=== PATIENT | female | born 1985 | race Caucasian/White ===

== ENCOUNTER 2017-03-20 14:19 | Emergency (ER) | payer BC, MEDICAID ==
[~2017-03-20] VITALS: Ht 175.3 cm; Wt 106.6 kg
[~2017-03-20 14:19] MED LIST: ACHD5005 PO; ALBU17AE23 IH; ALBU2.5V4 IH; ALBU8.5H2 IH; ALBUTEROL IH; AZIT500T2 PO; Albuterol HFA IH; BUTA-234 PO; BUTA1CAP39 PO; CETI10TA17 PO; CITA20TA4 PO; DCS100C PO; DOXY100C2 PO; FLUT16SP22 NS; FLUT1DIS26 IH; FRS325T PO; GUAN1TAB17 PO; GUAN2TAB PO; HYDR-1231 PO; IBUP-1780 PO; LRT10T PO; METF500T4; METH4TAB PO; MONT10TA24 PO; MONT5TAB11 PO; ONDA8TAB6 PO; PRD10T PO; PRD20T PO; RT-ALBUINH IH; RT-ALBUINH INH; TIZA2TAB3 PO; [UNRECOGNIZED DRUG - REMARK]
[2017-03-20] MEDS ORDERED: RT-ALBUTEROL SULF 2.5 MG/3 ML PRE-MIX VIAL INH STA (14:40)
[2017-03-20] MEDS ORDERED: LACTATED RINGERS 1,000 ML IV ONE (14:40)
[2017-03-20] MEDS ORDERED: ACETAMINOPHEN 500 MG TAB (TYLENOL) PO ONE (14:45)
--- NOTE | 2017-03-20 14:52 | ED Respiratory ---
General Stated Complaint: N/V/D FEVER Source: patient Exam Limitations: no limitations History of Present Illness Time seen by provider: 14:36 Initial Comments Patient resists ER by private conveyance with a chief complaint that since 10: 00 last night she is had body aches, chills, fever with a MAXIMUM TEMPERATURE of 101F. Her daughter came home sick with very similar symptoms about 6 days ago. Patient has asthma and has been using her Ventolin as well as she took 5 mg albuterol just before coming in. She took 800 mg of Motrin about 5 or 10 minutes before coming in as well. She's not had any Tylenol or Motrin for that. She feels short of breath, wheezy and has had a dry cough. She has not had a flu vaccine this year. Allergies and Home Medications Allergies Coded Allergies: cefuroxime (Verified Allergy, Mild, 08/04/12) Home Medications Albuterol Sulfate 6.7 Gm Hfa.aer.ad, 2 PUFF INH Q4H PRN for SHORTNESS OF BREATH, (Reported) Albuterol Sulfate 8.5 Gm Hfa.aer.ad, 1-2 PUFF IH PRN, #1 Ref 5 2 puffs every 4 hrs as needed for SOB/wheezing Prescribed by: KELLIE CHAHAL on 11/19/15 0830 Cetirizine HCl 10 Mg Tablet, 10 MG PO DAILY, (Reported) Fluticasone Propionate 16 Gm [place].susp, 0 SPRAY NS BID, #1 Prescribed by: WEN LAUREN on 11/19/15 0932 Fluticasone/Salmeterol 1 Each Blst.w.dev, 1 EACH IH BID, #1 Ref 5 Prescribed by: KELLIE CHAHAL on 11/19/15 0830 Guanfacine HCl 2 Mg Tablet, 1 MG PO DAILY, (Reported) TAKES 1/2 (2MG) TABLET Ibuprofen 800 Mg Tablet, 800 MG PO Q8H PRN for PAIN, (Reported) Montelukast Sodium 10 Mg Tablet, 10 MG PO HS, (Reported) Prednisone 10 Mg Tab, 10 MG PO DAILY, #42 Ref 0 Take 6 tabs(60mg)daily, decrease by 1 tab(10mg) every other day. Prescribed by: KELLIE CHAHAL on 11/19/15 0830 Constitutional: chills, diaphoresis, fever, malaise (body aches) EENTM: nose congestion, No ear discharge, No hearing loss, No ear pain, No eye pain, No hoarseness, No nose pain, No throat pain, No throat swelling Respiratory: cough, No phlegm, short of breath, No stridor, wheezing Cardiovascular: No chest pain, No Hx of Intervention, No syncope Gastrointestinal: No abdominal pain, No constipation, No diarrhea, nausea, No vomiting Genitourinary: No discharge, No dysuria : No (Mirena in place) Skin: No pruritus, No rash Psychiatric/Neurological: Headache, Denies Numbness, Denies Paresthesia Past Uzluqxm-Qjsedb-Bncubq Hx Patient Social History Alcohol Use: Denies Use Recreational Drug Use: No Smoking Status: Former Smoker Type Used: Cigarettes Former Smoker, Quit: Nov 04, 2008 Recent Foreign Travel: No Contact w/Someone Who Travel: No Recent Hopitalizations: No Immunizations Up To Date Tetanus Booster (TDap): Unknown Date of Pneumonia Vaccine: Aug 04, 2012 Date of Influenza Vaccine: Apr 10, 2012 Seasonal Allergies Seasonal Allergies: Yes Surgeries Surgeries: Abdominal, Gallbladder, Orthopedic Respiratory Respiratory Disorders: Asthma Neurological Neurological Disorders: Headaches /Migraines, Traumatic Brain Injury 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 System Hx 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 Disorders: No Sexually Transmitted Disease: No HIV/AIDS: No Blood Transfusions Adverse Reaction to a Blood Tr: No Family Medical History Family Medial History: Diabetes mellitus 19 FATHER 19 MOTHER Hypertension 19 FATHER 19 MOTHER Myocardial infarction 19 FATHER 19 MOTHER Physical Exam Vital Signs Vital Sign - Last 12Hours 03/20/17 15:10 Temp 100.4 Pulse 118 Resp 20 B/P (MAP) 143/80 (101) Pulse Ox 95 O2 Delivery Room Air Capillary Refill : General Appearance: WD/WN, mild distress Eyes: Bilateral Eye Normal Inspection, Bilateral Eye PERRL, Bilateral Eye EOMI HEENT: PERRL/EOMI, pharynx normal, other (bilateral TMs dull with clear effusion and retraction on the left side) Neck: non-tender, supple, normal inspection Respiratory: chest non-tender, no respiratory distress, no accessory muscle use , No accessory muscle use, No rales, wheezing, expiration Cardiovascular: normal peripheral pulses, regular rate, rhythm, no edema Gastrointestinal: non tender, soft Extremities: no pedal edema, normal capillary refill Neurologic/Psychiatric: alert, oriented x 3 Skin: normal color, warm/dry Progress/Results/Core Measures Suspected Sepsis SIRS Temperature: Pulse: Respiratory Rate: Laboratory Tests 03/20/17 14:41: White Blood Count 8.5 Blood Pressure / Mean: Laboratory Tests 03/20/17 14:41: Creatinine 0.91, Platelet Count 262, Total Bilirubin 0.6 Results/Orders Lab Results Laboratory Tests Test 03/20/17 14:41 Range/Units White Blood Count 8.5 4.3-11.0 10^3/uL Red Blood Count 4.46 4.35-5.85 10^6/uL Hemoglobin 14.5 11.5-16.0 G/DL Hematocrit 42 35-52 % Mean Corpuscular Volume 94 80-99 FL Mean Corpuscular Hemoglobin 33 25-34 PG Mean Corpuscular Hemoglobin Concent 35 32-36 G/DL Red Cell Distribution Width 13.2 10.0-14.5 % Platelet Count 262 130-400 10^3/uL Mean Platelet Volume 10.8 H 7.4-10.4 FL Neutrophils (%) (Auto) 81 H 42-75 % Lymphocytes (%) (Auto) 6 L 12-44 % Monocytes (%) (Auto) 13 H 0-12 % Eosinophils (%) (Auto) 0 0-10 % Basophils (%) (Auto) 0 0-10 % Neutrophils # (Auto) 6.9 1.8-7.8 X 10^3 Lymphocytes # (Auto) 0.5 L 1.0-4.0 X 10^3 Monocytes # (Auto) 1.1 H 0.0-1.0 X 10^3 Eosinophils # (Auto) 0.0 0.0-0.3 10^3/uL Basophils # (Auto) 0.0 0.0-0.1 10^3/uL Neutrophils % (Manual) 77 % Lymphocytes % (Manual) 10 % Monocytes % (Manual) 12 % Eosinophils % (Manual) 1 % Basophils % (Manual) 0 % Band Neutrophils 0 % Blood Morphology Comment NORMAL Sodium Level 141 135-145 MMOL/L Potassium Level 3.3 L 3.6-5.0 MMOL/L Chloride Level 108 H 98-107 MMOL/L Carbon Dioxide Level 21 21-32 MMOL/L Anion Gap 12 5-14 MMOL/L Blood Urea Nitrogen 10 7-18 MG/DL Creatinine 0.91 0.60-1.30 MG/DL Estimat Glomerular Filtration Rate > 60 BUN/Creatinine Ratio 11 Glucose Level 117 H 70-105 MG/DL Calcium Level 9.1 8.5-10.1 MG/DL Total Bilirubin 0.6 0.1-1.0 MG/DL Aspartate Amino Transf (AST/SGOT) 17 5-34 U/L Alanine Aminotransferase (ALT/SGPT) 26 0-55 U/L Alkaline Phosphatase 58 40-136 U/L C-Reactive Protein High Sensitivity 2.74 H 0.00-0.50 MG/DL Total Protein 7.5 6.4-8.2 GM/DL Albumin 4.3 3.2-4.5 GM/DL Micro Results Microbiology 03/20/17 Influenza Types A,B Antigen (DEJON) - Final, Complete My Orders Orders - JUDD ORANTES Cbc With Automated Diff (03/20/17 14:40) Comprehensive Metabolic Panel (03/20/17 14:40) Hs C Reactive Protein (03/20/17 14:40) Influenza A And B Antigens (03/20/17 14:40) Chest Pa/Lat (2 View) (03/20/17 14:40) Albuterol Pre-Mix Nebs (Rt) (Proventil (03/20/17 14:40) Saline Lock/Iv-Start (03/20/17 14:40) Lactated Ringers (Lr 1000 Ml Iv Solution (03/20/17 14:40) Acetaminophen Tablet (Tylenol Tablet) (03/20/17 14:45) Svn Sm Volume Nebulizer Rt-Rfs (03/20/17 14:40) Manual Differential (03/20/17 14:41) Ondansetron Injection (Zofran Injectio (03/20/17 15:00) Medications Given in ED Current Medications Medications Dose Ordered Sig/Herber Route Start Time Stop Time Status Last Admin Dose Admin Acetaminophen 1,000 mg ONCE ONCE PO 03/20/17 14:45 03/20/17 14:46 DC 03/20/17 15:03 1,000 MG Lactated Ringer's 1,000 ml @ 0 mls/hr Q0M ONCE IV 03/20/17 14:40 03/20/17 14:43 DC 03/20/17 15:04 0 MLS/HR Ondansetron HCl 4 mg ONCE ONCE IVP 03/20/17 15:00 03/20/17 15:02 DC 03/20/17 15:07 4 MG Vital Signs/I&O Vital Sign - Last 12Hours 03/20/17 03/20/17 03/20/17 15:10 15:10 15:14 Temp 100.4 Pulse 118 Resp 20 B/P (MAP) 143/80 (101) Pulse Ox 95 96 O2 Delivery Room Air Capillary Refill : Progress Note #1: Time: 14:45 Progress Note Patient still has some wheezing despite getting albuterol and give her another dose see how she responds to that. We'll get a chest x-ray PA and lat as well as some basic labs. If her influenza is negative then we'll go ahead and do a full sepsis workup. Influenza versus bronchitis/asthma exacerbation versus pneumonia. If her wheezing is persistent and not responsive to albuterol she may need steroids as well. Progress Note #2: Time: 15:33 Progress Note After the breathing treatment the patient's breath sounds are 90% improved. Expiratory wheezes are just barely audible bilaterally. This is very acceptable and the patient should do well to go home and treat herself with her nebulized albuterol. She says she has a refill left yet so does not need more. We will send her a dose of steroids to be used if needed. We have given her return precautions. Finally we'll give her some nausea medicine in case her nausea comes back. Diagnostic Imaging Diagonstic Imaging: Xray Plain Films/CT/US/NM/MRI: chest (2v) Comments Expanded lungs. No acute cardiopulmonary processes noted. VIA [facility]. [place], [place] NAME: AVILAMARY LOU [facility] REC#: [id number] PT STATUS: REG ER : 1985 PHYSICIAN: JUDD ORANTES MD ADMIT DATE: 03/20/17/ER Draft Date of Exam:03/20/17 CHEST PA/LAT (2 VIEW) EXAMINATION: PA and lateral chest. INDICATION: Fever, cough. FINDINGS: The heart size is within normal limits and stable when compared to 11/16/2015. The lungs are clear. There is no evidence for failure, pneumonia, or for a pleural effusion to suggest an acute abnormality. The mediastinum is not widened. The osseous structures are intact. The dextroscoliosis of the lower thoracic spine seen previously is again evident and no different. IMPRESSION: There is no evidence for active disease. Dictated on workstation # [id number] Dict: 03/20/17 1505 Trans: 03/20/17 1519 [id number] Interpreted by: GEOVANNY DILL MD Electronically signed by: Reviewed: Reviewed by Me Departure Impression Impression: Primary Impression: Acute asthma exacerbation Qualified Codes: J45.901 - Unspecified asthma with (acute) exacerbation Additional Impression: Upper respiratory infection Qualified Codes: J06.9 - Acute upper respiratory infection, unspecified Disposition: HOME, SELF-CARE Condition: Improved Departure-Patient Inst. Decision time for Depature: 15:34 Referrals: MATT KENNEDY MD (PCP/Family) Primary Care Physician Patient Instructions: Asthma, Adult (DC), Viral Upper Respiratory Infection, Adult (DC) Add. Discharge Instructions: Drink plenty fluids and use humidifiers and vapor rubs such as Vicks or Mentholatum. If you have fever, body aches, chills, fatigue use 1000 g of Tylenol every 8 hours and or 800 mg of ibuprofen every 8 hours. If you're having nausea take one tablet of Zofran place under tongue and allow it to absorb 3 your mouth. If you're shortness of breath is not improving with the albuterol treatments every 6 hours and as needed every 4 hours then start the steroids. This is still not helping and you are still getting short of breath please return to the ER. Follow up with your primary care physician within the next 1-2 weeks. Scripts Prednisone (Prednisone) 20 Mg Tab 40 MG PO DAILY for 5 Days, #10 TAB 0 Refills Prov: JUDD ORANTES 03/20/17 Ondansetron (Ondansetron Odt) 4 Mg Tab.rapdis 4 MG PO Q6H Y for NAUSEA/VOMITING, #8 TAB 0 Refills Prov: JUDD ORANTES 03/20/17 Work/School Note: Work Release Form Date Seen in the Emergency Department: Mar 20, 2017 Return to Work: Mar 22, 2017 Restrictions: No Restrictions Copy Copies To 1: MATT KENNEDY MD, TITUS J Mar 20, 2017 14:52
[2017-03-20 14:53] LABS: BASOPHILS % (AUTO) 0 % (0-10); EOSINOPHILS % (AUTO) 0 % (0-10); HEMATOCRIT 42 % (35-52); HEMOGLOBIN 14.5 G/DL (11.5-16.0); LYMPHOCYTES # (AUTO) 0.5 X 10^3 (1.0-4.0); LYMPHOCYTES % (AUTO) 6 % (12-44); MEAN CORPUSCULAR HEMOGLOBIN 33 PG (25-34); MEAN CORPUSCULAR HGB CONC 35 G/DL (32-36); MEAN CORPUSCULAR VOLUME 94 FL (80-99); MEAN PLATELET VOLUME 10.8 FL (7.4-10.4); MONOCYTES # (AUTO) 1.1 X 10^3 (0.0-1.0); MONOCYTES % (AUTO) 13 % (0-12); NEUTROPHILS # (AUTO) 6.9 X 10^3 (1.8-7.8); NEUTROPHILS % (AUTO) 81 % (42-75); PLATELET COUNT 262 10^3/uL (130-400); RED BLOOD COUNT 4.46 10^6/uL (4.35-5.85); RED CELL DISTRIBUTION WIDTH 13.2 % (10.0-14.5); WHITE BLOOD COUNT 8.5 10^3/uL (4.3-11.0)
[2017-03-20] MEDS ORDERED: ONDANSETRON 4 MG/2 ML (SDV) Z0FRAN IVP ONE (15:00)
[2017-03-20 15:12] LABS: ALANINE AMINOTRANSFERASE 26 U/L (0-55); ALBUMIN 4.3 GM/DL (3.2-4.5); ALKALINE PHOSPHATASE 58 U/L (40-136); BILIRUBIN,TOTAL 0.6 MG/DL (0.1-1.0); BUN/CREATININE RATIO 11; CALCIUM 9.1 MG/DL (8.5-10.1); CARBON DIOXIDE 21 MMOL/L (21-32); CHLORIDE 108 MMOL/L (98-107); CREATININE SERUM 0.91 MG/DL (0.60-1.30); GFR ESTIMATED > 60; GLUCOSE 117 MG/DL (70-105); POTASSIUM 3.3 MMOL/L (3.6-5.0); SODIUM 141 MMOL/L (135-145); TOTAL PROTEIN 7.5 GM/DL (6.4-8.2)
--- NOTE | 2017-03-20 15:19 | Diagnostic Imaging Report ---
EXAMINATION: PA and lateral chest. INDICATION: Fever, cough. FINDINGS: The heart size is within normal limits and stable when compared to 11/16/2015. The lungs are clear. There is no evidence for failure, pneumonia, or for a pleural effusion to suggest an acute abnormality. The mediastinum is not widened. The osseous structures are intact. The dextroscoliosis of the lower thoracic spine seen previously is again evident and no different. IMPRESSION: There is no evidence for active disease. Dictated by: Dictated on workstation # [id number]
[2017-03-20 15:23] LABS: BAND NEUTROPHILS 0 %; BASOPHILS % (MANUAL) 0 %; EOSINOPHILS % (MANUAL) 1 %; LYMPHOCYTES % (MANUAL) 10 %; MONOCYTES % (MANUAL) 12 %; NEUTROPHILS % (MANUAL) 77 %; RBC MORPH NORMAL
[2017-03-20] MEDS ORDERED: ONDA4TAB11 PO (15:36)
[2017-03-20] MEDS ORDERED: PRD20T PO (15:36)
[2017-03-20 15:53] VITALS: BP 136/73
== END 2017-03-20 15:54 | disposition home or self-care (01) ==
LOC: EDUNIT# 14:19 → ER 14:20
DX: J45.901 Unspecified asthma with (acute) exacerbation (principal); J06.9 Acute upper respiratory infection, unspecified; G43.909 Migraine, unspecified, not intractable, without status migrainosus; Z87.820 Personal history of traumatic brain injury; Z87.891 Personal history of nicotine dependence
CPT/HCPCS: 36415; 71046; 80053; 85007; 85027; 86141; 87804; 94640; 96361; 96374

== ENCOUNTER 2017-04-05 14:00 | Observation (INO) | payer BC ==
[~2017-04-05] VITALS: Ht 175.3 cm; Wt 109.4 kg
[~2017-04-05 14:00] MED LIST changes: +ONDA4TAB11 PO
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
[2017-04-05 14:36] LABS: BASOPHILS % (AUTO) 0 % (0-10); EOSINOPHILS # (AUTO) 0.1 10^3/uL (0.0-0.3); EOSINOPHILS % (AUTO) 1 % (0-10); HEMATOCRIT 39 % (35-52); HEMOGLOBIN 12.9 G/DL (11.5-16.0); LYMPHOCYTES # (AUTO) 1.4 X 10^3 (1.0-4.0); LYMPHOCYTES % (AUTO) 8 % (12-44); MEAN CORPUSCULAR HEMOGLOBIN 32 PG (25-34); MEAN CORPUSCULAR HGB CONC 33 G/DL (32-36); MEAN CORPUSCULAR VOLUME 97 FL (80-99); MEAN PLATELET VOLUME 11.1 FL (7.4-10.4); MONOCYTES # (AUTO) 1.3 X 10^3 (0.0-1.0); MONOCYTES % (AUTO) 7 % (0-12); NEUTROPHILS # (AUTO) 15.9 X 10^3 (1.8-7.8); NEUTROPHILS % (AUTO) 85 % (42-75); PLATELET COUNT 267 10^3/uL (130-400); RED BLOOD COUNT 3.98 10^6/uL (4.35-5.85); RED CELL DISTRIBUTION WIDTH 13.7 % (10.0-14.5); WHITE BLOOD COUNT 18.8 10^3/uL (4.3-11.0)
[2017-04-05 14:53] LABS: ALANINE AMINOTRANSFERASE 25 U/L (0-55); ALBUMIN 3.9 GM/DL (3.2-4.5); ALKALINE PHOSPHATASE 61 U/L (40-136); BILIRUBIN,TOTAL 0.7 MG/DL (0.1-1.0); BUN/CREATININE RATIO 9; CALCIUM 8.7 MG/DL (8.5-10.1); CARBON DIOXIDE 24 MMOL/L (21-32); CHLORIDE 108 MMOL/L (98-107); GFR ESTIMATED > 60; GLUCOSE 102 MG/DL (70-105); POTASSIUM 4.1 MMOL/L (3.6-5.0); SODIUM 142 MMOL/L (135-145); TOTAL PROTEIN 6.9 GM/DL (6.4-8.2)
[2017-04-05] MEDS ORDERED: fentaNYL INJECTION 100 MCG/2 ML AMP IVP STA ×2 (14:57→18:06)
[2017-04-05] MEDS ORDERED: NS IV 1000 ML 1,000 ML IV ONE (14:59)
[2017-04-05] MEDS ORDERED: ONDANSETRON 4 MG/2 ML (SDV) Z0FRAN IVP ONE (15:00)
[2017-04-05 15:01] LABS: BAND NEUTROPHILS 4 %; BASOPHILS % (MANUAL) 0 %; EOSINOPHILS % (MANUAL) 0 %; LYMPHOCYTES % (MANUAL) 6 %; MONOCYTES % (MANUAL) 10 %; NEUTROPHILS % (MANUAL) 80 %; RBC MORPH NORMAL
--- NOTE | 2017-04-05 15:10 | ED GU-Female ---
General Chief Complaint: -Female Stated Complaint: UTERAL PAIN--FAINT FEELING Nursing Triage Note: pt reports lower abdominal pain/pelvic pain since yesterday and spotting. pt reports she has recently had a colonscopy and transvag ultrasound on monday for recent unexplained weightloss. Nursing Sepsis Screen: No Definite Risk Source: patient Exam Limitations: no limitations History of Present Illness Date Seen by Provider: Apr 05, 2017 Time Seen by Provider: 14:50 Initial Comments Here with complaint of lower abdominal pain starting yesterday and some vaginal bleeding. She has Mirena IUD and states that she has not had bleeding for some time. Does have colonoscopy and had a vaginal ultrasound as well couple days ago. Complains of dysuria but no diarrhea. Complains of pain with bowel movements or urination. Timing/Duration: yesterday Severity/Quality: moderate, severe Location: suprapubic, vaginal, urethral Radiation: RLQ, LLQ Activities at Onset: none Sexual Ponshewaing History: less than 2 months ago, single partner Modifying Factors: Worsens With Movement Associated Symptoms: abdominal pain, dysuria, No fever/chills, No lower back pain, nausea/vomiting, urinary frequency Allergies and Home Medications Allergies Coded Allergies: cefuroxime (Verified Allergy, Mild, 08/04/12) Home Medications Albuterol Sulfate 6.7 Gm Hfa.aer.ad, 2 PUFF INH Q4H PRN for SHORTNESS OF BREATH, (Reported) Albuterol Sulfate 8.5 Gm Hfa.aer.ad, 1-2 PUFF IH PRN, #1 Ref 5 2 puffs every 4 hrs as needed for SOB/wheezing Prescribed by: KELLIE CHAHAL on 11/19/15 0830 Cetirizine HCl 10 Mg Tablet, 10 MG PO DAILY, (Reported) Fluticasone Propionate 16 Gm [place].susp, 0 SPRAY NS BID, #1 Prescribed by: WEN LAUREN on 11/19/15 0932 Fluticasone/Salmeterol 1 Each Blst.w.dev, 1 EACH IH BID, #1 Ref 5 Prescribed by: KELLIE CHAHAL on 11/19/15 0830 Guanfacine HCl 2 Mg Tablet, 1 MG PO DAILY, (Reported) TAKES 1/2 (2MG) TABLET Ibuprofen 800 Mg Tablet, 800 MG PO Q8H PRN for PAIN, (Reported) Montelukast Sodium 10 Mg Tablet, 10 MG PO HS, (Reported) Ondansetron 4 Mg Tab.rapdis, 4 MG PO Q6H PRN for NAUSEA/VOMITING, #8 Ref 0 Prescribed by: JUDD ORANTES on 03/20/17 1536 Prednisone 10 Mg Tab, 10 MG PO DAILY, #42 Ref 0 Take 6 tabs(60mg)daily, decrease by 1 tab(10mg) every other day. Prescribed by: KELLIE CHAHAL on 11/19/15 0830 Prednisone 20 Mg Tab, 40 MG PO DAILY for 5 Days, #10 Ref 0 Prescribed by: JUDD ORANTES on 03/20/17 1536 Constitutional: see HPI, No chills, No fever EENTM: no symptoms reported Respiratory: no symptoms reported Cardiovascular: no symptoms reported, No chest pain, No edema Gastrointestinal: abdominal pain, nausea, No vomiting Genitourinary: burning, dysuria, pain Musculoskeletal: no symptoms reported Skin: no symptoms reported Psychiatric/Neurological: No Symptoms Reported All Other Systemes Reviewed Negative Unless Noted: Yes Past Rbcyrfz-Iyvcap-Xprbbr Hx Patient Social History Alcohol Use: Denies Use Recreational Drug Use: No Smoking Status: Former Smoker Type Used: Cigarettes Former Smoker, Quit: Nov 04, 2008 Recent Foreign Travel: No Contact w/Someone Who Travel: No Recent Infectious Disease Expo: No Recent Hopitalizations: No Physical Abuse: No Sexual Abuse: No Mistreated: No Fear: No Immunizations Up To Date Tetanus Booster (TDap): Unknown Date of Pneumonia Vaccine: Aug 04, 2012 Date of Influenza Vaccine: Apr 10, 2012 Seasonal Allergies Seasonal Allergies: Yes Surgeries History of Surgeries: Yes (LEFT KNEE ARTHROSCOPY X2, UMBILICAL HERNIA REPAIR, colonoscopy) Surgeries: Abdominal, Gallbladder, Orthopedic Respiratory History of Respiratory Disorde: Yes (ALLERGIES) Respiratory Disorders: Asthma Cardiovascular History of Cardiac Disorders: No Neurological History of Neurological Disord: Yes (turrets ) Neurological Disorders: Headaches /Migraines, Traumatic Brain Injury 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 System Hx 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 Disorders: No Sexually Transmitted Disease: No HIV/AIDS: No Gastrointestinal History of Gastrointestinal Di: No Musculoskeletal History of Musculoskeletal Dis: No Endocrine History of Endocrine Disorders: No Cancer History of Cancer: No Psychosocial History of Psychiatric Problem: No Suicide Risk Score: 0 Integumentary History of Skin or Integumenta: No Blood Transfusions History of Blood Disorders: Yes (ANEMIA (menstral cycles heavy)) Adverse Reaction to a Blood Tr: No Reviewed Nursing Assessment Reviewed/Agree w Nursing PMH: Yes Family Medical History Family Medial History: Diabetes mellitus 19 FATHER 19 MOTHER Hypertension 19 FATHER 19 MOTHER Myocardial infarction 19 FATHER 19 MOTHER Physical Exam Vital Signs Vital Sign - Last 12Hours 04/05/17 14:26 Temp 98.2 Pulse 90 Resp 16 B/P (MAP) 111/68 (82) Pulse Ox 98 Capillary Refill : Less Than 3 Seconds General Appearance: WD/WN, no apparent distress HEENT: PERRL/EOMI, pharynx normal Neck: full range of motion, supple Cardiovascular: no murmur, tachycardia Respiratory: lungs clear, normal breath sounds Gastrointestinal: normal bowel sounds, soft, tenderness (bilateral lower quadrants and suprapubic) Back: normal inspection, no CVA tenderness, no vertebral tenderness Extremities: non-tender, normal inspection Neurologic/Psychiatric: alert, oriented x 3 Skin: normal color, warm/dry Progress/Results/Core Measures Suspected Sepsis Recent Fever Within 48 Hours: No Infection Criteria Present: None New/Unexplained Altered Menta: No Sepsis Screen: No Definite Risk Sepsis Diagnosis: SIRS Temperature:98.2 Pulse: 90 Respiratory Rate: 16 Laboratory Tests 04/05/17 14:22: White Blood Count 18.8H Blood Pressure 111 /68 Mean: 82 Laboratory Tests 04/05/17 14:22: Creatinine 0.80, Platelet Count 267, Total Bilirubin 0.7 Results/Orders Lab Results Laboratory Tests Test 04/05/17 14:22 04/05/17 16:21 Range/Units White Blood Count 18.8 H 4.3-11.0 10^3/uL Red Blood Count 3.98 L 4.35-5.85 10^6/uL Hemoglobin 12.9 11.5-16.0 G/DL Hematocrit 39 35-52 % Mean Corpuscular Volume 97 80-99 FL Mean Corpuscular Hemoglobin 32 25-34 PG Mean Corpuscular Hemoglobin Concent 33 32-36 G/DL Red Cell Distribution Width 13.7 10.0-14.5 % Platelet Count 267 130-400 10^3/uL Mean Platelet Volume 11.1 H 7.4-10.4 FL Neutrophils (%) (Auto) 85 H 42-75 % Lymphocytes (%) (Auto) 8 L 12-44 % Monocytes (%) (Auto) 7 0-12 % Eosinophils (%) (Auto) 1 0-10 % Basophils (%) (Auto) 0 0-10 % Neutrophils # (Auto) 15.9 H 1.8-7.8 X 10^3 Lymphocytes # (Auto) 1.4 1.0-4.0 X 10^3 Monocytes # (Auto) 1.3 H 0.0-1.0 X 10^3 Eosinophils # (Auto) 0.1 0.0-0.3 10^3/uL Basophils # (Auto) 0.0 0.0-0.1 10^3/uL Neutrophils % (Manual) 80 % Lymphocytes % (Manual) 6 % Monocytes % (Manual) 10 % Eosinophils % (Manual) 0 % Basophils % (Manual) 0 % Band Neutrophils 4 % Blood Morphology Comment NORMAL Sodium Level 142 135-145 MMOL/L Potassium Level 4.1 3.6-5.0 MMOL/L Chloride Level 108 H 98-107 MMOL/L Carbon Dioxide Level 24 21-32 MMOL/L Anion Gap 10 5-14 MMOL/L Blood Urea Nitrogen 7 7-18 MG/DL Creatinine 0.80 0.60-1.30 MG/DL Estimat Glomerular Filtration Rate > 60 BUN/Creatinine Ratio 9 Glucose Level 102 70-105 MG/DL Calcium Level 8.7 8.5-10.1 MG/DL Total Bilirubin 0.7 0.1-1.0 MG/DL Aspartate Amino Transf (AST/SGOT) 21 5-34 U/L Alanine Aminotransferase (ALT/SGPT) 25 0-55 U/L Alkaline Phosphatase 61 40-136 U/L Total Protein 6.9 6.4-8.2 GM/DL Albumin 3.9 3.2-4.5 GM/DL Urine Color YELLOW Urine Clarity SLIGHTLY CLOUDY Urine pH 8 5-9 Urine Specific [place] 1.010 L 1.016-1.022 Urine Protein 2+ H NEGATIVE Urine Glucose (UA) NEGATIVE NEGATIVE Urine Ketones NEGATIVE NEGATIVE Urine Nitrite NEGATIVE NEGATIVE Urine Bilirubin NEGATIVE NEGATIVE Urine Urobilinogen NORMAL NORMAL MG/DL Urine Leukocyte Esterase 3+ H NEGATIVE Urine RBC (Auto) 5+ H NEGATIVE Urine RBC 25-50 H /HPF Urine WBC TNTC H /HPF Urine Squamous Epithelial Cells 2-5 /HPF Urine Crystals NONE /LPF Urine Bacteria FEW H /HPF Urine Casts NONE /LPF Urine Mucus SMALL H /LPF Urine Culture Indicated YES My Orders Orders - VINCE ARRIAZA MD Fentanyl Injection (Sublimaze Injection (04/05/17 14:57) Ondansetron Injection (Zofran Injectio (04/05/17 15:00) Ns Iv 1000 Ml (Sodium Chloride 0.9%) (04/05/17 14:59) Ceftriaxone Injection (Rocephin Injectio (04/05/17 17:15) Phenazopyridine Tablet (Pyridium Tablet) (04/05/17 17:15) Medications Given in ED Current Medications Medications Dose Ordered Sig/Herber Route Start Time Stop Time Status Last Admin Dose Admin Ceftriaxone Sodium 1000 mg/ Sodium Chloride 50 ml @ 100 mls/hr ONCE ONCE IV 04/05/17 17:15 04/05/17 17:44 DC 04/05/17 17:11 100 MLS/HR Ondansetron HCl 4 mg ONCE ONCE IVP 04/05/17 15:00 04/05/17 15:01 DC 04/05/17 15:21 4 MG Phenazopyridine HCl 100 mg ONCE ONCE PO 04/05/17 17:15 04/05/17 17:16 DC 04/05/17 17:10 100 MG Sodium Chloride 1,000 ml @ 0 mls/hr Q0M ONCE IV 04/05/17 14:59 04/05/17 15:01 DC 04/05/17 15:22 0 MLS/HR Vital Signs/I&O Vital Sign - Last 12Hours 04/05/17 14:26 Temp 98.2 Pulse 90 Resp 16 B/P (MAP) 111/68 (82) Pulse Ox 98 Capillary Refill : Less Than 3 Seconds Blood Pressure Mean: 82 Progress Note : Progress Note Seen and evaluated. IV, labs, UA, normal saline 1 L bolus and fentanyl 50 g IV with Zofran 4 mg IV ordered. Monitor patient. 1730: UA is markedly positive. Rocephin 1 g IV ordered. I did discuss the case with Dr. Hope and he has not concerned about the colonoscopy portion and thinks this is probably UTI related to the pelvic ultrasound and procedure possibly. Patient reports that she's taken Rocephin successfully in the past as well as Keflex so we will go with that therapy. Overall feels better now. Discharged home with return precautions. Patient verbalize understanding instructions and agreement with plan. Departure Impression Impression: Primary Impression: Urinary tract infection Qualified Codes: N30.01 - Acute cystitis with hematuria Disposition: HOME, SELF-CARE Condition: Improved Departure-Patient Inst. Decision time for Depature: 17:44 Referrals: MATT KENNEDY MD (PCP/Family) Primary Care Physician Patient Instructions: Urinary Tract Infection, Adult (DC) Add. Discharge Instructions: All discharge instructions reviewed with patient and/or family. Voiced understanding. Take medications as directed. You may take ibuprofen 800 mg every 8 hours as needed for pain. You may take Tylenol 1000 mg every 8 hours as needed for pain. Drink plenty of fluids. Follow-up with your Dr. in a few days for recheck. Return for worse pain, fever, vomiting, weakness, breathing problems or other concerns as needed. Scripts Phenazopyridine HCl (Pyridium) 100 Mg Tablet 100 MG PO TID, #6 TAB 0 Refills Prov: VINCE ARRIAZA MD 04/05/17 Cephalexin (Cephalexin) 500 Mg Tablet 500 MG PO BID, #14 TAB 0 Refills Prov: VINCE ARRIAZA MD 04/05/17 VINCE ARRIAZA MD Apr 05, 2017 15:10
[2017-04-05 16:29] LABS: BILIRUBIN,URINE NEGATIVE (NEGATIVE); CLARITY,URINE SLIGHTLY CLOUDY; COLOR,URINE YELLOW; GLUCOSE, URINE (UA) NEGATIVE (NEGATIVE); KETONES,URINE NEGATIVE (NEGATIVE); LEUKOCYTE ESTERASE ,URINE 3+ (NEGATIVE); NITRITE,URINE NEGATIVE (NEGATIVE); PH,URINE 8 (5-9); PROTEIN,URINE 2+ (NEGATIVE); UROBILINOGEN,URINE NORMAL (NORMAL)
[2017-04-05 16:41] LABS: BACTERIA,URINE FEW /HPF; RBC,URINE 25-50 /HPF; WBC,URINE TNTC /HPF
[2017-04-05] MEDS ORDERED: cefTRIAXone INJECTION 1,000 MG in NS (IVPB) 50 ML IV ONE (17:15)
[2017-04-05] MEDS ORDERED: PHENAZOPYRIDINE 100 MG (PYRIDIUM) TABLET PO ONE (17:15)
[2017-04-05] MEDS ORDERED: CEPH500T PO (17:53)
[2017-04-05] MEDS ORDERED: PHEN-639 PO (17:53)
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
[2017-04-05 20:25] VITALS: BP 112/69
[2017-04-05] MEDS ORDERED: CATHETER FLUSH 10 ML SYR IV PRN (20:30)
[2017-04-05] MEDS ORDERED: ONDANSETRON 4 MG/2 ML (SDV) Z0FRAN IV PRN (20:30)
[2017-04-05] MEDS ORDERED: fentaNYL INJECTION 100 MCG/2 ML AMP IV PRN (20:30)
[2017-04-05] MEDS ORDERED: KETOROLAC 30 MG/ML VIAL IV PRN (20:30)
[2017-04-05] MEDS: NS IV 1000 ML 1,000 ML IV SCH (20:41)
[2017-04-05] MEDS ORDERED: PANTOPRAZOLE 40 MG/10 ML (PROTONIX) VIAL IV SCH (21:00)
[2017-04-05] MEDS ORDERED: ACETAMINOPHEN 325 MG TABLET/CAPLET (TYLENOL) PO PRN (21:30)
[2017-04-05] MEDS ORDERED: IBUPROFEN TABLET 200 MG TAB PO PRN (21:30)
[2017-04-05] MEDS ORDERED: ACETAMINOPHEN 325 MG TABLET/CAPLET (TYLENOL) ONE (21:43)
[2017-04-06 00:24] VITALS: BP 110/60
[2017-04-06 03:52] VITALS: BP 98/64
[2017-04-06] MEDS: NS IV 1000 ML 1,000 ML IV SCH ×2 (04:54→12:31)
[2017-04-06 06:22] LABS: BASOPHILS % (AUTO) 0 % (0-10); EOSINOPHILS # (AUTO) 0.2 10^3/uL (0.0-0.3); EOSINOPHILS % (AUTO) 1 % (0-10); HEMATOCRIT 35 % (35-52); HEMOGLOBIN 11.6 G/DL (11.5-16.0); LYMPHOCYTES # (AUTO) 1.9 X 10^3 (1.0-4.0); LYMPHOCYTES % (AUTO) 13 % (12-44); MEAN CORPUSCULAR HEMOGLOBIN 33 PG (25-34); MEAN CORPUSCULAR HGB CONC 33 G/DL (32-36); MEAN CORPUSCULAR VOLUME 98 FL (80-99); MEAN PLATELET VOLUME 10.8 FL (7.4-10.4); MONOCYTES # (AUTO) 1.6 X 10^3 (0.0-1.0); MONOCYTES % (AUTO) 10 % (0-12); NEUTROPHILS # (AUTO) 11.6 X 10^3 (1.8-7.8); NEUTROPHILS % (AUTO) 76 % (42-75); PLATELET COUNT 238 10^3/uL (130-400); RED BLOOD COUNT 3.57 10^6/uL (4.35-5.85); RED CELL DISTRIBUTION WIDTH 13.7 % (10.0-14.5); WHITE BLOOD COUNT 15.3 10^3/uL (4.3-11.0)
[2017-04-06 06:44] LABS: ALANINE AMINOTRANSFERASE 23 U/L (0-55); ALBUMIN 3.4 GM/DL (3.2-4.5); ALKALINE PHOSPHATASE 51 U/L (40-136); BILIRUBIN,TOTAL 1.6 MG/DL (0.1-1.0); BUN/CREATININE RATIO 9; CALCIUM 8.2 MG/DL (8.5-10.1); CARBON DIOXIDE 25 MMOL/L (21-32); CHLORIDE 109 MMOL/L (98-107); CREATININE SERUM 0.77 MG/DL (0.60-1.30); GFR ESTIMATED > 60; GLUCOSE 89 MG/DL (70-105); POTASSIUM 3.9 MMOL/L (3.6-5.0); SODIUM 143 MMOL/L (135-145); TOTAL PROTEIN 5.9 GM/DL (6.4-8.2)
[2017-04-06] MEDS ORDERED: INFLUENZA TRIvalent 2017-2018 0.5 ML/45 MCG SYR IM ONE (07:00)
[2017-04-06] MEDS ORDERED: OMEP40CA36 PO (07:58)
[2017-04-06] MEDS ORDERED: VALA500T PO (07:58)
[2017-04-06 08:00] VITALS: BP 97/59
[2017-04-06] MEDS ORDERED: IBUP-1780 PO (08:08)
[2017-04-06] MEDS ORDERED: SUCR1TAB36 PO (08:08)
[2017-04-06] MEDS ORDERED: MULT-35 PO (08:08)
[2017-04-06] MEDS ORDERED: BUDE10.2 INH (08:08)
[2017-04-06] MEDS ORDERED: PROM25SU44 RC (08:08)
[2017-04-06] MEDS ORDERED: NON-FORMULARY MEDICATION 1 EA EA (Guanfacine HCl 1 MG) PO SCH (09:00)
[2017-04-06] MEDS ORDERED: SUCRALFATE 1 GM (CARAFATE) TAB PO SCH (09:00)
[2017-04-06] MEDS ORDERED: VALACYCLOVIR 500 MG TAB (VALTREX) PO SCH (09:00)
[2017-04-06] MEDS ORDERED: PROMETHAZINE 25 MG (PHENERGAN) SUPP RC PRN (09:00)
[2017-04-06] MEDS ORDERED: IBUPROFEN 800 MG (MOTRIN) TAB PO PRN (09:00)
--- NOTE | 2017-04-06 09:06 | Short Stay Summary-Hospitalist ---
HPI History of Present Illness: HPI/Chief Complaint CC: Severe pain due to UTI HPI: This is a 32-year-old white female clinic patient of Dr. Mallory out of [facility] who recently had a colonoscopy on Monday by Dr. Hope had a pelvic ultrasound due to mass palpated but it appeared to be a retroflexed uterus who presents to the ER with complaints of severe abdominal pain and fever. She was found to have acute UTI placed on Rocephin empirically but due to the severe pain she required hospitalization for observation and pain control and monitoring leukocytosis of 18,000 on admission. Currently she is about to eat a clear liquid diet she agrees with the plan for likely discharge this afternoon and Keflex and Pyridium have 40 been sent to [facility] per ER physician who saw her yesterday. Dr. Hope has been consulted in case this was related to colonoscopy but it appears that that was an uncomplicated procedure and it was just precautionary consultation. 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) Alcohol Use: Denies Use Recreational Drug Use: No Smoking Status: Former Smoker Former Smoker, Quit: Nov 04, 2008 Type Used: Cigarettes Physical Abuse Screen: No Sexual Abuse: No Recent Foreign Travel: No Contact w/other who traveled: No Recent Hopitalizations: No Recent Infectious Disease Expo: No Immunizations Up To Date Tetanus Booster (TDap): Unknown Pediatric: Yes Date of Pneumonia Vaccine: Aug 04, 2012 Date of Influenza Vaccine: Apr 10, 2012 Seasonal Allergies Seasonal Allergies: Yes Surgeries Yes Abdominal, Gallbladder, Orthopedic Respiratory Yes Asthma Currently Using CPAP: No Currently Using BIPAP: No Cardiovascular No Neurological Yes (terrets) Headaches /Migraines, Traumatic Brain Injury 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 System : No Hx 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 Disorders: No Sexually Transmitted Disease: Yes (herpes ) HIV/AIDS: No Female 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 Disorders: Denies Genitourinary No Gastrointestinal Yes Gall Bladder Disease Musculoskeletal No Endocrine History of Endocrine Disorders: No HEENT History of HEENT Disorders: No Loss of Vision: Denies Hearing Impairment: Denies Cancer No Psychosocial History of Psychiatric Problem: No Integumentary History of Skin or Integumenta: Yes Skin/Integumentary Disorders: Herpes Blood Transfusions History of Blood Disorders: No Adverse Reaction to a Blood Tr: No Reviewed Nursing Assessment Reviewed/Agree w Nursing PMH: Yes Family Medical History Family Hx: Diabetes mellitus 19 FATHER 19 MOTHER Hypertension 19 FATHER 19 MOTHER Myocardial infarction 19 FATHER 19 MOTHER Review of Systems Constitutional: see HPI, dizziness, fever, weakness EENTM: no symptoms reported Respiratory: no symptoms reported Cardiovascular: no symptoms reported Gastrointestinal: loss of appetite, nausea, vomiting Genitourinary: decreased output, dysuria, frequency, hematuria, hesitancy, nocturia Musculoskeletal: back pain Skin: no symptoms reported Psychiatric/Neurological: Anxiety All Other Systems Reviewed Negative Unless Noted: Yes Physical Exam Physical Exam Vital Signs Vital Sign - Last 12Hours 04/05/17 04/05/17 14:26 20:25 Temp 98.2 Pulse 90 Resp 16 B/P (MAP) 111/68 (82) Pulse Ox 98 O2 Delivery Room Air Capillary Refill : Less Than 3 Seconds General Appearance: No Apparent Distress, WD/WN Eyes: Bilateral Eye Normal Inspection, Bilateral Eye PERRL HEENT: PERRL/EOMI, Normal ENT Inspection, Pharynx Normal Neck: Full Range of Motion, Normal Inspection, Non Tender, Supple, Carotid Bruit Respiratory: Chest Non Tender, Lungs Clear, Normal Breath Sounds, No Accessory Muscle Use, No Respiratory Distress Cardiovascular: Regular Rate, Rhythm, No Edema, No Gallop, No JVD, No Murmur, Normal Peripheral Pulses Gastrointestinal: Normal Bowel Sounds, No Organomegaly, No Pulsatile Mass, Non Tender, Soft Back: Normal Inspection, No CVA Tenderness, No Vertebral Tenderness Extremity: Normal Capillary Refill, Normal Inspection, Normal Range of Motion, Non Tender, No Calf Tenderness, No Pedal Edema Neurologic/Psychiatric: Alert, Oriented x3, No Motor/Sensory Deficits, Depressed Affect Skin: Normal Color, Warm/Dry Lymphatic: No Adenopathy Results Results/Procedures Lab Laboratory Tests 04/05/17 14:22 04/06/17 06:00 Short Stay Diagnosis Discharge Diagnosis-Short Stay Admission Diagnosis Assessment: Acute UTI with severe pain requiring hospitalization for pain control History of asthma Recent colonoscopy on Monday uncomplicated by Dr. Hope Leukocytosis due to UTI Final Discharge Diagnosis Assessment: Acute UTI with severe pain requiring hospitalization for pain control History of asthma Recent colonoscopy on Monday uncomplicated by Dr. Hope Leukocytosis due to UTI Conclusion Plan Plan: Advance diet Ambulate IV Rocephin empirically Await urine culture Keflex and peridium have both been sent in to [facility] already by ER doctor Will send home with small amount of pain medication and follow-up with Dr. Mallory for urine culture results. Copy Copies To 1: MATT MALLORY MD Clinical Quality Measures DVT/VTE Risk/Contraindication: Risk Factor Score Per Nursin RFS Level Per Nursing on Admit: 1=Low/No VTE PPX AYALA LAUREN DO Apr 06, 2017 09:06
[2017-04-06] MEDS ORDERED: MULTIVIT W/MINERALS TAB (THERAGRAN M) PO SCH (09:19)
[2017-04-06] MEDS ORDERED: PANTOPRAZOLE 40 MG (PROTONIX) TAB PO SCH (09:20)
[2017-04-06] MEDS ORDERED: RT-ALBUTEROL SULF 2.5 MG/3 ML PRE-MIX VIAL IH PRN (09:30)
--- NOTE | 2017-04-06 15:22 | CONSULTATION REPORT ---
DATE OF SERVICE: PRIMARY CARE PHYSICIAN: Linda Mallory MD. ADMITTING PHYSICIAN: Dr. Chow. HISTORY OF PRESENT ILLNESS: The patient is a 32-year-old female known to us. She was seen in the office for nausea and vomiting after small amounts of food. She reports that this has been going on for several months; however, has been worsening. She is status post laparoscopic cholecystectomy in 2016. She reports that since that time she has had loose stools. She does not report any red blood per rectum nor any dark tarry stools. She also reports that because of this abdominal pain discomfort and bloating sensation, she has lost approximately 20 pounds in the past several months as well. She underwent an EGD and colonoscopy at [facility] on 04/04/2017. EGD did show significant reflux esophagitis as well as gastritis. She has been placed on acid reducers in the past; however, was only currently taking Prilosec 20 mg daily. She was started on Nexium 40 mg; however, she states that the cough was too much and this was switched over back to omeprazole 20 mg daily. The colonoscopy did not show any abnormalities; however, on digital rectal examination, there was a palpable mass located anteriorly. A bimanual examination was performed, which again the lesion was palpated; however, difficult to differentiate. A transvaginal ultrasound was then performed, which did show a retroflex uterus and intrauterine device; however, no other abnormalities. She presented to [facility] with crampy lower abdominal pain. She was found to have leukocytosis with a white count of 18,000 as well as crampy lower abdominal pain. She was admitted for observation. Upon examination today, she feels much better. Her white count is trending downward and she has been afebrile. Urinalysis was also performed, which was positive. Due to the transvaginal ultrasound as well as manipulation as well as a colonoscopy recently performed, this was likely represented a urinary tract infection; however, also uterine cervicitis as well. She has improved with antibiotics and will be discharged home with Bactrim. PAST MEDICAL HISTORY: Headaches, migraines, history of closed head injury, history of herpes simplex. PAST SURGICAL HISTORY: Laparoscopic cholecystectomy in 2016. ALLERGIES: CLINDAMYCIN, PROTONIX, CEFUROXIME. MEDICATIONS: Albuterol p.r.n., Symbicort p.r.n., cetirizine 10 mg daily, guanfacine 2 mg daily, montelukast 10 mg daily, omeprazole 20 mg daily, promethazine daily, valacyclovir 500 mg daily. SOCIAL HISTORY: Previous smoke, quit 09, negative alcohol. FAMILY HISTORY: Father with hypertension and diabetes as well as myocardial infarction. VITAL SIGNS: Temperature 97.7, blood pressure 97/72, pulse 51, respirations 20, pulse ox 96% on room air. REVIEW OF SYSTEMS: Well-nourished female, currently in no acute distress. She is not experiencing any shortness of breath or difficulty breathing. No chest pain, palpitations, diaphoresis. No nausea, vomiting. No diarrhea, constipation with crampy lower abdominal pain. No fever, chills. No recent inadvertent weight loss. All other review of systems negative. PHYSICAL EXAMINATION: CHEST: Clear. Good breath sounds bilaterally. HEART: Regular, no murmurs. EXTREMITIES: No lower extremity edema, negative Homans sign. HEENT: No scleral icterus. No cervical lymphadenopathy. ABDOMEN: Soft, nontender, nondistended. SKIN: Warm and dry. LABORATORY DATA: WBC 15.3, hemoglobin 11.6, hematocrit 35, platelets 230. UA, leukocyte esterase 3+ positive with bacteria. ASSESSMENT AND PLAN: A 32-year-old female with a urinary tract infection as well as cervicitis status post recent EGD and colonoscopy. Since being admitted and placed on IV fluids and IV antibiotics, she has felt much better. Her diet has been advanced to a regular diet and she can tolerate a diet. She may go home. She did have a bowel movement last night and states that she did feel much better as well. We will recommend continued antibiotics for the next several days. We will also want her to proceed with a PPI acid cras on a b.i.d. basis as well as Carafate q.i.d. for the next two weeks. We will also await the previous biopsy results for potential H. pylori infection. Job ID: [id number] DocumentID: [id number] Dictated Date: 04/06/2017 14:29:34 [employer] Date: 04/06/2017 15:21:37 Dictated By: PEDRO CROWLEY MD
[2017-04-06] MEDS ORDERED: RT-ADVAIR HFA 115/21 MCG PER PUFF IH PRN (20:00)
[2017-04-06] MEDS ORDERED: MONTELUKAST 10 MG (SINGULAIR) TAB PO SCH (21:00)
[2017-04-07] MEDS ORDERED: LORATADINE (CLARITIN) 10 MG TAB PO SCH (09:00)
== END 2017-04-06 13:24 | disposition home or self-care (01) ==
LOC: EDUNIT# 14:00 → ER 14:02 → 4TH 18:31 → UNDOADMOB 18:31 → 4TH 20:23 → UNDODISOB 04-06 13:24
PROVIDERS: ADMIT Internal Medicine; ATTEND Internal Medicine
DX: N39.0 Urinary tract infection, site not specified (principal); N72 Inflammatory disease of cervix uteri; R10.31 Right lower quadrant pain; R10.32 Left lower quadrant pain; J45.909 Unspecified asthma, uncomplicated; Z87.891 Personal history of nicotine dependence
CPT/HCPCS: 36415; 80053; 81000; 84703; 85007; 85025; 85027; 87088; 96361; 96365; 96375; 96376; G0378

== ENCOUNTER 2017-09-24 21:07 | Emergency (ER) | payer BC ==
[~2017-09-24] VITALS: Ht 175.3 cm; Wt 102.1 kg
[~2017-09-24 21:07] MED LIST changes: +BUDE10.2 INH; +CEPH500T PO; +MULT-35 PO; +OMEP40CA36 PO; +PHEN-639 PO; +PROM25SU44 RC; +SUCR1TAB36 PO; +VALA500T PO
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
[2017-09-24] MEDS ORDERED: RX-TRAMADOL 50 MG (ULTRAM) TAB PPK#4 PO STA (22:45)
[2017-09-24] MEDS ORDERED: RX-NAPROXEN (NAPROSYN) 250 MG TAB PPK#4 PO ONE (22:45)
[2017-09-24] MEDS ORDERED: NAPR-915 PO (22:49)
[2017-09-24] MEDS ORDERED: TRAM-42 PO (22:49)
--- NOTE | 2017-09-24 22:49 | ED Lower Extremity ---
General Chief Complaint: Lower Extremity Stated Complaint: KNEE PAIN AFTER FALL Nursing Triage Note: Patient advises she dislocated her knee after she slipped on water in the bathroom. She advises previous hx. of knee dislocation. Nursing Sepsis Screen: No Definite Risk Source: patient History of Present Illness Date Seen by Provider: Sep 24, 2017 Time Seen by Provider: 22:05 Initial Comments PT ARRIVES VIA POV FROM HOME PT STATES "I DISLOCATED MY LEFT KNEE" STATES SHE WAS IN THE BATHROOM AND SLIPPED AND TWISTED AND THEN LANDED ON LEFT KNEE--STATES HER LEFT FOOT AND LEG WERE TURNED OUT LATERAL FROM REST OF LEG. STATES THEN SHE FELT IT POP BACK IN OCCURRED AROUND [address] HAS HISTORY OF LEFT KNEE DISLOCATIONS AND HAS HAD LEFT KNEE SURGERY X 2 FOR THIS PROBLEM--LAST SURGERY > 10 YEARS AGO HAS NOT TAKEN ANYTHING FOR PAOIN Onset: this evening Allergies and Home Medications Allergies Coded Allergies: clindamycin (Verified Allergy, Severe, 09/24/17) pantoprazole (Verified Allergy, Severe, 09/24/17) cefuroxime (Verified Allergy, Mild, 09/24/17) Home Medications Albuterol Sulfate 6.7 Gm Hfa.aer.ad, 2 PUFF INH Q4H PRN for SHORTNESS OF BREATH, (Reported) Budesonide/Formoterol Fumarate 10.2 Gm Hfa.aer.ad, 2 PUFF INH BID PRN for SHORTNESS OF BREATH, (Reported) Cephalexin 500 Mg Tablet, 500 MG PO BID Prescribed by: VINCE ARRIAZA on 04/05/17 175 Cetirizine HCl 10 Mg Tablet, 10 MG PO DAILY, (Reported) Guanfacine HCl 2 Mg Tablet, 1 MG PO DAILY, (Reported) TAKES 1/2 (2MG) TABLET Ibuprofen 800 Mg Tablet, 800 MG PO Q8H PRN for PAIN-MILD, (Reported) Montelukast Sodium 10 Mg Tablet, 10 MG PO HS, (Reported) Multivitamin 1 Each Tablet, 1 TAB PO DAILY, (Reported) Naproxen 500 Mg Tablet, 500 MG PO BID Prescribed by: ALMAZ PICKENS on 09/24/172248 Omeprazole 40 Mg Capsule.dr, 40 MG PO DAILY, (Reported) Promethazine HCl 25 Mg Supp.rect, 1 SUPP.RECT RC QID PRN for NAUSEA/VOMITING- 2ND LINE, (Reported) Sucralfate 1 Gm Tablet, 1 GM PO QID, (Reported) Tramadol HCl 50 Mg Tablet, 50 MG PO Q4H Prescribed by: ALMAZ PICKENS on 09/24/172248 Valacyclovir HCl 500 Mg Tablet, 500 MG PO DAILY, (Reported) Patient Home Medication List Home Medication List Reviewed: Yes Constitutional: no symptoms reported : No (LMP UNKNOWN--HAS MIRENA IUD IN PLACE--NO PERIODS) Control/STD Prophylaxis: IUD Musculoskeletal: see HPI Skin: no symptoms reported Psychiatric/Neurological: No Symptoms Reported; Denies Numbness, Denies Paresthesia, Denies Weakness Past Uvjscuj-Kzizjc-Jcqpwh Hx Patient Social History Alcohol Use: Denies Use Recreational Drug Use: No Smoking Status: Former Smoker Type Used: Cigarettes Former Smoker, Quit: Nov 04, 2008 Recent Foreign Travel: No Contact w/Someone Who Travel: No Recent Infectious Disease Expo: No Recent Hopitalizations: No Physical Abuse: No Sexual Abuse: No Immunizations Up To Date Tetanus Booster (TDap): Unknown PED Vaccines UTD: Yes Date of Pneumonia Vaccine: Aug 04, 2012 Date of Influenza Vaccine: Apr 10, 2012 Seasonal Allergies Seasonal Allergies: Yes Past Medical History Surgeries: Yes (LEFT KNEE SURGERY X 2) Abdominal, Gallbladder, Orthopedic Respiratory: Yes Asthma Currently Using CPAP: No Currently Using BIPAP: No Cardiac: No Neurological: Yes (TOURETTE'S SYNDROME) Headaches /Migraines, Traumatic Brain Injury 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 Disorders: No 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 Sexually Transmitted Disease: Yes (HERPES) HIV/AIDS: No Genitourinary: No Gastrointestinal: Yes Gastroesophageal Reflux, Gall Bladder Disease Musculoskeletal: Yes (LEFT KNEE DISLOCATIONS) Endocrine: No HEENT: No Loss of Vision: Denies Hearing Impairment: Denies Cancer: No Psychosocial: No Nursing Suicide Risk Score: 0 Integumentary: Yes Herpes Blood Disorders: No Adverse Reaction/Blood Tranf: No Family Medical History Diabetes mellitus 19 FATHER 19 MOTHER Hypertension 19 FATHER 19 MOTHER Myocardial infarction 19 FATHER 19 MOTHER Physical Exam Vital Signs Capillary Refill : Less Than 3 Seconds Height, Weight, BMI Height: 5'9.00" Weight: 225lbs. 4.0oz. 102.545279jr; 34.9 BMI Method:Stated General Appearance: no apparent distress, obese Cardiovascular: normal peripheral pulses Hips: bilateral hip non-tender, bilateral hip normal inspection, bilateral hip normal range of motion, bilateral hip no evidence of injury Legs: bilateral leg non-tender, bilateral leg normal inspection, bilateral leg normal range of motion, bilateral leg no evidence of injury Knees: right knee normal inspection; left knee other (DIFFUSE TENDERNESS TO LEFT KNEE, WITH LIMITED ROM DUE TO PAIN. UNABLE TO ASSESS LIGAMENT LAXITY DUE TO PAIN. APPEARS TO HAVE SOME MILD SWELLING TO KNEE JOINT. NO BRUISING OR OTHER EXTERNAL EVIDENCE OF TRAUMA. 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 as tested, no motor/sensory deficits, alert, normal mood/affect, oriented x 3 Skin: normal color, warm/dry Procedures/Interventions Splinting and Joint Reduction : Ming wrap: Yes Immobilizers: 19 inch Knee Ordered: Crutches Progress/Results/Core Measures Results/Orders My Orders Orders - ALMAZ PICKENS DO Knee, Left, 3 Views (09/24/17 22:13) Ming Bandage (09/24/17 22:45) Crutches (09/24/17 22:45) Knee Immobilizer (09/24/17 22:45) Rx-Naproxen (Rx-Naprosyn) (09/24/17 22:45) Rx-Tramadol Hcl (Rx-Ultram) (09/24/17 22:45) Vital Signs/I&O Diagnostic Imaging Comments XRAYS LEFT KNEE--NO ACUTE PROCESS, PENDING RADIOLOGIST REVIEW Reviewed: Reviewed by Me Departure Impression Primary Impression: Left knee injury Additional Impression: HX OF LEFT KNEE DISLOCATION Disposition: 01 HOME, SELF-CARE Condition: Stable Departure-Patient Inst. Referrals: MATT KENNEDY MD (PCP/Family) Primary Care Physician NHAN OSCAR MD Patient Instructions: DISLOCATED-JOINT, Knee Sprain (DC) Add. Discharge Instructions: MING WRAP, KNEE IMMOBILIZER AND CRUTCHES AT ALL TIMES ICE TO AREA AT 20 MINUTE INTERVALS ELEVATE LEG MUCH POSSIBLE FOLLOW UP WITH DR. OSCAR IN 2-3 DAYS FOR FURTHER CARE All discharge instructions reviewed with patient and/or family. Voiced understanding. Scripts Tramadol HCl (Ultram) 50 Mg Tablet 50 MG PO Q4H, #20 TAB Prov: ALMAZ PICKENS DO 09/24/17 Naproxen (Naproxen) 500 Mg Tablet 500 MG PO BID, #20 TAB Prov: ALMAZ PICKENS DO 09/24/17 ALMAZ PICKENS DO Sep 24, 2017 22:49
[2017-09-24 23:05] VITALS: BP 128/83
--- NOTE | 2017-09-25 06:11 | Diagnostic Imaging Report ---
INDICATION: Left knee injury with pain AP, oblique and lateral views of the left knee reveal no fracture or malalignment. There is suprapatellar spurring with corticated ossific structure near the patellar tendon insertion on the tibia which may be related to old injury. There is no significant joint fluid. No abnormal lytic or sclerotic focus is identified. IMPRESSION: Degenerative type findings in the knee which may be related to old injury. No acute knee abnormalities identified. Dictated by: Dictated on workstation # [id number]
== END 2017-09-24 23:35 | disposition home or self-care (01) ==
LOC: EDUNIT# 21:07 → ER 21:08
DX: S89.92XA Unspecified injury of left lower leg, initial encounter (principal); J45.909 Unspecified asthma, uncomplicated; G43.909 Migraine, unspecified, not intractable, without status migrainosus; Z87.820 Personal history of traumatic brain injury; Z86.19 Personal history of other infectious and parasitic diseases; Z87.828 Personal history of other (healed) physical injury and trauma; Z82.49 Family history of ischemic heart disease and other diseases of the circulatory system; Z79.51 Long term (current) use of inhaled steroids; Z88.1 Allergy status to other antibiotic agents; Z87.891 Personal history of nicotine dependence; Z88.8 Allergy status to other drugs, medicaments and biological substances; W01.0XXA Fall on same level from slipping, tripping and stumbling without subsequent striking against object, initial encounter; Y92.002 Bathroom of unspecified non-institutional (private) residence as the place of occurrence of the external cause
CPT/HCPCS: 73562

== ENCOUNTER → 2017-10-02 | Outpatient (CLI) | payer BC ==
[~2017-10-02] MED LIST changes: +NAPR-915 PO; +TRAM-42 PO
--- NOTE | 2017-10-02 09:43 | Diagnostic Imaging Report ---
PROCEDURE: MRI left joint lower extremity without contrast. TECHNIQUE: Multiplanar, multisequence MR imaging of the left knee was performed without contrast. COMPARISON: None available. INDICATION: Left knee pain after fall. FINDINGS: MENISCI Medial meniscus: No medial meniscal tear. Lateral meniscus: No lateral meniscal tear. LIGAMENTS ACL: Intact. PCL: Intact. MCL: MCL has a complete tear within its mid and distal aspect resulting in a lax configuration of the proximal tendon. A large amount of edema and hemorrhage is present surrounding the MCL, which does mildly limit the assessment for position of the torn fibers. The possibility of the torn MCL fibers being superficial to the sartorius is raised. LCL: The lateral collateral ligamentous complex is intact. EXTENSOR MECHANISM The medial patellofemoral retinaculum is completely ruptured in its proximal to mid aspect. CARTILAGE Medial compartment: Medial compartment articular cartilage is well preserved without focal high-grade chondromalacia. Lateral compartment: Partial-thickness chondral loss/chondromalacia in the posterior weightbearing aspect of the lateral tibial plateau. Patellofemoral compartment: There is a broad area of full-thickness articular cartilage defect in the lateral patellar facet. BONE No fracture, stress fracture or osteonecrosis. SOFT TISSUE Large knee joint effusion. There is extracapsular fluid along the medial aspect of the knee due to tear of the medial collateral ligament/capsule. A few small foci of susceptibility artifact are present within knee compatible with prior arthroscopy. IMPRESSION: 1. Complete tear of the MCL in its mid to distal aspect with proximal retraction of the distal fibers. This causes portion of the MCL to potentially be superficial to the sartorius ("Stener lesion of the knee "). 2. Complete tear of the medial patellofemoral retinaculum at its proximal aspect. No dislocation of the patella. 3. Large full-thickness chondral defect of the lateral patellar facet. 4. No ACL tear. 5. No meniscal tear. Dictated by: Dictated on workstation # [id number]
== END ==
LOC: RAD 08:25
PROVIDERS: ATTEND Nurse Practitioner
DX: S83.412A Sprain of medial collateral ligament of left knee, initial encounter (principal); S76.112A Strain of left quadriceps muscle, fascia and tendon, initial encounter
CPT/HCPCS: 73721

== ENCOUNTER 2017-11-30 10:03 | Outpatient (RCR) | payer BC | END 2017-12-03 | disposition home or self-care (01) | PROVIDERS: ATTEND Orthopaedic Surgery | DX: M25.562 Pain in left knee (principal); Z98.890 Other specified postprocedural states ==

== ENCOUNTER 2018-02-02 14:59 | Outpatient (RCR) | payer BC | END 2018-02-13 10:57 | disposition home or self-care (01) | PROVIDERS: ATTEND Orthopaedic Surgery | DX: M25.562 Pain in left knee (principal) ==

== ENCOUNTER 2018-09-26 15:42 | Inpatient (IN) | payer BC ==
[~2018-09-26] VITALS: Ht 175.3 cm; Wt 110.5 kg
[2018-09-26] VITALS (11 sets, daily range): BP systolic 116–135; BP diastolic 63–88
[2018-09-26] MEDS ORDERED: RT-ALBUTEROL/IPRATROPIUM 3 ML (DUONEB) VIAL ONE (15:43)
[2018-09-26] MEDS ORDERED: LORazepam INJ 2 MG/ML (ATIVAN) VIAL ONE (15:57)
[2018-09-26] MEDS ORDERED: RT-ALBUTEROL/IPRATROPIUM 3 ML (DUONEB) VIAL INH ONE ×2 (16:00→16:15)
[2018-09-26] MEDS ORDERED: RT-ALBUTEROL SULF 2.5 MG/3 ML PRE-MIX VIAL INH STA (16:02)
[2018-09-26] MEDS ORDERED: NS IV 1000 ML 1,000 ML IV ONE ×2 (16:02→17:27)
[2018-09-26] MEDS ORDERED: LORazepam INJ 2 MG/ML (ATIVAN) VIAL IVP ONE (16:15)
[2018-09-26 16:20] LABS: BASOPHILS % (AUTO) 0 % (0-10); EOSINOPHILS # (AUTO) 0.2 10^3/uL (0.0-0.3); EOSINOPHILS % (AUTO) 2 % (0-10); HEMATOCRIT 41 % (35-52); HEMOGLOBIN 13.6 G/DL (11.5-16.0); LYMPHOCYTES # (AUTO) 3.2 X 10^3 (1.0-4.0); LYMPHOCYTES % (AUTO) 24 % (12-44); MEAN CORPUSCULAR HGB CONC 33 G/DL (32-36); MEAN CORPUSCULAR VOLUME 94 FL (80-99); MEAN PLATELET VOLUME 10.2 FL (7.4-10.4); MONOCYTES # (AUTO) 0.9 X 10^3 (0.0-1.0); MONOCYTES % (AUTO) 6 % (0-12); NEUTROPHILS % (AUTO) 67 % (42-75); PLATELET COUNT 362 10^3/uL (130-400); RED CELL DISTRIBUTION WIDTH 13.1 % (10.0-14.5); WHITE BLOOD COUNT 13.3 10^3/uL (4.3-11.0)
[2018-09-26 16:21] LABS: MEAN CORPUSCULAR HEMOGLOBIN 31 PG (25-34)
[2018-09-26] MEDS ORDERED: methylPREDNISolone 125 MG (Solu-MEDROL) VIAL IVP ONE (16:30)
[2018-09-26 16:41] LABS: ALANINE AMINOTRANSFERASE 16 U/L (0-55); ALBUMIN 4.2 GM/DL (3.2-4.5); ALKALINE PHOSPHATASE 48 U/L (40-136); BILIRUBIN,TOTAL 0.5 MG/DL (0.1-1.0); BUN/CREATININE RATIO 13; CALCIUM 9.5 MG/DL (8.5-10.1); CARBON DIOXIDE 22 MMOL/L (21-32); CHLORIDE 107 MMOL/L (98-107); CREATININE SERUM 0.91 MG/DL (0.60-1.30); GFR ESTIMATED > 60; GLUCOSE 106 MG/DL (70-105); POTASSIUM 2.8 MMOL/L (3.6-5.0); SODIUM 142 MMOL/L (135-145); TOTAL PROTEIN 7.1 GM/DL (6.4-8.2)
--- OUTSIDE RECORDS SUMMARY | 2018-09-26 16:50 | XMS REPORT ---
Author Author Migration, Doctor Organization [facility] Address Unknown Phone Unavailable Care Team Providers Care Surgical Instrument Repair Specialist Name Role Phone Migration, Doctor Unavailable Unavailable PROBLEMS Type Condition ICD9-CM Code KGN54-PL Code Onset Dates Condition Status SNOMED Code Problem Screening for malignant neoplasm of the cervix V76.2 Active 261944449 Problem Encounter for removal of intrauterine contraceptive device V25.12 Active 45763739 Problem Other general counseling and advice for contraceptive management V25.09 Active 185983563 Problem Screening examination for venereal disease V74.5 Active 023772045 Problem Family history of diabetes mellitus V18.0 Active 500584525 Problem General counseling for prescription of oral contraceptives V25.01 Active 416538700892349 Problem Papanicolaou smear of cervix with low grade squamous intraepithelial lesion (LGSIL) 795.03 Active 730146476 Problem Wheezing 786.07 Active 88239794 Problem Extrinsic asthma, unspecified 493.00 Active 896497570 Problem 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 [address] [facility] [id number], [place] [address] Oct, Screening for STD (sexually transmitted disease) Z11.3 ; Trichomonas infection A59.9 ; Other specified bacterial agents as the cause of diseases classified elsewhere B96.89 and Acute vaginitis N76.0 [facility] [address] [id number] [id number] July, Dental examination V72.2 [facility] [address] [id number] [place] [address] Jun, [facility] [address] [id number], [place] [address] Jun, [facility] [address] [id number] [place] [address] Oct, [facility] [place] [facility] [address] [id number] [place] [address] Oct, [facility] [place] [facility] [address] [id number] [place] [address] Mar, [facility] [place] [facility] [address] [id number] [place] [address] Mar, [facility] [address] [id number], [place] [address] Aug, [facility] [place] [facility] [address] [id number], [place] [address] Aug, [facility] [place] [facility] [address] [id number], [place] [address] July, [facility] [place] [facility] [address] [id number], [place] [address] July, [facility] [place] [facility] [address] [id number], [place] [address] July, [facility] [place] [facility] [address] [id number], [place] [address] Jun, [facility] [place] [facility] [address] [id number], [place] [address] Jun, [facility] [place] [facility] [address] [id number], [place] [address] May, [facility] [place] [facility] [address] [id number], [place] [address] May, [facility] [place] [facility] [address] [id number] [place] [address] Apr, [facility] [address] [id number] [place] [address] Mar, [facility] [address] [id number] [place] [address] Feb, [facility] [address] [id number] [place] [address] Feb, [facility] [place] [facility] [address] [id number] [place] [address] Feb, [facility] [address] [id number] [place] [address] Dec, [facility] [address] [id number] [place] [address] Dec, [facility] [address] [id number] [place] [address] Aug, [facility] [address] [id number] [place] [address] July, [facility] [address] [id number] [place] [address] July, [facility] [address] [id number] [place] [address] July, [facility] [address] [id number] [place] [address] 16 Jun, 2011 [facility] [place] [facility] [address] [id number] [place] [address] 13 Jun, 2011 [facility] [place] [facility] [address] [id number] [place] [address] 10 Jun, 2011 [facility] [place] [facility] [address] [id number] [place] [address] 30 May, 2011 [facility] [place] [facility] [address] [id number] [place] [address] May, [facility] [address] [facility] [id number], [place] [address] Jan, [facility] [address] [facility] [id number], [place] [address] Jan, [facility] [address] [facility] [id number], [place] [address] Jan, [facility] [address] [facility] [id number] [place] [address] Apr, [facility] [address] [facility] [id number], [place] [address] Feb, [facility] [id number] [place] [address] Jan, [facility] [address]65100[place], [place] [address] Jan, [facility] [address]00565100[place], [place] [address] Jan, [facility] [address]00565100[place], [place] [address] Jan, [facility] [address]00565100[place], [place] [address] Jan, [facility] [address]00565100[place], [place] [address] Jan, IMMUNIZATIONS No Known Immunizations SOCIAL HISTORY Never Assessed REASON FOR VISIT EMR-[facility] PLAN OF CARE VITAL SIGNS MEDICATIONS No Known Medications RESULTS No Results PROCEDURES No Known procedures INSTRUCTIONS MEDICATIONS ADMINISTERED No Known Medications
--- OUTSIDE RECORDS SUMMARY | 2018-09-26 16:50 | XMS REPORT ---
Author Author LUCINDA YOST [facility] Address [address] [place] [address] Care Team Providers Care Water Team Leader Name Role Phone LUCINDA YOST Unavailable PROBLEMS Type Condition ICD9-CM Code SEB18-RV Code Onset Dates Condition Status SNOMED Code Problem Screening for malignant neoplasm of the cervix V76.2 Active 932103892 Problem Encounter for removal of intrauterine contraceptive device V25.12 Active 92466514 Problem Other general counseling and advice for contraceptive management V25.09 Active 669210784 Problem Screening examination for venereal disease V74.5 Active 572893777 Problem Family history of diabetes mellitus V18.0 Active 065102685 Problem General counseling for prescription of oral contraceptives V25.01 Active 936847271192968 Problem Papanicolaou smear of cervix with low grade squamous intraepithelial lesion (LGSIL) 795.03 Active 525481347 Problem Wheezing 786.07 Active 12950653 Problem Extrinsic asthma, unspecified 493.00 Active 205313766 Problem 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 46303342 Problem Elevated blood pressure reading without diagnosis of hypertension 796.2 Active 718136930 Problem Restless legs syndrome [RLS] 333.94 Active 96233661 Problem Special screening examination, human papillomavirus [HPV] V73.81 Active 784411762 Problem Acute bronchitis 466.0 Active 40834447 Problem Acute sinusitis, unspecified 461.9 Active 17309718 Problem Allergic rhinitis, cause unspecified 477.9 Active 61165884 Problem Unspecified iron deficiency anemia 280.9 Active 47511033 ALLERGIES No Information ENCOUNTERS Encounter Location Date Diagnosis [facility] [address] [facility] [id number] [place] [address] Oct, Screening for STD (sexually transmitted disease) Z11.3 ; Trichomonas infection A59.9 ; Other specified bacterial agents as the cause of diseases classified elsewhere B96.89 and Acute vaginitis N76.0 [facility] [address] [id number] [place] [id number] July, Dental examination V72.2 [facility] [address] [id number] [place] [address] 14 Jun, 2014 [facility] [address] [facility] [id number] [place] [address] Jun, [facility] [address] [id number] [place] [address] Oct, [facility] [address] [id number] [place] [address] Oct, [facility] [address] [id number] [place] [address] Mar, [facility] [address] [id number] [place] [address] Mar, [facility] [address] [id number] [place] [address] Aug, [facility] [address] [id number] [place] [address] Aug, [facility] [address] [id number] [place] [address] July, [facility] [address] [id number] [place] [address] July, [facility] [address] [id number] [place] [address] July, [facility] [address] [id number] [place] [address] Jun, [facility] [address] [facility] [id number] [place] [address] Jun, [facility] [address] [facility] [id number] [place] [address] May, [facility] [address] [id number] [place] [address] 04 May, 2012 [facility] [address] [id number] [place] [address] Apr, [facility] [address] [id number] [place] [address] Mar, [facility] [address] [id number] [place] [address] Feb, [facility] [address] [id number] [place] [address] Feb, [facility] [address] [id number] [place] [address], [place] [address] Feb, [facility] [address] [id number] [place] [address] Dec, [facility] [address] [id number] [place] [address] Dec, [facility] [address] [id number] [place] [address] Aug, [facility] [address] [id number] [place] [address] July, [facility] [address] [facility] [id number] [place] [address] July, [facility] [address] [id number] [place] [address] 15 Jul, 2011 [facility] [address] [id number] [place] [address] 16 Jun, 2011 [facility] [address] [id number] [place] [address] 13 Jun, 2011 [facility] [address] [id number] [place] [address] 10 Jun, 2011 [facility] [address] [id number] [place] [address] 30 May, 2011 [facility] [address] [facility] [id number] [place] [address] May, [facility] [address] [facility] [id number] [place] [address] Jan, [facility] [address] [facility] [id number] [place] [address] Jan, [facility] [address] [facility] [id number] [place] [address] Jan, [facility] [address] [facility] [id number] [place] [address] Apr, [facility] [address]00565100[place] [address] Feb, [facility] [address]00565100[place] [address] 15 Jan, 2010 [facility] [address]00565100[place] [address] 15 Jan, 2010 [facility] [address]00565100[place] [address] Jan, [facility] [address]00565100[place] [address] Jan, [facility] [address]00565100[place] [address] Jan, [facility] [address] [id number] [address] Jan, IMMUNIZATIONS No Known Immunizations SOCIAL HISTORY Never Assessed REASON FOR VISIT PLAN OF CARE VITAL SIGNS MEDICATIONS No Known Medications RESULTS No Results PROCEDURES No Known procedures INSTRUCTIONS MEDICATIONS ADMINISTERED No Known Medications
--- OUTSIDE RECORDS SUMMARY | 2018-09-26 16:50 | XMS REPORT ---
Author Author Migration, Doctor Organization [facility] Address Unknown Phone Unavailable Care Team Providers Care Quality Assurance Group Leader Name Role Phone Migration, Doctor Unavailable Unavailable PROBLEMS Type Condition ICD9-CM Code UMP35-QO Code Onset Dates Condition Status SNOMED Code Problem Screening for malignant neoplasm of the cervix V76.2 Active 065235269 Problem Encounter for removal of intrauterine contraceptive device V25.12 Active 92462452 Problem Other general counseling and advice for contraceptive management V25.09 Active 613571065 Problem Screening examination for venereal disease V74.5 Active 172961720 Problem Family history of diabetes mellitus V18.0 Active 085770258 Problem General counseling for prescription of oral contraceptives V25.01 Active 403802088018458 Problem Papanicolaou smear of cervix with low grade squamous intraepithelial lesion (LGSIL) 795.03 Active 506484450 Problem Wheezing 786.07 Active 09791246 Problem Extrinsic asthma, unspecified 493.00 Active 762143489 Problem 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 58892862 Problem Elevated blood pressure reading without diagnosis of hypertension 796.2 Active 032755750 Problem Restless legs syndrome [RLS] 333.94 Active 05523564 Problem Special screening examination, human papillomavirus [HPV] V73.81 Active 103212627 Problem Acute bronchitis 466.0 Active 71162287 Problem Acute sinusitis, unspecified 461.9 Active 99256826 Problem Allergic rhinitis, cause unspecified 477.9 Active 20721250 Problem Unspecified iron deficiency anemia 280.9 Active 31148745 ALLERGIES No Information ENCOUNTERS Encounter Location Date Diagnosis [facility] [address] [facility] [id number], [place] [address] Oct, Screening for STD (sexually transmitted disease) Z11.3 ; Trichomonas infection A59.9 ; Other specified bacterial agents as the cause of diseases classified elsewhere B96.89 and Acute vaginitis N76.0 [facility] [address] [id number][place] [id number] July, Dental examination V72.2 [facility] [address] [id number] [place] [address] Jun, [facility] [address] [id number], [place] [address] Jun, [facility] [address] [id number] [place] [address] Oct, [facility] [place] [facility] [address] [id number] [place] [address] Oct, [facility] [place] [facility] [address] [id number] [place] [address] Mar, [facility] [place] [facility] [address] [id number] [place] [address] Mar, [facility] [address] [id number], [place] [address] Aug, [facility] [place] [facility] [address] [id number], [place] [address] Aug, [facility] [place] [facility] [address] [id number], [place] [address] July, [facility] [place] [facility] [address] [id number], [place] [address] July, [facility] [place] [facility] [address] [id number], [place] [address] July, [facility] [place] [facility] [address] [id number], [place] [address] Jun, [facility] [place] [facility] [address] [id number], [place] [address] Jun, [facility] [place] [facility] [address] [id number], [place] [address] May, [facility] [place] [facility] [address] [id number], [place] [address] May, [facility] [place] [facility] [address] [id number] [place] [address] Apr, [facility] [address] [id number] [place] [address] Mar, [facility] [address] [id number] [place] [address] Feb, [facility] [address] [id number] [place] [address] Feb, [facility] [place] [facility] [address] [id number] [place] [address] Feb, [facility] [address] [id number] [place] [address] Dec, [facility] [address] [id number] [place] [address] Dec, [facility] [address] [id number] [place] [address] Aug, [facility] [address] [id number] [place] [address] July, [facility] [address] [id number] [place] [address] July, [facility] [address] [id number] [place] [address] July, [facility] [address] [id number] [place] [address] 16 Jun, 2011 [facility] [place] [facility] [address] [id number] [place] [address] 13 Jun, 2011 [facility] [place] [facility] [address] [id number] [place] [address] 10 Jun, 2011 [facility] [place] [facility] [address] [id number] [place] [address] 30 May, 2011 [facility] [place] [facility] [address] [id number] [place] [address] May, [facility] [address] [facility] [id number], [place] [address] Jan, [facility] [address] [facility] [id number], [place] [address] Jan, [facility] [address] [facility] [id number], [place] [address] Jan, [facility] [address] [facility] [id number] [place] [address] Apr, [facility] [address] [facility] [id number], [place] [address] Feb, [facility] [id number] [place] [address] Jan, [facility] [address]00565100[place], [place] [address] Jan, [facility] [address]00565100M[place], [place] [address] Jan, [facility] [address]00565100[place], [place] [address] Jan, [facility] [address]00565100[place], [place] [address] Jan, [facility] [address]00565100[place], [place] [address] Jan, IMMUNIZATIONS No Known Immunizations SOCIAL HISTORY Never Assessed REAS[place] FOR VISIT [place] [place] C[place] VITAL SIGNS MEDICATIONS No Known Medications RESULTS No Results PROCEDURES No Known procedures INSTRUCTIONS MEDICATIONS ADMINISTERED No Known Medications
--- OUTSIDE RECORDS SUMMARY | 2018-09-26 16:51 | XMS REPORT ---
Author Author Migration, Doctor Organization [facility] Address Unknown Phone Unavailable Care Team Providers Care Meteorology Instructor Name Role Phone Migration, Doctor Unavailable Unavailable PROBLEMS Type Condition ICD9-CM Code UED34-MC Code Onset Dates Condition Status SNOMED Code Problem Screening for malignant neoplasm of the cervix V76.2 Active 634404005 Problem Encounter for removal of intrauterine contraceptive device V25.12 Active 83002597 Problem Other general counseling and advice for contraceptive management V25.09 Active 923300982 Problem Screening examination for venereal disease V74.5 Active 847063552 Problem Family history of diabetes mellitus V18.0 Active 407643187 Problem General counseling for prescription of oral contraceptives V25.01 Active 861419931014343 Problem Papanicolaou smear of cervix with low grade squamous intraepithelial lesion (LGSIL) 795.03 Active 666292031 Problem Wheezing 786.07 Active 69038103 Problem Extrinsic asthma, unspecified 493.00 Active 106740245 Problem 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 75594167 Problem Elevated blood pressure reading without diagnosis of hypertension 796.2 Active 962545566 Problem Restless legs syndrome [RLS] 333.94 Active 76308084 Problem Special screening examination, human papillomavirus [HPV] V73.81 Active 979843127 Problem Acute bronchitis 466.0 Active 69910725 Problem Acute sinusitis, unspecified 461.9 Active 43124168 Problem Allergic rhinitis, cause unspecified 477.9 Active 79492748 Problem Unspecified iron deficiency anemia 280.9 Active 76674715 ALLERGIES No Information ENCOUNTERS Encounter Location Date Diagnosis [facility] [address] [facility] [id number], [place] [address] Oct, Screening for STD (sexually transmitted disease) Z11.3 ; Trichomonas infection A59.9 ; Other specified bacterial agents as the cause of diseases classified elsewhere B96.89 and Acute vaginitis N76.0 [facility] [address] [id number] [id number] July, Dental examination V72.2 [facility] [address] [id number] [place] [address] Jun, [facility] [address] [id number], [place] [address] Jun, [facility] [address] [id number] [place] [address] Oct, [facility] [place] [facility] [address] [id number] [place] [address] Oct, [facility] [place] [facility] [address] [id number] [place] [address] Mar, [facility] [place] [facility] [address] [id number] [place] [address] Mar, [facility] [address] [id number], [place] [address] Aug, [facility] [place] [facility] [address] [id number], [place] [address] Aug, [facility] [place] [facility] [address] [id number], [place] [address] July, [facility] [place] [facility] [address] [id number], [place] [address] July, [facility] [place] [facility] [address] [id number], [place] [address] July, [facility] [place] [facility] [address] [id number], [place] [address] Jun, [facility] [place] [facility] [address] [id number], [place] [address] Jun, [facility] [place] [facility] [address] [id number], [place] [address] May, [facility] [place] [facility] [address] [id number], [place] [address] May, [facility] [place] [facility] [address] [id number] [place] [address] Apr, [facility] [address] [id number] [place] [address] Mar, [facility] [address] [id number] [place] [address] Feb, [facility] [address] [id number] [place] [address] Feb, [facility] [place] [facility] [address] [id number] [place] [address] Feb, [facility] [address] [id number] [place] [address] Dec, [facility] [address] [id number] [place] [address] Dec, [facility] [address] [id number] [place] [address] Aug, [facility] [address] [id number] [place] [address] July, [facility] [address] [id number] [place] [address] July, [facility] [address] [id number] [place] [address] July, [facility] [address] [id number] [place] [address] 16 Jun, 2011 [facility] [place] [facility] [address] [id number] [place] [address] 13 Jun, 2011 [facility] [place] [facility] [address] [id number] [place] [address] 10 Jun, 2011 [facility] [place] [facility] [address] [id number] [place] [address] 30 May, 2011 [facility] [place] [facility] [address] [id number] [place] [address] May, [facility] [address] [facility] [id number], [place] [address] Jan, [facility] [address] [facility] [id number], [place] [address] Jan, [facility] [address] [facility] [id number], [place] [address] Jan, [facility] [address] [facility] [id number] [place] [address] Apr, [facility] [address] [facility] [id number], [place] [address] Feb, [facility] [id number] [place] [address] Jan, [facility] [address]00565[address], [place] [address] Jan, [facility] [address]00565100[place], [place] [address] Jan, [facility] [address]00565[address], [place] [address] Jan, [facility] [address]00565[address], [place] [address] Jan, [facility] [address]00565[address], [place] [address] Jan, IMMUNIZATIONS No Known Immunizations SOCIAL HISTORY Never Assessed REASON FOR VISIT E[place] [place] PLAN OF CARE VITAL SIGNS MEDICATIONS No Known Medications RESULTS No Results PROCEDURES No Known procedures INSTRUCTIONS MEDICATIONS ADMINISTERED No Known Medications
--- OUTSIDE RECORDS SUMMARY | 2018-09-26 16:51 | XMS REPORT ---
Author Author Migration, Doctor Organization [facility] Address Unknown Phone Unavailable Care Team Providers Care Metrology Engineer Name Role Phone Migration, Doctor Unavailable Unavailable PROBLEMS Type Condition ICD9-CM Code LWE58-XA Code Onset Dates Condition Status SNOMED Code Problem Screening for malignant neoplasm of the cervix V76.2 Active 717330931 Problem Encounter for removal of intrauterine contraceptive device V25.12 Active 52964360 Problem Other general counseling and advice for contraceptive management V25.09 Active 702090828 Problem Screening examination for venereal disease V74.5 Active 555201818 Problem Family history of diabetes mellitus V18.0 Active 876822099 Problem General counseling for prescription of oral contraceptives V25.01 Active 359531550600656 Problem Papanicolaou smear of cervix with low grade squamous intraepithelial lesion (LGSIL) 795.03 Active 085958460 Problem Wheezing 786.07 Active 99334186 Problem Extrinsic asthma, unspecified 493.00 Active 063679392 Problem 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 93624006 Problem Elevated blood pressure reading without diagnosis of hypertension 796.2 Active 027668843 Problem Restless legs syndrome [RLS] 333.94 Active 17393825 Problem Special screening examination, human papillomavirus [HPV] V73.81 Active 372287808 Problem Acute bronchitis 466.0 Active 80312515 Problem Acute sinusitis, unspecified 461.9 Active 16657613 Problem Allergic rhinitis, cause unspecified 477.9 Active 92368175 Problem Unspecified iron deficiency anemia 280.9 Active 94156113 ALLERGIES No Information ENCOUNTERS Encounter Location Date Diagnosis [facility] [address] [facility] [id number], [place] [address] Oct, Screening for STD (sexually transmitted disease) Z11.3 ; Trichomonas infection A59.9 ; Other specified bacterial agents as the cause of diseases classified elsewhere B96.89 and Acute vaginitis N76.0 [facility] [address] [id number][place] [address] July, Dental examination V72.2 [facility] [address] [id number] [place] [address] Jun, [facility] [address] [id number], [place] [address] Jun, [facility] [address] [id number] [place] [address] Oct, [facility] [place] [facility] [address] [id number] [place] [address] Oct, [facility] [place] [facility] [address] [id number] [place] [address] Mar, [facility] [place] [facility] [address] [id number] [place] [address] Mar, [facility] [address] [id number], [place] [address] Aug, [facility] [place] [facility] [address] [id number], [place] [address] Aug, [facility] [place] [facility] [address] [id number], [place] [address] July, [facility] [place] [facility] [address] [id number], [place] [address] July, [facility] [place] [facility] [address] [id number], [place] [address] July, [facility] [place] [facility] [address] [id number], [place] [address] Jun, [facility] [place] [facility] [address] [id number], [place] [address] Jun, [facility] [place] [facility] [address] [id number], [place] [address] May, [facility] [place] [facility] [address] [id number], [place] [address] May, [facility] [place] [facility] [address] [id number] [place] [address] Apr, [facility] [address] [id number] [place] [address] Mar, [facility] [address] [id number] [place] [address] Feb, [facility] [address] [id number] [place] [address] Feb, [facility] [place] [facility] [address] [id number] [place] [address] Feb, [facility] [address] [id number] [place] [address] Dec, [facility] [address] [id number] [place] [address] Dec, [facility] [address] [id number] [place] [address] Aug, [facility] [address] [id number] [place] [address] July, [facility] [address] [id number] [place] [address] July, [facility] [address] [id number] [place] [address] July, [facility] [address] [id number] [place] [address] 16 Jun, 2011 [facility] [place] [facility] [address] [id number] [place] [address] 13 Jun, 2011 [facility] [place] [facility] [address] [id number] [place] [address] 10 Jun, 2011 [facility] [place] [facility] [address] [id number] [place] [address] 30 May, 2011 [facility] [place] [facility] [address] [id number] [place] [address] May, [facility] [address] [facility] [id number], [place] [address] Jan, [facility] [address] [facility] [id number], [place] [address] Jan, [facility] [address] [facility] [id number], [place] [address] Jan, [facility] [address] [facility] [id number] [place] [address] Apr, [facility] [address] [facility] [id number], [place] [address] Feb, [facility] [id number] [place] [address] Jan, [facility] [address]005[address], [place] [address] Jan, [facility] [address], [place] [address] Jan, [facility] [address], [place] [address] Jan, [facility] [address], [place] [address] Jan, [facility] [address], [place] [address] Jan, IMMUNIZATIONS No Known Immunizations SOCIAL HISTORY Never Assessed REASON FOR VISIT [place] [place]AN OF CARE VITAL SIGNS MEDICATIONS No Known Medications RESULTS No Results PROCEDURES No Known procedures INSTRUCTIONS MEDICATIONS ADMINISTERED No Known Medications
--- OUTSIDE RECORDS SUMMARY | 2018-09-26 16:51 | XMS REPORT ---
Author Author Migration, Doctor Organization [facility] Address Unknown Phone Unavailable Care Team Providers Care Carpet Loom Fixer Name Role Phone Migration, Doctor Unavailable Unavailable PROBLEMS Type Condition ICD9-CM Code XAH15-TL Code Onset Dates Condition Status SNOMED Code Problem Screening for malignant neoplasm of the cervix V76.2 Active 391828507 Problem Encounter for removal of intrauterine contraceptive device V25.12 Active 26898939 Problem Other general counseling and advice for contraceptive management V25.09 Active 243881193 Problem Screening examination for venereal disease V74.5 Active 597602824 Problem Family history of diabetes mellitus V18.0 Active 778108291 Problem General counseling for prescription of oral contraceptives V25.01 Active 744035265463401 Problem Papanicolaou smear of cervix with low grade squamous intraepithelial lesion (LGSIL) 795.03 Active 457511320 Problem Wheezing 786.07 Active 65826047 Problem Extrinsic asthma, unspecified 493.00 Active 354315681 Problem 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 48222686 Problem Elevated blood pressure reading without diagnosis of hypertension 796.2 Active 405636011 Problem Restless legs syndrome [RLS] 333.94 Active 23258963 Problem Special screening examination, human papillomavirus [HPV] V73.81 Active 242157316 Problem Acute bronchitis 466.0 Active 92563896 Problem Acute sinusitis, unspecified 461.9 Active 71627343 Problem Allergic rhinitis, cause unspecified 477.9 Active 56830037 Problem Unspecified iron deficiency anemia 280.9 Active 35191741 ALLERGIES No Information ENCOUNTERS Encounter Location Date Diagnosis [facility] [address] [facility] [id number] [address] Oct, Screening for STD (sexually transmitted disease) Z11.3 ; Trichomonas infection A59.9 ; Other specified bacterial agents as the cause of diseases classified elsewhere B96.89 and Acute vaginitis N76.0 [facility] [address] [id number][place] [address] July, Dental examination V72.2 [facility] [address] [id number] [place] [address] Jun, [facility] [address] [id number], [place] [address] Jun, [facility] [address] [id number] [place] [address] Oct, [facility] [place] [facility] [address] [id number] [place] [address] Oct, [facility] [place] [facility] [address] [id number] [place] [address] Mar, [facility] [place] [facility] [address] [id number] [place] [address] Mar, [facility] [address] [id number], [place] [address] Aug, [facility] [place] [facility] [address] [id number], [place] [address] Aug, [facility] [place] [facility] [address] [id number], [place] [address] July, [facility] [place] [facility] [address] [id number], [place] [address] July, [facility] [place] [facility] [address] [id number][place] [address] July, [facility] [place] [facility] [address] [id number], [place] [address] Jun, [facility] [place] [facility] [address] [id number], [place] [address] Jun, [facility] [place] [facility] [address] [id number], [place] [address] May, [facility] [place] [facility] [address] [id number][place] [address] May, [facility] [place] [facility] [address] [id number] [place] [address] Apr, [facility] [address] [id number] [place] [address] Mar, [facility] [address] [id number] [place] [address] Feb, [facility] [address] [id number] [place] [address] Feb, [facility] [place] [facility] [address] [id number] [place] [address] Feb, [facility] [address] [id number] [place] [address] Dec, [facility] [address] [id number] [place] [address] Dec, [facility] [address] [id number] [place] [address] Aug, [facility] [address] [id number] [place] [address] July, [facility] [address] [id number] [place] [address] July, [facility] [address] [id number] [place] [address] July, [facility] [address] [id number] [place] [address] 16 Jun, 2011 [facility] [place] [facility] [address] [id number] [place] [address] 13 Jun, 2011 [facility] [place] [facility] [address] [id number] [place] [address] 10 Jun, 2011 [facility] [place] [facility] [address] [id number] [place] [address] 30 May, 2011 [facility] [place] [facility] [address] [id number] [place] [address] May, [facility] [address] [facility] [id number], [place] [address] Jan, [facility] [address] [facility] [id number], [place] [address] Jan, [facility] [address] [facility] [id number] [address] Jan, [facility] [address] [facility] [id number] [place] [address] Apr, [facility] [address] [facility] [id number], [place] [address] Feb, [facility] [id number] [place] [address] Jan, [facility] [address]00565100[place] [address] Jan, [facility] [address]00565100[place], [place] [address] Jan, [facility] [address]00565100[place], [place] [address] Jan, [facility] [address]00565100[place], [place] [address] Jan, [facility] [address]00565100[place], [place] [address] Jan, IMMUNIZATIONS No Known Immunizations SOCIAL HISTORY Never Assessed REASON FOR VISIT [facility] [place] PLAN OF CARE VITAL SIGNS MEDICATIONS No Known Medications RESULTS No Results PROCEDURES No Known procedures INSTRUCTIONS MEDICATIONS ADMINISTERED No Known Medications
--- OUTSIDE RECORDS SUMMARY | 2018-09-26 16:51 | XMS REPORT ---
Author Author Migration, Doctor Organization [facility] Address Unknown Phone Unavailable Care Team Providers Care Field Crew Chief Name Role Phone Migration, Doctor Unavailable Unavailable PROBLEMS Type Condition ICD9-CM Code UMN19-BN Code Onset Dates Condition Status SNOMED Code Problem Screening for malignant neoplasm of the cervix V76.2 Active 709631209 Problem Encounter for removal of intrauterine contraceptive device V25.12 Active 26679101 Problem Other general counseling and advice for contraceptive management V25.09 Active 323702262 Problem Screening examination for venereal disease V74.5 Active 939609635 Problem Family history of diabetes mellitus V18.0 Active 338354065 Problem General counseling for prescription of oral contraceptives V25.01 Active 401106907850177 Problem Papanicolaou smear of cervix with low grade squamous intraepithelial lesion (LGSIL) 795.03 Active 337432010 Problem Wheezing 786.07 Active 29028747 Problem Extrinsic asthma, unspecified 493.00 Active 002591510 Problem 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 03490404 Problem Elevated blood pressure reading without diagnosis of hypertension 796.2 Active 403070505 Problem Restless legs syndrome [RLS] 333.94 Active 33434119 Problem Special screening examination, human papillomavirus [HPV] V73.81 Active 194871033 Problem Acute bronchitis 466.0 Active 32200816 Problem Acute sinusitis, unspecified 461.9 Active 31404912 Problem Allergic rhinitis, cause unspecified 477.9 Active 62397266 Problem Unspecified iron deficiency anemia 280.9 Active 35192736 ALLERGIES No Information ENCOUNTERS Encounter Location Date Diagnosis [facility] [address] [facility] [id number], [place] [address] Oct, Screening for STD (sexually transmitted disease) Z11.3 ; Trichomonas infection A59.9 ; Other specified bacterial agents as the cause of diseases classified elsewhere B96.89 and Acute vaginitis N76.0 [facility] [address] [id number] [address] July, Dental examination V72.2 [facility] [address] [id number] [place] [address] Jun, [facility] [address] [id number], [place] [address] Jun, [facility] [address] [id number] [place] [address] Oct, [facility] [place] [facility] [address] [id number] [place] [address] Oct, [facility] [place] [facility] [address] [id number] [place] [address] Mar, [facility] [place] [facility] [address] [id number] [place] [address] Mar, [facility] [address] [id number], [place] [address] Aug, [facility] [place] [facility] [address] [id number], [place] [address] Aug, [facility] [place] [facility] [address] [id number], [place] [address] July, [facility] [place] [facility] [address] [id number], [place] [address] July, [facility] [place] [facility] [address] [id number], [place] [address] July, [facility] [place] [facility] [address] [id number], [place] [address] Jun, [facility] [place] [facility] [address] [id number], [place] [address] Jun, [facility] [place] [facility] [address] [id number], [place] [address] May, [facility] [place] [facility] [address] [id number], [place] [address] May, [facility] [place] [facility] [address] [id number] [place] [address] Apr, [facility] [address] [id number] [place] [address] Mar, [facility] [address] [id number] [place] [address] Feb, [facility] [address] [id number] [place] [address] Feb, [facility] [place] [facility] [address] [id number] [place] [address] Feb, [facility] [address] [id number] [place] [address] Dec, [facility] [address] [id number] [place] [address] Dec, [facility] [address] [id number] [place] [address] Aug, [facility] [address] [id number] [place] [address] July, [facility] [address] [id number] [place] [address] July, [facility] [address] [id number] [place] [address] July, [facility] [address] [id number] [place] [address] 16 Jun, 2011 [facility] [place] [facility] [address] [id number] [place] [address] 13 Jun, 2011 [facility] [place] [facility] [address] [id number] [place] [address] 10 Jun, 2011 [facility] [place] [facility] [address] [id number] [place] [address] 30 May, 2011 [facility] [place] [facility] [address] [id number] [place] [address] May, [facility] [address] [facility] [id number], [place] [address] Jan, [facility] [address] [facility] [id number], [place] [address] Jan, [facility] [address] [facility] [id number], [place] [address] Jan, [facility] [address] [facility] [id number], [place] [address] Apr, [facility] [address] [facility] [id number], [place] [address] Feb, [facility] [address] [facility] [id number], [place] [address] Jan, [facility] [address]65[address], [place] [address] Jan, [facility] [address]65[address], [place] [address] Jan, [facility] [address]00565[address], [place] [address] Jan, [facility] [address]65[address], [place] [address] Jan, [facility] [address] [id number], [place] [address] Jan, IMMUNIZATIONS No Known Immunizations SOCIAL HISTORY Never Assessed REASON FOR VISIT [facility] [place] VITAL SIGNS MEDICATIONS No Known Medications RESULTS Name Result Date Reference Range PAP SMEAR 2012-07-06 [employer] INSULATOR CYTOLOGY REPORT FOOTNOTE PAP RESULT PROCEDURES No Known procedures INSTRUCTIONS MEDICATIONS ADMINISTERED No Known Medications
--- OUTSIDE RECORDS SUMMARY | 2018-09-26 16:51 | XMS REPORT ---
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 32191793 Problem Acute sinusitis, unspecified 461.9 Active 26515072 Problem Acute bronchitis 466.0 Active 48174983 Problem Unspecified iron deficiency anemia 280.9 Active 06963486 Problem Allergic rhinitis, cause unspecified 477.9 Active 94374210 Problem Encounter for removal of intrauterine contraceptive device V25.12 Active 64609033 Problem Screening for malignant neoplasm of the cervix V76.2 Active 492915631 Problem General counseling for prescription of oral contraceptives V25.01 Active 247028447640530 Problem Family history of diabetes mellitus V18.0 Active 219322643 Problem Screening examination for venereal disease V74.5 Active 594393232 Problem Special screening examination, human papillomavirus [HPV] V73.81 Active 317885560 Problem Other general counseling and advice for contraceptive management V25.09 Active 320123124 Problem Elevated blood pressure reading without diagnosis of hypertension 796.2 Active 007833170 ALLERGIES Substance Reaction Event Type Date Status Zinacef Unknown Drug Allergy Oct, Active Clindamycin HCl nausea Drug Allergy Oct, Active ENCOUNTERS Encounter Location Date Diagnosis [facility] [address] [facility] [id number] [address] Oct, Screening for STD (sexually transmitted disease) Z11.3 ; Trichomonas infection A59.9 ; Other specified bacterial agents as the cause of diseases classified elsewhere B96.89 and Acute vaginitis N76.0 [facility] [address] [id number] [place] [address] July, Dental examination V72.2 [facility] [address] [id number] [address] Jun, [facility] [address] [id number] [place] [address] Jun, [facility] [address] [id number] [place] [address] Oct, [facility] [address] [id number] [place] [address] Oct, [facility] [address] [id number] [place] [address] Mar, [facility] [address] [id number] [place] [address] Mar, [facility] [address] [id number] [place] [address] Aug, [facility] [address] [id number] [place] [address] Aug, [facility] [address] [id number] [place] [address] July, [facility] [address] [id number] [place] [address] July, [facility] [address] [id number] [place] [address] July, [facility] [address] [id number] [place] [address] Jun, [facility] [address] [id number] [place] [address] Jun, [facility] [address] [id number] [place] [address] May, [facility] [address] [id number] [place] [address] May, [facility] [address] [id number] [place] [address] Apr, [facility] [address] [id number] [place] [address] Mar, [facility] [address] [id number] [place] [address] Feb, [facility] [address] [id number] [place] [address] Feb, [facility] [address] [id number] [place] [address] Feb, [facility] [address] [id number] [place] [address] Dec, [facility] [address] [id number] [place] [address] Dec, [facility] [address] [id number] [place] [address] Aug, [facility] [address] [id number] [place] [address] July, [facility] [address] [id number] [place] [address] July, [facility] [address] [id number] [place] [address] July, [facility] [place] [facility] [address] [id number] [place] [address] 16 Jun, 2011 [facility] [place] [facility] [address] [id number] [place] [address] 13 Jun, 2011 [facility] [address] [id number] [place] [address] Jun, [facility] [id number] [address] May, [facility] [id number] [address] May, [facility] [id number] [address] Jan, [facility] [id number] [place] [address] Jan, [facility] [address]00565100[place] [address] Jan, [facility] [id number] [place] [address] Apr, [facility] [id number] [place] [address] Feb, [facility] [address]65100[place] [address] Jan, [facility] [id number] [address] Jan, [facility] [id number] [address] Jan, [facility] [id number] [address] Jan, [facility] [id number] [address] Jan, [facility] [address] [id number] [address] Jan, IMMUNIZATIONS No Known Immunizations SOCIAL HISTORY Never Assessed REASON FOR VISIT STD check per pts request. reports vaginal odor et yellow discharge for 4 days. [email or web address] PLAN OF CARE Activity Details Follow Up prn Reason: Pending Test GC/CHLAM PROBE (STATE) VITAL SIGNS Height 69 in 2017-10-07 Weight 224.0 lbs 2017-10-07 Temperature 97.7 degrees Fahrenheit 2017-10-07 Heart Rate 74 bpm 2017-10-07 Respiratory Rate 20 2017-10-07 BMI 33.08 kg/m2 2017-10-07 Blood pressure systolic 122 mmHg 2017-10-07 Blood pressure diastolic 72 mmHg 2017-10-07 MEDICATIONS Medication Instructions Dosage Frequency Start Date End Date Duration Status Flagyl 500 MG Orally every 12 hrs 1 tablet 12h Oct, Oct, 7 days Active Cetirizine HCl 10 MG Orally Once a day 1 tablet 24h Active Tenex 1 mg 1 capsule by Oral route 2 times per day1mg bid May, Active ProAir HFA 90 mcg/actuation inhale 2 puffs by Inhalation route every 4 hours as neededPRNshortness of breath/cough Mar, Active Valtrex 500 MG Orally Once a day 1 tablet 24h Active RESULTS Name Result Date Reference Range TRICHOMONAS (IN HOUSE) 2017-10-07 TRICHOMONAS positive Control + Lot # [id number] Exp date 03 05 2018 BACTERIAL VAGINOSIS (IN HOUSE) 2017-10-07 RESULTS positive Control + Lot # [id number] Exp date 2017 11 PROCEDURES Procedure Date Ordered Result Body Site Bacterial Vaginosis In House Oct 07, 2017 TRICHOMONAS ASSAY W/OPTIC Oct 07, 2017 CULTURE, BACTERIA, OTHER Oct 07, 2017 No Charge Oct 07, 2017 INSTRUCTIONS MEDICATIONS ADMINISTERED No Known Medications
--- OUTSIDE RECORDS SUMMARY | 2018-09-26 16:51 | XMS REPORT ---
Author Author Migration, Doctor Organization [facility] Address Unknown Phone Unavailable Care Team Providers Care Edge Brusher Name Role Phone Migration, Doctor Unavailable Unavailable PROBLEMS Type Condition ICD9-CM Code UWP62-QT Code Onset Dates Condition Status SNOMED Code Problem Screening for malignant neoplasm of the cervix V76.2 Active 300811817 Problem Encounter for removal of intrauterine contraceptive device V25.12 Active 56624186 Problem Other general counseling and advice for contraceptive management V25.09 Active 136175341 Problem Screening examination for venereal disease V74.5 Active 720353819 Problem Family history of diabetes mellitus V18.0 Active 545313713 Problem General counseling for prescription of oral contraceptives V25.01 Active [id number] Problem Papanicolaou smear of cervix with low grade squamous intraepithelial lesion (LGSIL) 795.03 Active 640601189 Problem Wheezing 786.07 Active 33306780 Problem Extrinsic asthma, unspecified 493.00 Active 246765136 Problem 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 [address] [facility] [id number] [address] Oct, Screening for STD (sexually transmitted disease) Z11.3 ; Trichomonas infection A59.9 ; Other specified bacterial agents as the cause of diseases classified elsewhere B96.89 and Acute vaginitis N76.0 [facility] [address] [id number] [id number] July, Dental examination V72.2 [facility] [address] [id number] [place] [address] Jun, [facility] [address] [id number], [place] [address] Jun, [facility] [address] [id number] [place] [address] Oct, [facility] [place] [facility] [address] [id number] [place] [address] Oct, [facility] [place] [facility] [address] [id number] [place] [address] Mar, [facility] [place] [facility] [address] [id number] [place] [address] Mar, [facility] [address] [id number], [place] [address] Aug, [facility] [place] [facility] [address] [id number], [place] [address] Aug, [facility] [place] [facility] [address] [id number], [place] [address] July, [facility] [place] [facility] [address] [id number], [place] [address] July, [facility] [place] [facility] [address] [id number], [place] [address] July, [facility] [place] [facility] [address] [id number], [place] [address] Jun, [facility] [place] [facility] [address] [id number], [place] [address] Jun, [facility] [place] [facility] [address] [id number], [place] [address] May, [facility] [place] [facility] [address] [id number], [place] [address] May, [facility] [place] [facility] [address] [id number] [place] [address] Apr, [facility] [address] [id number] [place] [address] Mar, [facility] [address] [id number] [place] [address] Feb, [facility] [address] [id number] [place] [address] Feb, [facility] [place] [facility] [address] [id number] [place] [address] Feb, [facility] [address] [id number] [place] [address] Dec, [facility] [address] [id number] [place] [address] Dec, [facility] [address] [id number] [place] [address] Aug, [facility] [address] [id number] [place] [address] July, [facility] [address] [id number] [place] [address] July, [facility] [address] [id number] [place] [address] July, [facility] [address] [id number] [place] [address] 16 Jun, [address] [facility] [place] [facility] [address] [id number] [place] [address] 13 Jun, 2011 [facility] [place] [facility] [address] [id number] [place] [address] 10 Jun, 2011 [facility] [place] [facility] [address] [id number] [place] [address] 30 May, [address] [facility] [place] [facility] [address] [id number] [place] [address] May, [facility] [address]00565[place], [place] [address] Jan, [facility] [address]00565100[place], [place] [address] Jan, [facility] [address]00565100[place], [place] [address] Jan, [facility] [address] [place] [id number] [place] [address] Apr, [facility] [id number] [place] [address] Feb, [facility] [address] [place] [id number] [place] [address] Jan, [facility] [address] [place] [id number] [place] [address] Jan, [facility] [address] [address] [id number] [place] [address] Jan, [facility] [address]65[address], [place] [address] Jan, [facility] [address]65100[place], [place] [address] Jan, [facility] [address], [place] [address] Jan, IMMUNIZATIONS No Known Immunizations SOCIAL HISTORY Never Assessed REASON FOR VISIT [facility] PLAN OF CARE VITAL SIGNS MEDICATIONS Medication Instructions Dosage Frequency Start Date End Date Duration Status Tenex 1 mg 1 capsule by Oral route 2 times per day1mg bid May, Active ProAir HFA 90 mcg/actuation inhale 2 puffs by Inhalation route every 4 hours as neededPRNshortness of breath/cough Mar, Active Ferrous Sulfate 325 mg (65 mg iron) 1 Tablet by Oral route BID May, Active Flagyl 500 mg 1 tablet by Oral route 2 times per day for 7 days July, Active MethylPREDNISolone 4 mg 4 mg by Oral route 1 time per dayas directed Mar, Active Albuterol 0.083% taek 1 dose by Nebulizer route 4 times per day Feb, Active PredniSONE 20 mg take 1 tablet by Oral route 2 times per day for 5 day(s) Feb, Active Lessina 0.1-20 mg-mcg take 1 tablet by oral route once daily Jun, Active Zithromax Z-Magdaleno 250 mg 2 tablet by Oral route 1 time per dayon day 1 then take 1 tab daily on days 2-5 Mar, Active Requip 0.5 mg 1 tablet by Oral route 1 time per day May, Active RESULTS No Results PROCEDURES No Known procedures INSTRUCTIONS MEDICATIONS ADMINISTERED No Known Medications
--- OUTSIDE RECORDS SUMMARY | 2018-09-26 16:51 | XMS REPORT ---
Author Author Migration, Doctor Organization [facility] Address Unknown Phone Unavailable Care Team Providers Care Door To Door Selling Distributor Name Role Phone Migration, Doctor Unavailable Unavailable PROBLEMS Type Condition ICD9-CM Code PXY59-AP Code Onset Dates Condition Status SNOMED Code Problem Screening for malignant neoplasm of the cervix V76.2 Active 089283765 Problem Encounter for removal of intrauterine contraceptive device V25.12 Active 49371467 Problem Other general counseling and advice for contraceptive management V25.09 Active 351423476 Problem Screening examination for venereal disease V74.5 Active 320233980 Problem Family history of diabetes mellitus V18.0 Active 349379026 Problem General counseling for prescription of oral contraceptives V25.01 Active 636342885692640 Problem Papanicolaou smear of cervix with low grade squamous intraepithelial lesion (LGSIL) 795.03 Active 747063865 Problem Wheezing 786.07 Active 93540300 Problem Extrinsic asthma, unspecified 493.00 Active 341925100 Problem 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 83118108 Problem Elevated blood pressure reading without diagnosis of hypertension 796.2 Active 613594627 Problem Restless legs syndrome [RLS] 333.94 Active 19627075 Problem Special screening examination, human papillomavirus [HPV] V73.81 Active 132393398 Problem Acute bronchitis 466.0 Active 75759854 Problem Acute sinusitis, unspecified 461.9 Active 44869978 Problem Allergic rhinitis, cause unspecified 477.9 Active 17113302 Problem Unspecified iron deficiency anemia 280.9 Active 20933539 ALLERGIES No Information ENCOUNTERS Encounter Location Date Diagnosis [facility] [address] [facility] [id number], [place] [address] Oct, Screening for STD (sexually transmitted disease) Z11.3 ; Trichomonas infection A59.9 ; Other specified bacterial agents as the cause of diseases classified elsewhere B96.89 and Acute vaginitis N76.0 [facility] [address] [id number] [id number] July, Dental examination V72.2 [facility] [address] [id number] [place] [address] Jun, [facility] [address] [id number], [place] [address] Jun, [facility] [address] [id number] [place] [address] Oct, [facility] [place] [facility] [address] [id number] [place] [address] Oct, [facility] [place] [facility] [address] [id number] [place] [address] Mar, [facility] [place] [facility] [address] [id number] [place] [address] Mar, [facility] [address] [id number], [place] [address] Aug, [facility] [place] [facility] [address] [id number], [place] [address] Aug, [facility] [place] [facility] [address] [id number], [place] [address] July, [facility] [place] [facility] [address] [id number], [place] [address] July, [facility] [place] [facility] [address] [id number], [place] [address] July, [facility] [place] [facility] [address] [id number], [place] [address] Jun, [facility] [place] [facility] [address] [id number], [place] [address] Jun, [facility] [place] [facility] [address] [id number], [place] [address] May, [facility] [place] [facility] [address] [id number], [place] [address] May, [facility] [place] [facility] [address] [id number] [place] [address] Apr, [facility] [address] [id number] [place] [address] Mar, [facility] [address] [id number] [place] [address] Feb, [facility] [address] [id number] [place] [address] Feb, [facility] [place] [facility] [address] [id number] [place] [address] Feb, [facility] [address] [id number] [place] [address] Dec, [facility] [address] [id number] [place] [address] Dec, [facility] [address] [id number] [place] [address] Aug, [facility] [address] [id number] [place] [address] July, [facility] [address] [id number] [place] [address] July, [facility] [address] [id number] [place] [address] July, [facility] [address] [id number] [place] [address] 16 Jun, 2011 [facility] [place] [facility] [address] [id number] [place] [address] 13 Jun, 2011 [facility] [place] [facility] [address] [id number] [place] [address] 10 Jun, 2011 [facility] [place] [facility] [address] [id number] [place] [address] 30 May, 2011 [facility] [place] [facility] [address] [id number] [place] [address] May, [facility] [address] [facility] [id number], [place] [address] Jan, [facility] [address] [facility] [id number], [place] [address] Jan, [facility] [address] [facility] [id number], [place] [address] Jan, [facility] [address] [facility] [id number] [place] [address] Apr, [facility] [address] [facility] [id number], [place] [address] Feb, [facility] [id number] [place] [address] Jan, [facility] [address]65100[place], [place] [address] Jan, [facility] [address]65100[place], [place] [address] Jan, [facility] [address]65100[place], [place] [address] Jan, [facility] [address]100[place], [place] [address] Jan, [facility] [address], [place] [address] Jan, IMMUNIZATIONS No Known Immunizations SOCIAL HISTORY Never Assessed REASON FOR VISIT [facility] PLAN OF CARE VITAL SIGNS MEDICATIONS No Known Medications RESULTS No Results PROCEDURES No Known procedures INSTRUCTIONS MEDICATIONS ADMINISTERED No Known Medications
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
--- NOTE | 2018-09-26 17:12 | Diagnostic Imaging Report ---
INDICATION: Wheezing. COMPARISON: 03/20/2017. EXAMINATION: Frontal and lateral views of the chest were obtained. FINDINGS: Normal heart size and pulmonary vascularity. The lungs are clear. There are no signs of infiltrate, pleural effusions or pneumothoraces. The visualized osseous structures show no acute abnormalities. IMPRESSION: No acute process. No signs of infiltrates, effusions or pneumothoraces. Dictated by: Dictated on workstation # [id number]
[2018-09-26] MEDS ORDERED: POTASSIUM CL 10MEQ/50ML IVPB 50 ML IV ONE (17:15)
--- NOTE | 2018-09-26 17:17 | ED Respiratory ---
General Chief Complaint: Respiratory Problems Stated Complaint: ASTHMA Nursing Triage Note: Pt to ED with audible wheezes and c/o SOB. 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 Pt c/o sore throat and chest pain. Source: patient Exam Limitations: no limitations History of Present Illness Date Seen by Provider: Sep 26, 2018 Time Seen by Provider: 15:49 Initial Comments This 33-year-old woman presents to the emergency room with very tight wheezing and shortness of breath. She has a history of asthma. She takes inhaled treatments at home but has lost her nebulizer in a recent move. She did use her inhalers earlier today but is struggling despite using them. She developed a sore throat and cough productive of sputum this morning. She is afebrile. She denies smoking. Allergies and Home Medications Allergies Coded Allergies: clindamycin (Verified Allergy, Severe, 09/24/17) pantoprazole (Verified Allergy, Severe, 09/24/17) cefuroxime (Verified Allergy, Mild, 09/24/17) Home Medications Albuterol Sulfate 6.7 Gm Hfa.aer.ad, 2 PUFF INH Q4H PRN for SHORTNESS OF BREATH, (Reported) Budesonide/Formoterol Fumarate 10.2 Gm Hfa.aer.ad, 2 PUFF INH BID PRN for SHORTNESS OF BREATH, (Reported) Cephalexin 500 Mg Tablet, 500 MG PO BID Prescribed by: VINCE ARRIAZA on 04/05/171752 Cetirizine HCl 10 Mg Tablet, 10 MG PO DAILY, (Reported) Guanfacine HCl 2 Mg Tablet, 1 MG PO DAILY, (Reported) TAKES 1/2 (2MG) TABLET Ibuprofen 800 Mg Tablet, 800 MG PO Q8H PRN for PAIN-MILD, (Reported) Montelukast Sodium 10 Mg Tablet, 10 MG PO HS, (Reported) Multivitamin 1 Each Tablet, 1 TAB PO DAILY, (Reported) Naproxen 500 Mg Tablet, 500 MG PO BID Prescribed by: ALMAZ PICKENS on 09/24/172248 Omeprazole 40 Mg Capsule.dr, 40 MG PO DAILY, (Reported) Promethazine HCl 25 Mg Supp.rect, 1 SUPP.RECT RC QID PRN for NAUSEA/VOMITING-2ND LINE, (Reported) Sucralfate 1 Gm Tablet, 1 GM PO QID, (Reported) Tramadol HCl 50 Mg Tablet, 50 MG PO Q4H Prescribed by: ALMAZ PICKENS on 09/24/17 1609 Valacyclovir HCl 500 Mg Tablet, 500 MG PO DAILY, (Reported) Patient Home Medication List Home Medication List Reviewed: Yes Review of Systems Review of Systems Constitutional: no symptoms reported EENTM: see HPI Respiratory: see HPI Cardiovascular: no symptoms reported Gastrointestinal: no symptoms reported Genitourinary: no symptoms reported : No Musculoskeletal: no symptoms reported Skin: no symptoms reported Psychiatric/Neurological: No Symptoms Reported Hematologic/Lymphatic: No Symptoms Reported Past Saaibwv-Libtsp-Oxhfje Hx Past Med/Social Hx: Reviewed Nursing Past Med/Soc Hx Patient Social History Alcohol Use: Denies Use Recreational Drug Use: No Smoking Status: Former Smoker Type Used: Cigarettes Former Smoker, Quit: Nov 04, 2008 Recent Foreign Travel: No Contact w/Someone Who Travel: No Recent Infectious Disease Expo: No Recent Hopitalizations: No Physical Abuse: No Sexual Abuse: No Immunizations Up To Date Tetanus Booster (TDap): Unknown PED Vaccines UTD: Yes Date of Pneumonia Vaccine: Aug 04, 2012 Date of Influenza Vaccine: Apr 10, 2012 Seasonal Allergies Seasonal Allergies: Yes Past Medical History Surgeries: Yes (LEFT KNEE SURGERY X 2) Abdominal, Gallbladder, Orthopedic Respiratory: Yes Asthma Currently Using CPAP: No Currently Using BIPAP: No Cardiac: No Neurological: Yes (TOURETTE'S SYNDROME) Headaches /Migraines, Traumatic Brain Injury 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 Disorders: No Female 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 Disorders: 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 Sexually Transmitted Disease: Yes (HERPES) HIV/AIDS: No Genitourinary: No Gastrointestinal: Yes Gastroesophageal Reflux, Gall Bladder Disease Musculoskeletal: Yes (LEFT KNEE DISLOCATIONS) Endocrine: No HEENT: No Loss of Vision: Denies Hearing Impairment: Denies Cancer: No Psychosocial: No Integumentary: Yes Herpes Blood Disorders: No Adverse Reaction/Blood Tranf: No Family Medical History Diabetes mellitus 19 FATHER 19 MOTHER Hypertension 19 FATHER 19 MOTHER Myocardial infarction 19 FATHER 19 MOTHER Physical Exam Vital Signs - First Documented 09/26/18 15:50 Temp 99.3 Pulse 90 Resp 25 B/P (MAP) 153/101 (118) Pulse Ox 99 O2 Delivery Room Air Capillary Refill : Less Than 3 Seconds Height: 5'9.00" Weight: 230lbs. 4.0oz. 104.407002gj; 34.9 BMI Method:Stated General Appearance: WD/WN, mild distress HEENT: PERRL/EOMI, normal ENT inspection, TMs normal, pharynx normal Neck: normal inspection Respiratory: no respiratory distress, no accessory muscle use, wheezing, other (significantly delayed expiratory phase) Cardiovascular: regular rate, rhythm, no edema, no murmur Gastrointestinal: normal bowel sounds, non tender, soft Extremities: normal inspection, no pedal edema Neurologic/Psychiatric: ripsawyer II-XII nml as tested, no motor/sensory deficits, alert, normal mood/affect, oriented x 3 Skin: normal color, warm/dry Progress/Results/Core Measures Suspected Sepsis Recent Fever Within 48 Hours: No Infection Criteria Present: None New/Unexplained Altered Menta: No Sepsis Screen: No Definite Risk SIRS Temperature:99.3 Pulse: 90 Respiratory Rate: 25 Laboratory Tests 09/26/18 16:12: White Blood Count 13.3H Blood Pressure 153 /101 Mean: 118 Laboratory Tests 09/26/18 16:12: Creatinine 0.91, Platelet Count 362, Total Bilirubin 0.5 Results/Orders Lab Results Laboratory Tests Test 09/26/18 16:12 09/26/18 17:00 Range/Units White Blood Count 13.3 H 4.3-11.0 10^3/uL Red Blood Count 4.32 L 4.35-5.85 10^6/uL Hemoglobin 13.6 11.5-16.0 G/DL Hematocrit 41 35-52 % Mean Corpuscular Volume 94 80-99 FL Mean Corpuscular Hemoglobin 31 25-34 PG Mean Corpuscular Hemoglobin Concent 33 32-36 G/DL Red Cell Distribution Width 13.1 10.0-14.5 % Platelet Count 362 130-400 10^3/uL Mean Platelet Volume 10.2 7.4-10.4 FL Neutrophils (%) (Auto) 67 42-75 % Lymphocytes (%) (Auto) 24 12-44 % Monocytes (%) (Auto) 6 0-12 % Eosinophils (%) (Auto) 2 0-10 % Basophils (%) (Auto) 0 0-10 % Neutrophils # (Auto) 9.0 H 1.8-7.8 X 10^3 Lymphocytes # (Auto) 3.2 1.0-4.0 X 10^3 Monocytes # (Auto) 0.9 0.0-1.0 X 10^3 Eosinophils # (Auto) 0.2 0.0-0.3 10^3/uL Basophils # (Auto) 0.0 0.0-0.1 10^3/uL Sodium Level 142 135-145 MMOL/L Potassium Level 2.8 L 3.6-5.0 MMOL/L Chloride Level 107 98-107 MMOL/L Carbon Dioxide Level 22 21-32 MMOL/L Anion Gap 13 5-14 MMOL/L Blood Urea Nitrogen 12 7-18 MG/DL Creatinine 0.91 0.60-1.30 MG/DL Estimat Glomerular Filtration Rate > 60 BUN/Creatinine Ratio 13 Glucose Level 106 H 70-105 MG/DL Calcium Level 9.5 8.5-10.1 MG/DL Corrected Calcium 9.3 8.5-10.1 MG/DL Magnesium Level 2.1 1.8-2.4 MG/DL Total Bilirubin 0.5 0.1-1.0 MG/DL Aspartate Amino Transf (AST/SGOT) 17 5-34 U/L Alanine Aminotransferase (ALT/SGPT) 16 0-55 U/L Alkaline Phosphatase 48 40-136 U/L Total Protein 7.1 6.4-8.2 GM/DL Albumin 4.2 3.2-4.5 GM/DL Serum Test, Qualitative NEGATIVE NEGATIVE Group A Streptococcus Screen NEGATIVE NEGATIVE My Orders Orders - RIZWANA SOLITARIO MD Albuterol/Ipra Inhalation Soln (Duoneb I (09/26/18 16:00) Svn Small Volume Nebulizer (09/26/18 15:48) Albuterol/Ipra Inhalation Soln (Duoneb I (09/26/18 15:43) Chest Pa/Lat (2 View) (09/26/18 15:51) Rapid Strep A Screen (09/26/18 15:53) Lorazepam Injection (Ativan Injection) (09/26/18 16:15) Ed Iv/Invasive Line Start (09/26/18 16:02) Ns Iv 1000 Ml (Sodium Chloride 0.9%) (09/26/18 16:02) Cbc With Automated Diff (09/26/18 16:02) Comprehensive Metabolic Panel (09/26/18 16:02) Hcg,Qualitative Serum (09/26/18 16:02) Albuterol Pre-Mix Nebs (Rt) (Proventil (09/26/18 16:02) Albuterol/Ipra Inhalation Soln (Duoneb I (09/26/18 16:15) Svn Small Volume Nebulizer (09/26/18 16:02) Svn Small Volume Nebulizer (09/26/18 16:02) Lorazepam Injection (Ativan Injection) (09/26/18 15:57) Methylprednisolone Sod Succ (Solu-Medrol (09/26/18 16:30) Potassium Cl 10meq/50ml Ivpb (Kcl 10 Meq (09/26/18 17:15) Magnesium (09/26/18 17:21) Magnesium 1 Gm/100 Ml Ivpb (Magnesium Dozier (09/26/18 17:30) Ed Iv/Invasive Line Start (09/26/18 17:27) Ns Iv 1000 Ml (Sodium Chloride 0.9%) (09/26/18 17:27) Medications Given in ED Current Medications Medications Dose Ordered Sig/Herber Route Start Time Stop Time Status Last Admin Dose Admin Albuterol/ Ipratropium 3 ml ONCE ONCE INH 09/26/18 16:00 09/26/18 16:01 DC 09/26/18 16:08 3 ML Albuterol/ Ipratropium 3 ml ONCE ONCE INH 09/26/18 16:15 09/26/18 16:16 DC 09/26/18 15:50 3 ML Lorazepam 0.5 mg ONCE ONCE IVP 09/26/18 16:15 09/26/18 16:16 DC 09/26/18 16:08 0.5 MG Magnesium Sulfate/ Dextrose 100 ml @ 100 mls/hr ONCE ONCE IV 09/26/18 17:30 09/26/18 18:29 09/26/18 17:41 100 MLS/HR Methylprednisolone Sodium Succinate 125 mg ONCE ONCE IVP 09/26/18 16:30 09/26/18 16:31 DC 09/26/18 16:32 125 MG Potassium Chloride 50 ml @ 50 mls/hr ONCE ONCE IV 09/26/18 17:15 09/26/18 18:14 09/26/18 17:37 50 MLS/HR Sodium Chloride 1,000 ml @ 0 mls/hr Q0M ONCE IV 09/26/18 16:02 09/26/18 16:04 DC 09/26/18 16:32 1,000 MLS/HR Sodium Chloride 1,000 ml @ 150 mls/hr Q6H40M ONCE IV 09/26/18 17:27 09/27/18 00:06 09/26/18 17:38 150 MLS/HR Vital Signs/I&O 09/26/18 09/26/18 15:50 16:08 Temp 99.3 Pulse 90 Resp 25 B/P (MAP) 153/101 (118) Pulse Ox 99 99 O2 Delivery Room Air Room Air Capillary Refill : Less Than 3 Seconds Blood Pressure Mean: 118 Progress Note : Time: 17:30 Progress Note Patient was given a DuoNeb treatment but still quite wheezy and tight after that. She received an hour-long nebulizer treatment after the initial DuoNeb. She remained very tight and wheezy after that. Patient had hyperventilation and panic during the initial DuoNeb. She was treated with Ativan which resolved the panic. Case was discussed with Dr. Perry. Her condition is very guarded and we both agree she should be admitted to the ICU. Dr. Flores was consulted and recommended scheduled nebulizer treatments, scheduled Solu-Medrol, and magnesium sulfate 2 g. Because of her purulent sputum production we are also giving antibiotics even though the chest x-ray was negative. Patient was found to be quite hypokalemic with a potassium of 2.8. We are starting replacement with 10 mEq IV in the ER. I will then continue replacement with 40 mEq in her IV fluids in the ICU. Diagnostic Imaging Diagonstic Imaging: Xray Plain Films/CT/US/NM/MRI: chest Comments Chest x-ray viewed by me and report reviewed. See report below: NAME: MARY LOU [facility] REC#: [id number] PT STATUS: REG ER : 1985 PHYSICIAN: RIZWANA SOLITARIO MD ADMIT DATE: 09/26/18/ER Draft Date of Exam:09/26/18 CHEST PA/LAT (2 VIEW) INDICATION: Wheezing. COMPARISON: 03/20/2017. EXAMINATION: Frontal and lateral views of the chest were obtained. FINDINGS: Normal heart size and pulmonary vascularity. The lungs are clear. There are no signs of infiltrate, pleural effusions or pneumothoraces. The visualized osseous structures show no acute abnormalities. IMPRESSION: No acute process. No signs of infiltrates, effusions or pneumothoraces. Dictated on workstation # [id number] Dict: 09/26/18 1710 Trans: 09/26/18 1712 [facility] [phone] Interpreted by: GERTRUDE RANDALL MD Departure Communication (Admissions) Time/Spoke to Admitting Phy: 17:17 Dr. Chow Time/Spoke to Consulting Phy: 17:20 Dr. Flores Impression Primary Impression: Acute asthma exacerbation Qualified Codes: J45.901 - Unspecified asthma with (acute) exacerbation Additional Impressions: Hypokalemia Hyperventilation Disposition: ADMITTED INPATIENT Condition: Improved Admissions Decision to Admit Reason: Admit from ER (General) Decision to Admit/Date: Sep 26, 2018 Time/Decision to Admit Time: 17:15 Departure-Patient Inst. Referrals: MATT KENNEDY MD (PCP/Family) Primary Care Physician RIZWANA SOLITARIO MD Sep 26, 2018 17:17
[2018-09-26] MEDS ORDERED: MAGNESIUM 1 GM/100 ML IVPB 100 ML IV ONE (17:30)
[2018-09-26] MEDS ORDERED: ONDANSETRON 4 MG/2 ML (SDV) Z0FRAN ONE (18:17)
[2018-09-26] MEDS ORDERED: ONDANSETRON 4 MG/2 ML (SDV) Z0FRAN IVP ONE (18:30)
[2018-09-26] MEDS ORDERED: NS W/KCL 40 MEQ/L 1,000 ML IV ONE (18:42)
[2018-09-26] MEDS ORDERED: MAGNESIUM 1 GM/D5W 100 ML IVPB IV NR (18:52)
[2018-09-26] MEDS: POTASSIUM CHLORIDE INJ 40 MEQ in NS IV 1000 ML 1,000 ML IV SCH (18:56)
[2018-09-26] MEDS ORDERED: ONDANSETRON 4 MG/2 ML (SDV) Z0FRAN IV PRN (19:00)
[2018-09-26] MEDS ORDERED: AZITHROMYCIN 500 MG/NS 250 ML IVPB IV NR ×2 (19:00)
[2018-09-26] MEDS ORDERED: RT-ALBUTEROL SULF 2.5 MG/3 ML PRE-MIX VIAL INH PRN (19:00)
[2018-09-26] MEDS: cefTRIAXone 1,000 MG/SWFI 10 ML IV PUSH IV SCH ×2 (19:05)
[2018-09-26] MEDS: RT-ALBUTEROL/IPRATROPIUM 3 ML (DUONEB) VIAL IH SCH ×2 (19:49→22:57)
[2018-09-26] MEDS ORDERED: MONTELUKAST 10 MG (SINGULAIR) TAB PO SCH (21:00)
[2018-09-27] VITALS (11 sets, daily range): BP systolic 103–125; BP diastolic 55–78
[2018-09-27] MEDS: methylPREDNISolone 40 MG/ML (Solu-MEDROL) VIAL IV SCH ×4 (00:25→17:36)
[2018-09-27] MEDS: POTASSIUM CHLORIDE INJ 40 MEQ in NS IV 1000 ML 1,000 ML IV SCH ×4 (02:09→23:12)
[2018-09-27] MEDS: RT-ALBUTEROL/IPRATROPIUM 3 ML (DUONEB) VIAL IH SCH ×6 (02:15→22:23)
[2018-09-27 03:48] LABS: BASOPHILS % (AUTO) 0 % (0-10); EOSINOPHILS % (AUTO) 0 % (0-10); HEMATOCRIT 38 % (35-52); HEMOGLOBIN 12.5 G/DL (11.5-16.0); LYMPHOCYTES # (AUTO) 0.4 X 10^3 (1.0-4.0); LYMPHOCYTES % (AUTO) 4 % (12-44); MEAN CORPUSCULAR HEMOGLOBIN 31 PG (25-34); MEAN CORPUSCULAR HGB CONC 33 G/DL (32-36); MEAN CORPUSCULAR VOLUME 96 FL (80-99); MEAN PLATELET VOLUME 10.3 FL (7.4-10.4); MONOCYTES # (AUTO) 0.1 X 10^3 (0.0-1.0); MONOCYTES % (AUTO) 1 % (0-12); NEUTROPHILS # (AUTO) 10.9 X 10^3 (1.8-7.8); NEUTROPHILS % (AUTO) 96 % (42-75); PLATELET COUNT 323 10^3/uL (130-400); RED CELL DISTRIBUTION WIDTH 13.5 % (10.0-14.5); WHITE BLOOD COUNT 11.4 10^3/uL (4.3-11.0)
[2018-09-27 04:04] LABS: BAND NEUTROPHILS 1 %; BASOPHILS % (MANUAL) 0 %; EOSINOPHILS % (MANUAL) 0 %; LYMPHOCYTES % (MANUAL) 4 %; MONOCYTES % (MANUAL) 1 %; NEUTROPHILS % (MANUAL) 94 %
[2018-09-27 04:05] LABS: ROULEAUX SLIGHT
[2018-09-27 04:13] LABS: ALANINE AMINOTRANSFERASE 18 U/L (0-55); ALBUMIN 3.9 GM/DL (3.2-4.5); ALKALINE PHOSPHATASE 42 U/L (40-136); BILIRUBIN,TOTAL 0.3 MG/DL (0.1-1.0); BUN/CREATININE RATIO 11; CALCIUM 8.3 MG/DL (8.5-10.1); CARBON DIOXIDE 19 MMOL/L (21-32); CHLORIDE 111 MMOL/L (98-107); CREATININE SERUM 0.79 MG/DL (0.60-1.30); GFR ESTIMATED > 60; GLUCOSE 135 MG/DL (70-105); MAGNESIUM 2.4 MG/DL (1.8-2.4); PHOSPHORUS 2.4 MG/DL (2.3-4.7); POTASSIUM 4.6 MMOL/L (3.6-5.0); SODIUM 142 MMOL/L (135-145); TOTAL PROTEIN 6.5 GM/DL (6.4-8.2)
--- NOTE | 2018-09-27 05:26 | Pulmonary Consultation ---
History of Present Illness History of Present Illness Date of Consultation 09/27/18 05:23 Time Seen by Provider: 06:37 Date of Admission History of Present Illness 33yo with hx of asthma presented to ED secondary to worsening SOB, productive cough, and wheezing bilateral. Pt states she lost her INH during a recent move. Pt denies current tobacco use however she does live with smokers who smoke around her. Pt has had similar previous episodes. I am consulted for pulmonary management. Allergies and Home Medications Allergies Coded Allergies: clindamycin (Verified Allergy, Severe, 09/24/17) pantoprazole (Verified Allergy, Severe, 09/24/17) cefuroxime (Verified Allergy, Mild, Patient has received Rocephin in the past, 09/26/18) Home Medications Albuterol Sulfate 6.7 Gm Hfa.aer.ad, 2 PUFF INH Q4H PRN for SHORTNESS OF BREATH, (Reported) Budesonide/Formoterol Fumarate 10.2 Gm Hfa.aer.ad, 2 PUFF INH BID PRN for SHORTNESS OF BREATH, (Reported) Cephalexin 500 Mg Tablet, 500 MG PO BID Prescribed by: VINCE ARRIAZA on 04/05/171752 Cetirizine HCl 10 Mg Tablet, 10 MG PO DAILY, (Reported) Guanfacine HCl 2 Mg Tablet, 1 MG PO DAILY, (Reported) TAKES 1/2 (2MG) TABLET Ibuprofen 800 Mg Tablet, 800 MG PO Q8H PRN for PAIN-MILD, (Reported) Montelukast Sodium 10 Mg Tablet, 10 MG PO HS, (Reported) Multivitamin 1 Each Tablet, 1 TAB PO DAILY, (Reported) Naproxen 500 Mg Tablet, 500 MG PO BID Prescribed by: ALMAZ PICKENS on 09/24/172248 Omeprazole 40 Mg Capsule.dr, 40 MG PO DAILY, (Reported) Promethazine HCl 25 Mg Supp.rect, 1 SUPP.RECT RC QID PRN for NAUSEA/VOMITING-2ND LINE, (Reported) Sucralfate 1 Gm Tablet, 1 GM PO QID, (Reported) Tramadol HCl 50 Mg Tablet, 50 MG PO Q4H Prescribed by: ALMAZ PICKENS on 09/24/172248 Valacyclovir HCl 500 Mg Tablet, 500 MG PO DAILY, (Reported) Past Iuqtgxu-Oscqqo-Zafnud Hx Past Med/Social Hx: Reviewed Nursing Past Med/Soc Hx Patient Social History Alcohol Use: Denies Use Recreational Drug Use: No Smoking Status: Former Smoker Type Used: Cigarettes Former Smoker, Quit: Nov 04, 2008 Recent Foreign Travel: No Contact w/Someone Who Travel: No Recent Infectious Disease Expo: No Recent Hopitalizations: No Physical Abuse: No Sexual Abuse: No Immunizations Up To Date Tetanus Booster (TDap): Unknown PED Vaccines UTD: Yes Date of Pneumonia Vaccine: Aug 04, 2012 Date of Influenza Vaccine: Apr 10, 2012 Seasonal Allergies Seasonal Allergies: Yes Past Medical History Surgeries: Yes (LEFT KNEE SURGERY X 2) Abdominal, Gallbladder, Orthopedic Respiratory: Yes Asthma Currently Using CPAP: No Currently Using BIPAP: No Cardiac: No Neurological: Yes (TOURETTE'S SYNDROME) Headaches /Migraines, Traumatic Brain Injury 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 Disorders: No Female 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 Disorders: 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 Sexually Transmitted Disease: Yes (HERPES) HIV/AIDS: No Genitourinary: No Gastrointestinal: Yes Gastroesophageal Reflux, Gall Bladder Disease Musculoskeletal: Yes (LEFT KNEE DISLOCATIONS) Endocrine: No HEENT: No Loss of Vision: Denies Hearing Impairment: Denies Cancer: No Psychosocial: No Integumentary: Yes Herpes Blood Disorders: No Adverse Reaction/Blood Tranf: No Family Medical History Diabetes mellitus 19 FATHER 19 MOTHER Hypertension 19 FATHER 19 MOTHER Myocardial infarction 19 FATHER 19 MOTHER Review of Systems Time Seen by Provider: 06:37 Constitutional: Weakness, Malaise; No: Fever, Chills, Sweats, Other Eyes: No: Pain, Vision change, Conjunctivae inflammation, Eyelid inflammation, Other, Redness ENT: Nose congestion; No: Ear pain, Ear discharge, Nose pain, Nose discharge, Mouth pain, Mouth swelling, Throat pain, Throat swelling, Other Respiratory: Cough, Shortness of breath, SOB with excertion, Wheezing, Sputum; No: Hemoptysis Cardiovascular: Palpitations, Paroxysmal Noc. Dyspnea, Lt Headedness; No: Chest Pain, Orthopnea, Edema, Other Gastrointestinal: No: Nausea, Vomiting, Abdominal Pain, Diarrhea, Constipation, Melena, Hematochezia, Other Sepsis Event Evaluation Height, Weight, BMI Height: 5'9.00" Weight: 230lbs. 0.0oz. 104.960594jd; 34.0 BMI Method:Stated Exam Exam Vital Signs Date Time Temp Pulse Resp B/P (MAP) Pulse Ox O2 Delivery O2 Flow Rate FiO2 7/25/19 05:00 64 17 113/69 (84) 91 Room Air 09/27/18 04:00 98 Room Air 09/27/18 04:00 59 16 110/72 (85) 97 Room Air 09/27/18 04:00 97.8 09/27/18 03:00 59 13 116/75 (89) 100 Room Air 09/27/18 02:15 95 Room Air 09/27/18 02:00 64 16 107/55 (72) 96 Room Air 09/27/18 01:00 81 19 109/60 (76) 94 Room Air 09/27/18 01:00 81 09/27/18 00:00 97.2 09/27/18 00:00 109 23 113/63 (80) 97 Room Air 09/27/18 00:00 98 Room Air 09/26/18 23:00 91 18 116/78 (91) 97 Room Air 09/26/18 22:57 98 Room Air 09/26/18 22:00 86 11 121/83 (96) 96 Room Air 09/26/18 21:30 96 24 117/68 (84) 96 Room Air 09/26/18 21:00 96 24 116/67 (83) 96 Room Air 09/26/18 20:30 101 19 132/81 (98) 96 Room Air 09/26/18 20:00 93 18 124/63 (83) 98 Room Air 09/26/18 20:00 98 Room Air 09/26/18 19:45 100 17 129/71 (90) 98 Room Air 09/26/18 19:30 104 14 133/88 (103) 98 Room Air 09/26/18 19:27 98.2 101 17 124/66 (85) 95 Room Air 09/26/18 19:00 102 16 120/85 (97) 97 Room Air 09/26/18 19:00 98 Room Air 09/26/18 19:00 102 09/26/18 18:45 101 15 135/83 (100) 98 Room Air 09/26/18 18:30 99.3 102 20 121/74 (90) 99 Room Air 09/26/18 16:08 99 Room Air 09/26/18 15:50 99.3 90 25 153/101 (118) 99 Room Air I & O 09/27/18 06:59 Intake Total 2630 ml Output Total 1150 ml Balance 1480 ml Height & Weight Height: 5'9.00" Weight: 230lbs. 0.0oz. 104.574024kk; 34.0 BMI Method:Stated General Appearance: Anxious, Mild Distress HEENT: PERRL/EOMI, Normal ENT Inspection, Pharynx Normal Neck: Full Range of Motion, Non Tender, Supple Respiratory: Decreased Breath Sounds, Wheezing Cardiovascular: Regular Rate, Rhythm, No Edema, No Gallop Capillary Refill: Less Than 3 Seconds Gastrointestinal: normal bowel sounds, non tender, soft Extremity: Normal Capillary Refill, Normal Inspection, No Pedal Edema Neurologic/Psychiatric: Alert, Oriented x3 Skin: Normal Color, Warm/Dry Lymphatic: No Adenopathy Results Lab Laboratory Tests 09/26/18 16:12 09/27/18 03:20 Assessment/Plan Assessment/Plan Asthma AE -SVNS Q 4 -Continue Solumedrol - -IVF Allergic rhinitis -Start Claritin and Singulair Metabolic acidosis -Monitor -IVF Tobacco hx - quit in 2008 KELLIE CHAHAL DO Sep 27, 2018 05:26
[2018-09-27] MEDS ORDERED: POTASSIUM CL 10MEQ/50ML IVPB 50 ML IV SCH (06:00)
[2018-09-27] MEDS ORDERED: KCL 20 MEQ TAB (K-DUR) PO SCH (06:00)
[2018-09-27] MEDS ORDERED: MAGNESIUM 1 GM/100 ML IVPB 100 ML IV SCH (06:00)
--- NOTE | 2018-09-27 07:55 | Diagnostic Imaging Report ---
INDICATION: Dyspnea. COMPARISON: 09/26/2018. TECHNIQUE: Single frontal radiograph of the chest dated 09/27/2018. FINDINGS: The cardiac silhouette is within normal limits in size. No significant pulmonary vascular congestion. The lungs are clear of focal pulmonary opacity. No pleural effusion. No pneumothorax. No acute osseous abnormality. IMPRESSION: Similar appearing examination without acute cardiopulmonary abnormality. Dictated by: Dictated on workstation # [id number]
[2018-09-27] MEDS ORDERED: RT-ALBUINH INH (08:24)
[2018-09-27] MEDS ORDERED: GUAN1TAB21 PO (08:24)
[2018-09-27] MEDS ORDERED: NORG1TAB15 PO (08:24)
[2018-09-27] MEDS: LORATADINE (CLARITIN) 10 MG TAB PO SCH (08:29)
[2018-09-27] MEDS: cefTRIAXone 1,000 MG/SWFI 10 ML IV PUSH IV SCH ×2 (08:29)
[2018-09-27] MEDS: AZITHROMYCIN 250 MG TAB (ZITHROMAX) PO SCH (08:29)
--- NOTE | 2018-09-27 08:59 | NUR ---
Initial visit: pt said she quit smoking 10 years ago and 5 years ago began to struggle with asthma, for which she was hospitalized before. When I congratulated her on quitting smoking, she said her 14 year old inspired her to do so. When asked how, the pt said "when my daughter was 4 years old she said she was going to go to my before I could go to her wedding." The pt describes strong and supportive relationships with her daughter and mother. No advent affiliation at this time. The pt hold personal spiritual beliefs with Orthodox influence. She welcomed prayer.
--- NOTE | 2018-09-27 09:17 | NUR ---
PT TRANSFERRED TO ROOM 413 VIA W/ STAFF/PERSONAL BELONGINGS. REPORT GIVEN TO CARLOS OGDEN WHO ASSUMES CARE OF PT. NO QUESTIONS/CONCERNS VOICED.
--- NOTE | 2018-09-27 09:20 | NUR ---
TRANSFERRED FROM ICU PER W/C. ALERT AND COOPERATIVE. SKIN W/D. RESP. REGULAR. WHEEZES SCATTERED LUCHO. UP AD XU. R/A. DENIES SOA AT THIS TIME.
--- NOTE | 2018-09-27 10:05 | History & Physical-Hospitalist ---
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 She is placed in the ICU due to the significant severity of her asthma exacerbation. Dr. Flores saw her in consultation, maintained on IV steroids and likely will require a long hospital course, considering how severe her wheezing is. She is maintaining good saturations but she does have severe dyspnea on exertion and overall will need close monitoring for any need of intubation. She works at [employer] for 7.5 years and she lost her nebulizer machine when she moved recently.I will review her home medication and restart most. Source: patient Exam Limitations: no limitations Date Seen 09/27/18 Time Seen by a Provider: 10:15 Attending Physician Ayala Lauren DO PCP Linda Mallory MD Referring Physician Date of Admission Sep 26, 2018 at 17:17 Home Medications & Allergies Home Medications Reviewed patient Home Medication Reconciliation performed by pharmacy medication reconciliations system support technician and/or nursing. Patients Allergies have been reviewed. Allergies Allergies Coded Allergies clindamycin (Verified Allergy, Severe, 09/24/17) pantoprazole (Verified Allergy, Severe, 09/24/17) cefuroxime (Verified Allergy, Mild, Patient has received Rocephin in the past, 09/26/18) Past [id number] Hx Past Med/Social Hx: Reviewed Nursing Past Med/Soc Hx, Reviewed and Corrections made Patient Social History Marrital Status: single Employed/Student: employed Alcohol Use: Denies Use Recreational Drug Use: No Smoking Status: Former Smoker Former Smoker, Quit: Nov 04, 2008 Type Used: Cigarettes Recent Foreign Travel: No Contact w/other who traveled: No Recent Hopitalizations: No Recent Infectious Disease Expo: No Immunizations Up To Date Tetanus Booster (TDap): Unknown Pediatric: Yes Date of Pneumonia Vaccine: Aug 04, 2012 Date of Influenza Vaccine: Apr 10, 2012 Seasonal Allergies Seasonal Allergies: Yes Past Medical History Surgeries: Abdominal, Gallbladder, Orthopedic Respiratory: Asthma Currently Using CPAP: No Currently Using BIPAP: No Neurological: Headaches /Migraines, Traumatic Brain Injury 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: No Sexually Transmitted Disease: Yes (HERPES) HIV/AIDS: No Female 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 Disorders: Denies IUD Gastrointestinal: Gastroesophageal Reflux, Gall Bladder Disease Loss of Vision: Denies Hearing Impairment: Denies Skin/Integumentary: Herpes History of Blood Disorders: No Adverse Reaction to Blood [place]: No Family History Diabetes mellitus 19 FATHER 19 MOTHER Hypertension 19 FATHER 19 MOTHER Myocardial infarction 19 FATHER 19 MOTHER Review of Systems Constitutional: see HPI EENTM: no symptoms reported Respiratory: cough, dyspnea on exertion, short of breath, wheezing Cardiovascular: no symptoms reported Gastrointestinal: no symptoms reported Genitourinary: no symptoms reported Musculoskeletal: no symptoms reported Skin: no symptoms reported Psychiatric/Neurological: No Symptoms Reported All Other Systems Reviewed Negative Unless Noted: Yes Physical Exam Physical Exam Vital Signs Vital Signs - First Documented 09/26/18 15:50 Temp 99.3 Pulse 90 Resp 25 B/P (MAP) 153/101 (118) Pulse Ox 99 O2 Delivery Room Air Capillary Refill : Less Than 3 Seconds Height, Weight, BMI Height: 5'9.00" Weight: 230lbs. 1.0oz. 104.810573ad; 34.0 BMI Method:Stated General Appearance: WD/WN, Anxious, Chronically ill, Mild Distress Eyes: Right Eye Normal Inspection, Right Eye PERRL HEENT: PERRL/EOMI, Normal ENT Inspection, Pharynx Normal, Moist Mucous Membranes Neck: Full Range of Motion, Normal Inspection, Non Tender Respiratory: Chest Non Tender, No Respiratory Distress, Accessory Muscle Use, Crackles, Decreased Breath Sounds, Wheezing Cardiovascular: Regular Rate, Rhythm, No Edema, No Gallop, No JVD, No Murmur, Normal Peripheral Pulses Gastrointestinal: Normal Bowel Sounds, No Organomegaly, No Pulsatile Mass, Non Tender, Soft Back: Normal Inspection, No CVA Tenderness, No Vertebral Tenderness Extremity: Normal Capillary Refill, Normal Inspection, Normal Range of Motion, Non Tender, No Calf Tenderness, No Pedal Edema Neurologic/Psychiatric: Alert, Oriented x3, No Motor/Sensory Deficits, Normal Mood/Affect Skin: Normal Color, Warm/Dry Lymphatic: No Adenopathy Results Results/Procedures Labs Laboratory Tests 09/26/18 16:12 09/27/18 03:20 Patient resulted labs reviewed. Assessment/Plan Admission Diagnosis Assessment: Status asthmaticus Former smoker quit in 2008 Allergic rhinitis Plan: Home meds Nebulizers Oxygen IV steroids Appreciate Dr. Sandra consultation Admission Status: Inpatient Order (span 2 midnights) Reason for Inpatient Admission: Sevre asthma with status asthmaticus will require 5 days Diagnosis/Problems Diagnosis/Problems (1) Asthma with status asthmaticus Status: Acute (2) Hyperventilation Status: Acute Clinical Quality Measures DVT/VTE Risk/Contraindication: Risk Factor Score Per Nursin RFS Level Per Nursing on Admit: 3=High AYALA LAUREN DO Sep 27, 2018 10:05
[2018-09-27] MEDS ORDERED: MULT1TAB69 PO (10:26)
--- NOTE | 2018-09-27 10:27 | NUR ---
SPOKE WITH THE PATIENT ABOUT HER MEDICATIONS. WE WENT OVER THE EXT MED HX AND SHE VERIFIED HOW SHE TAKES THEM. SHE TAKES A MTV DAILY AND ZYRTEC DAILY OTC.
[2018-09-27] MEDS: MONTELUKAST 10 MG (SINGULAIR) TAB PO SCH (20:51)
[2018-09-27] MEDS ORDERED: IBUPROFEN 800 MG (MOTRIN) TAB PO PRN (21:00)
[2018-09-28 00:15] VITALS: BP 104/62
[2018-09-28] MEDS: RT-ALBUTEROL/IPRATROPIUM 3 ML (DUONEB) VIAL IH SCH ×6 (02:54→21:55)
[2018-09-28 03:51] LABS: BASOPHILS % (AUTO) 0 % (0-10); EOSINOPHILS % (AUTO) 0 % (0-10); HEMATOCRIT 38 % (35-52); HEMOGLOBIN 12.3 G/DL (11.5-16.0); LYMPHOCYTES % (AUTO) 4 % (12-44); MEAN CORPUSCULAR HEMOGLOBIN 32 PG (25-34); MEAN CORPUSCULAR HGB CONC 32 G/DL (32-36); MEAN CORPUSCULAR VOLUME 98 FL (80-99); MEAN PLATELET VOLUME 10.3 FL (7.4-10.4); MONOCYTES # (AUTO) 1.2 X 10^3 (0.0-1.0); MONOCYTES % (AUTO) 5 % (0-12); NEUTROPHILS # (AUTO) 23.5 X 10^3 (1.8-7.8); NEUTROPHILS % (AUTO) 92 % (42-75); PLATELET COUNT 318 10^3/uL (130-400); RED CELL DISTRIBUTION WIDTH 14.2 % (10.0-14.5); WHITE BLOOD COUNT 25.6 10^3/uL (4.3-11.0)
[2018-09-28 04:13] LABS: ALANINE AMINOTRANSFERASE 23 U/L (0-55); ALBUMIN 3.6 GM/DL (3.2-4.5); ALKALINE PHOSPHATASE 42 U/L (40-136); BILIRUBIN,TOTAL 0.4 MG/DL (0.1-1.0); BUN/CREATININE RATIO 15; CALCIUM 8.6 MG/DL (8.5-10.1); CARBON DIOXIDE 19 MMOL/L (21-32); CHLORIDE 114 MMOL/L (98-107); CREATININE SERUM 0.71 MG/DL (0.60-1.30); GFR ESTIMATED > 60; GLUCOSE 137 MG/DL (70-105); MAGNESIUM 2.4 MG/DL (1.8-2.4); PHOSPHORUS 2.4 MG/DL (2.3-4.7); POTASSIUM 4.8 MMOL/L (3.6-5.0); SODIUM 142 MMOL/L (135-145)
[2018-09-28] MEDS: POTASSIUM CHLORIDE INJ 40 MEQ in NS IV 1000 ML 1,000 ML IV SCH (05:24)
[2018-09-28] MEDS: methylPREDNISolone 40 MG/ML (Solu-MEDROL) VIAL IV SCH ×2 (05:24)
[2018-09-28 08:00] VITALS: BP 134/75
[2018-09-28] MEDS: AZITHROMYCIN 250 MG TAB (ZITHROMAX) PO SCH (08:30)
[2018-09-28] MEDS: MULTIVIT W/MINERALS TAB (THERAGRAN M) PO SCH (08:30)
[2018-09-28] MEDS: PANTOPRAZOLE 40 MG (PROTONIX) TAB PO SCH (08:30)
[2018-09-28] MEDS: LORATADINE (CLARITIN) 10 MG TAB PO SCH (08:30)
[2018-09-28] MEDS: MONTELUKAST 10 MG (SINGULAIR) TAB PO SCH ×2 (08:30→20:51)
[2018-09-28] MEDS: VALACYCLOVIR 500 MG TAB (VALTREX) PO SCH (08:30)
[2018-09-28] MEDS ORDERED: NON-FORMULARY MEDICATION 1 EA EA (Guanfacine HCl 1 MG) PO SCH (09:00)
[2018-09-28] MEDS ORDERED: NON-FORMULARY MEDICATION 1 EA EA (Cetirizine HCl 10 MG) PO SCH (09:00)
[2018-09-28] MEDS ORDERED: NON-FORMULARY MEDICATION 1 EA EA (Omeprazole 40 MG) PO SCH (09:00)
[2018-09-28] MEDS ORDERED: LORATADINE (CLARITIN) 10 MG TAB PO SCH (09:00)
[2018-09-28] MEDS ORDERED: NORGESTIMATE-ETHINYL ESTRADIOL 1 EACH TABLET PO SCH (09:00)
[2018-09-28] MEDS: cefTRIAXone 1,000 MG/SWFI 10 ML IV PUSH IV SCH ×2 (09:00)
--- NOTE | 2018-09-28 10:00 | Pulmonary Progress Note ---
Subjective Time Seen by a Provider: 10:00 Subjective/Events-last exam PT feels improved. NO complications noted. Sepsis Event Evaluation Height, Weight, BMI Height: 5'9.00" Weight: 244lbs. 2.0oz. 110.157078sa; 34.0 BMI Method:Stated Exam Exam Vital Signs Date Time Temp Pulse Resp B/P (MAP) Pulse Ox O2 Delivery O2 Flow Rate FiO2 09/28/18 08:00 97.5 70 20 134/75 (94) 95 Room Air 09/28/18 08:00 Room Air 09/28/18 07:36 96 Room Air 09/28/18 02:54 95 Room Air 09/28/18 00:15 97.6 56 16 104/62 (76) 95 Room Air 09/27/18 22:22 97 Room Air 09/27/18 21:55 Room Air 09/27/18 20:00 98.8 69 18 125/70 (88) 96 Room Air 09/27/18 19:21 96 Room Air 09/27/18 16:00 98.1 90 20 107/64 (78) 95 Room Air 09/27/18 15:21 95 Room Air 09/27/18 12:00 97.0 76 20 117/78 (91) 97 Room Air 09/27/18 10:08 98 Room Air I & O 09/28/18 07:00 Intake Total 3970 ml Output Total 1425 ml Balance 2545 ml Height & Weight Height: 5'9.00" Weight: 244lbs. 2.0oz. 110.900337mv; 34.0 BMI Method:Stated General Appearance: No Apparent Distress, WD/WN HEENT: PERRL/EOMI, Pharynx Normal Neck: Full Range of Motion, Normal Inspection, Supple Respiratory: No Accessory Muscle Use, No Respiratory Distress, Decreased Breath Sounds, Wheezing Cardiovascular: Regular Rate, Rhythm, No Edema, No Gallop Capillary Refill: Less Than 3 Seconds Gastrointestinal: normal bowel sounds, non tender, soft, no organomegaly Extremity: Normal Capillary Refill, Normal Inspection Neurologic/Psychiatric: Alert, Oriented x3 Skin: Normal Color, Warm/Dry Lymphatic: No Adenopathy Results Lab Laboratory Tests 09/26/18 16:12 09/27/18 03:20 09/28/18 03:40 Assessment/Plan Assessment/Plan Asthma AE -SVNS Q 4 -Solumedrol - change to prednisone taper -IVF Allergic rhinitis -Claritin and Singulair Metabolic acidosis -Monitor -IVF Tobacco hx - quit in 2008 KELLIE CHAHAL DO Sep 28, 2018 10:00
--- NOTE | 2018-09-28 10:25 | Progress Note - Hospitalist ---
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 She is placed in the ICU due to the significant severity of her asthma exacerbation. Dr. Flores saw her in consultation, maintained on IV steroids and likely will require a long hospital course, considering how severe her wheezing is. She is maintaining good saturations but she does have severe dyspnea on exertion and overall will need close monitoring for any need of intubation. She works at [employer] for 7.5 years and she lost her nebulizer machine when she moved recently.I will review her home medication and restart most. Subjective/Events-last exam Patient doing much better Still wheezing and still high risk for readmission due to the severity of her asthma when she gets an exacerbation Lungs sounds slightly improved but still bilateral wheezing and dyspnea on exertion Reviewed labs and meds Overall very slow recovery as expected Review of Systems Pulmonary: Dyspnea, Other (wheezing) Objective Exam Vital Signs Vital Signs Date Time Temp Pulse Resp B/P (MAP) Pulse Ox O2 Delivery O2 Flow Rate FiO2 09/28/18 11:17 95 Room Air 09/28/18 08:00 97.5 70 20 134/75 (94) Capillary Refill : Less Than 3 Seconds General Appearance: No Apparent Distress, WD/WN HEENT: PERRL/EOMI, Pharynx Normal Neck: Full Range of Motion, Normal Inspection, Supple Respiratory: No Accessory Muscle Use, No Respiratory Distress, Decreased Breath Sounds, Wheezing Cardiovascular: Regular Rate, Rhythm, No Edema, No Gallop Gastrointestinal: Normal Bowel Sounds, No Organomegaly, No Pulsatile Mass, Non Tender, Soft Back: Normal Inspection, No CVA Tenderness, No Vertebral Tenderness Extremity: Normal Capillary Refill, Normal Inspection Neurologic/Psychiatric: Alert, Oriented x3 Skin: Normal Color, Warm/Dry Lymphatic: No Adenopathy Results/Procedures Lab Laboratory Tests 09/28/18 03:40 Patient resulted labs reviewed. Assessment/Plan Assessment and Plan Assess & Plan/Chief Complaint Assessment: Status asthmaticus Former smoker quit in 2008 Allergic rhinitis Plan: Home meds Nebulizers Oxygen IV steroids Appreciate Dr. Flores consultation Diagnosis/Problems Diagnosis/Problems (1) Asthma with status asthmaticus Status: Acute (2) Hyperventilation Status: Acute Clinical Quality Measures DVT/VTE Risk/Contraindication: Risk Factor Score Per Nursin RFS Level Per Nursing on Admit: 3=High WEN LAUREN DO Sep 28, 2018 10:25
[2018-09-28] MEDS: predniSONE 10 MG TAB PO SCH (11:39)
[2018-09-28 16:01] VITALS: BP 122/74
[2018-09-29 00:34] VITALS: BP 121/75
[2018-09-29] MEDS: RT-ALBUTEROL/IPRATROPIUM 3 ML (DUONEB) VIAL IH SCH ×3 (02:41→10:51)
[2018-09-29] MEDS: predniSONE 10 MG TAB PO SCH (06:00)
[2018-09-29 06:27] LABS: BASOPHILS % (AUTO) 0 % (0-10); EOSINOPHILS % (AUTO) 0 % (0-10); HEMATOCRIT 37 % (35-52); HEMOGLOBIN 11.9 G/DL (11.5-16.0); LYMPHOCYTES % (AUTO) 11 % (12-44); MEAN CORPUSCULAR HEMOGLOBIN 32 PG (25-34); MEAN CORPUSCULAR HGB CONC 32 G/DL (32-36); MEAN CORPUSCULAR VOLUME 98 FL (80-99); MEAN PLATELET VOLUME 10.6 FL (7.4-10.4); MONOCYTES # (AUTO) 1.4 X 10^3 (0.0-1.0); MONOCYTES % (AUTO) 8 % (0-12); NEUTROPHILS % (AUTO) 81 % (42-75); PLATELET COUNT 298 10^3/uL (130-400); RED CELL DISTRIBUTION WIDTH 14.4 % (10.0-14.5); WHITE BLOOD COUNT 18.5 10^3/uL (4.3-11.0)
[2018-09-29 06:54] LABS: ALANINE AMINOTRANSFERASE 31 U/L (0-55); ALBUMIN 3.5 GM/DL (3.2-4.5); ALKALINE PHOSPHATASE 44 U/L (40-136); BILIRUBIN,TOTAL 0.3 MG/DL (0.1-1.0); BUN/CREATININE RATIO 21; CALCIUM 8.7 MG/DL (8.5-10.1); CARBON DIOXIDE 24 MMOL/L (21-32); CHLORIDE 109 MMOL/L (98-107); GFR ESTIMATED > 60; GLUCOSE 92 MG/DL (70-105); MAGNESIUM 2.2 MG/DL (1.8-2.4); PHOSPHORUS 2.5 MG/DL (2.3-4.7); POTASSIUM 4.2 MMOL/L (3.6-5.0); SODIUM 141 MMOL/L (135-145); TOTAL PROTEIN 5.6 GM/DL (6.4-8.2)
--- NOTE | 2018-09-29 07:48 | Pulmonary Progress Note ---
Subjective Time Seen by a Provider: 07:47 Subjective/Events-last exam Pt states she feels improved. Sepsis Event Evaluation Height, Weight, BMI Height: 5'9.00" Weight: 243lbs. 9.8oz. 110.685455hc; 34.0 BMI Method:Stated Exam Exam Vital Signs Date Time Temp Pulse Resp B/P (MAP) Pulse Ox O2 Delivery O2 Flow Rate FiO2 09/29/18 07:20 92 Room Air 09/29/18 02:41 95 Room Air 09/29/18 00:34 97.8 50 18 121/75 (90) 96 Room Air 09/28/18 21:55 96 Room Air 09/28/18 21:00 Room Air 09/28/18 16:01 97.9 83 18 122/74 (90) 96 Room Air 09/28/18 15:13 96 Room Air 09/28/18 11:17 95 Room Air 09/28/18 08:00 97.5 70 20 134/75 (94) 95 Room Air 09/28/18 08:00 Room Air I & O 09/29/18 07:00 Intake Total 2310 ml Output Total 1275 ml Balance 1035 ml Height & Weight Height: 5'9.00" Weight: 243lbs. 9.8oz. 110.179434zw; 34.0 BMI Method:Stated General Appearance: No Apparent Distress, WD/WN HEENT: PERRL/EOMI, Normal ENT Inspection, Pharynx Normal Neck: Full Range of Motion, Normal Inspection, Non Tender, Supple Respiratory: Chest Non Tender, No Accessory Muscle Use, No Respiratory Distress, Decreased Breath Sounds, Wheezing Cardiovascular: Regular Rate, Rhythm, No Edema, No Gallop Capillary Refill: Less Than 3 Seconds Gastrointestinal: normal bowel sounds, non tender, soft, no organomegaly Extremity: Normal Capillary Refill, Non Tender, No Pedal Edema Neurologic/Psychiatric: Alert, Oriented x3 Skin: Normal Color, Warm/Dry Lymphatic: No Adenopathy Results Lab Laboratory Tests 09/28/18 03:40 09/29/18 05:40 Assessment/Plan Assessment/Plan Asthma AE -SVNS Q 4 - prednisone taper Allergic rhinitis -Claritin and Singulair Metabolic acidosis -Monitor Tobacco hx - quit in 2008 KELLIE CHAHAL DO Sep 29, 2018 07:48
[2018-09-29 08:00] VITALS: BP 130/76
[2018-09-29] MEDS: AZITHROMYCIN 250 MG TAB (ZITHROMAX) PO SCH (10:00)
[2018-09-29] MEDS: MONTELUKAST 10 MG (SINGULAIR) TAB PO SCH (10:01)
[2018-09-29] MEDS: PANTOPRAZOLE 40 MG (PROTONIX) TAB PO SCH (10:01)
[2018-09-29] MEDS: MULTIVIT W/MINERALS TAB (THERAGRAN M) PO SCH (10:01)
[2018-09-29] MEDS: LORATADINE (CLARITIN) 10 MG TAB PO SCH (10:01)
[2018-09-29] MEDS: VALACYCLOVIR 500 MG TAB (VALTREX) PO SCH (10:01)
[2018-09-29] MEDS: cefTRIAXone 1,000 MG/SWFI 10 ML IV PUSH IV SCH ×2 (10:02)
[2018-09-29] MEDS ORDERED: PRD10T PO (10:33)
[2018-09-29] MEDS ORDERED: FLUT1DIS28 IH (10:33)
--- NOTE | 2018-09-29 11:20 | NUR ---
INSTRUCTIONS GIVEN AND VERBALIZED UNDERSTANDING. DC'D PER WC.
--- NOTE | 2018-09-29 12:44 | Discharge Summary ---
Diagnosis/Chief Complaint Date of Admission Sep 26, 2018 at 17:17 Date of Discharge Sep 29, 2018 at 11:20 Discharge Date: Sep 29, 2018 Admission Diagnosis Assessment: Status asthmaticus Former smoker quit in 2008 Allergic rhinitis Plan: Home meds Nebulizers Oxygen IV steroids Appreciate Dr. Flores consultation Discharge Diagnosis (1) Asthma with status asthmaticus Status: Acute (2) Hyperventilation Status: Acute Discharge Summary Discharge Physical Exam Allergies: Coded Allergies: clindamycin (Verified Allergy, Severe, 09/24/17) pantoprazole (Verified Allergy, Severe, 09/24/17) cefuroxime (Verified Allergy, Mild, Patient has received Rocephin in the past, 09/26/18) Vitals & I&Os Vital Signs Date Time Temp Pulse Resp B/P (MAP) Pulse Ox O2 Delivery O2 Flow Rate FiO2 09/29/18 10:51 98 Room Air 09/29/18 08:00 97.7 61 18 130/76 (94) General Appearance: No Apparent Distress Respiratory: Other (faint expiratory wheezing left greater than right good air movement chest otherwise clear no rales or rhonchi noted.) Cardiovascular: Regular Rate, Rhythm, No Edema, No Gallop, No JVD, No Murmur, Normal Peripheral Pulses Extremity: Normal Capillary Refill, Normal Inspection, Normal Range of Motion, Non Tender, No Calf Tenderness, No Pedal Edema Skin: Normal Color, Warm/Dry Hospital Course Was the Problem List Reviewed?: Yes 33yo with hx of asthma presented to ED secondary to worsening SOB, productive cough, and wheezing bilateral. Pt states she lost her INH during a recent move. Pt denies current tobacco use however she does live with smokers who smoke around her. Pt has had similar previous episodes.she did receive some antibiotics but had no purulent sputum production fever or symptoms to suggest infection. For this reason I'm not sending her home on antibiotics. She improved rather quickly on steroid therapy and bronchodilator therapy. She reports she is allergic to dogs and she's been living in an environment with friends were there is a dog. She had not been on anti-inflammatory therapy so we will resume Advair 100/50 one relation twice a day in addition to prednisone taper and rescue inhaler/pro-air that she has at home. She was advised to follow-up Dr. Kennedy within 1-2 weeks her primary care provider. Should add that chest x-ray was clear revealing no evidence for pneumonia. Labs (last 24 hrs) Laboratory Tests 09/29/18 05:40: White Blood Count 18.5H, Red Blood Count 3.74L, Hemoglobin 11.9, Hematocrit 37, Mean Corpuscular Volume 98, Mean Corpuscular Hemoglobin 32, Mean Corpuscular Hemoglobin Concent 32, Red Cell Distribution Width 14.4, Platelet Count 298, Mean Platelet Volume 10.6H, Neutrophils (%) (Auto) 81H, Lymphocytes (%) (Auto) 11L, Monocytes (%) (Auto) 8, Eosinophils (%) (Auto) 0, Basophils (%) (Auto) 0, N eutrophils # (Auto) 15.0H, Lymphocytes # (Auto) 2.0, Monocytes # (Auto) 1.4H, Eosinophils # (Auto) 0.0, Basophils # (Auto) 0.0, Sodium Level 141, Potassium Level 4.2, Chloride Level 109H, Carbon Dioxide Level 24, Anion Gap 8, Blood Urea Nitrogen 17, Creatinine 0.80, Estimat Glomerular Filtration Rate > 60, BUN/Creatinine Ratio 21, Glucose Level 92, Calcium Level 8.7, Corrected Calcium 9.1, Phosphorus Level 2.5, Magnesium Level 2.2, Total Bilirubin 0.3, Aspartate Amino Transf (AST/SGOT) 17, Alanine Aminotransferase (ALT/SGPT) 31, Alkaline Phosphatase 44, Total Protein 5.6L, Albumin 3.5 Microbiology 09/26/18 Gram Stain - Final, Complete 09/26/18 Sputum Culture - Final, Complete Usual upper respiratory carla Patient resulted labs reviewed. Pending Labs Laboratory Tests 09/29/18 05:40: White Blood Count 18.5, Red Blood Count 3.74, Hemoglobin 11.9, Hematocrit 37, Mean Corpuscular Volume 98, Mean Corpuscular Hemoglobin 32, Mean Corpuscular Hemoglobin Concent 32, Red Cell Distribution Width 14.4, Platelet Count 298, Mean Platelet Volume 10.6, Neutrophils (%) (Auto) 81, Lymphocytes (%) (Auto) 11, Monocytes (%) (Auto) 8, Eosinophils (%) (Auto) 0, Basophils (%) (Auto) 0, Neutrophils # (Auto) 15.0, Lymphocytes # (Auto) 2.0, Monocytes # (Auto) 1.4, Eosinophils # (Auto) 0.0, Basophils # (Auto) 0.0, Sodium Level 141, Potassium Level 4.2, Chloride Level 109, Carbon Dioxide Level 24, Anion Gap 8, Blood Urea Nitrogen 17, Creatinine 0.80, Estimat Glomerular Filtration Rate > 60, BUN/Creatinine Ratio 21, Glucose Level 92, Calcium Level 8.7, Corrected Calcium 9.1, Phosphorus Level 2.5, Magnesium Level 2.2, Total Bilirubin 0.3, Aspartate Amino Transf (AST/SGOT) 17, Alanine Aminotransferase (ALT/SGPT) 31, Alkaline Phosphatase 44, Total Protein 5.6, Albumin 3.5 Imaging: Reviewed Imaging Report Discussion & Recommendations Discharge Planning: <30 minutes discharge planning Discharge Home Medications: Active Scripts Active Advair 100-50 Diskus (Fluticasone/Salmeterol) 1 Each Blst.w.dev 1 Each IH BID 30 Days Prednisone 10 Mg Tab 40 Mg PO DAILY@0700 10 Days 40mg for 5 days with breaakfast then 20mg for 5 days Reported Multivitamins (Multivitamin) 1 Each Tablet 1 Tab PO DAILY Proair Hfa (Albuterol Sulfate) 1 Puff Puff 2 Puff INH Q4H PRN Guanfacine HCl 1 Mg Tablet 1 Mg PO DAILY Tri-Sprintec Tablet (Norgestimate-Ethinyl Estradiol) 1 Each Tablet 1 Tab PO TONY LY Ibuprofen 800 Mg Tablet 800 Mg PO Q8H PRN Omeprazole 40 Mg Capsule.dr 40 Mg PO DAILY Valacyclovir (Valacyclovir HCl) 500 Mg Tablet 500 Mg PO DAILY Cetirizine HCl 10 Mg Tablet 10 Mg PO DAILY Montelukast Sodium 10 Mg Tablet 10 Mg PO DAILY Instructions to patient/family Please see electronic discharge instructions given to patient. Clinical Quality Measures DVT/VTE Risk/Contraindication: Risk Factor Score Per Nursin RFS Level Per Nursing on Admit: 3=High Copy Copies To 1: MATT KENNEDY MD, MARK D MD Sep 29, 2018 12:44
== END 2018-09-29 11:20 | disposition home or self-care (01) | DRG 202 ==
LOC: EDUNIT# 15:42 → ER 15:43 → ICU 17:17 → 4TH 09-27 09:17
PROVIDERS: ADMIT Internal Medicine; ATTEND Internal Medicine
DX: J45.902 Unspecified asthma with status asthmaticus (principal); R06.4 Hyperventilation; E87.2 Acidosis; E87.6 Hypokalemia; J02.9 Acute pharyngitis, unspecified; K21.9 Gastro-esophageal reflux disease without esophagitis; F95.2 Tourette's disorder; G43.909 Migraine, unspecified, not intractable, without status migrainosus; A60.9 Anogenital herpesviral infection, unspecified; Z87.891 Personal history of nicotine dependence; Z87.820 Personal history of traumatic brain injury; Z77.22 Contact with and (suspected) exposure to environmental tobacco smoke (acute) (chronic)
CPT/HCPCS: 36415; 71045; 71046; 80053; 83735; 84100; 84703; 85007; 85025; 85027; 87070; 87081; 87205; 87430; 94640; 94760; 96361; 96365; 96367; 96368; 96375

== ENCOUNTER → 2019-01-25 | Outpatient (CLI) | payer BC ==
[~2019-01-25] MED LIST changes: +FLUT1DIS28 IH; +GUAN1TAB21 PO; +MULT1TAB69 PO; +NORG1TAB15 PO
--- NOTE | 2019-01-25 12:45 | Diagnostic Imaging Report ---
INDICATION: Right shoulder pain for 1 year, increasing in severity. TIME OF EXAM: 11:56 AM 3 views right shoulder were obtained. FINDINGS: Glenohumeral and acromioclavicular alignment are normal. Acromiohumeral space is normal. No fracture or dislocation is seen. IMPRESSION: No acute bony abnormality is detected. Dictated by: Dictated on workstation # [id number]
== END ==
LOC: RAD 11:41
PROVIDERS: ATTEND Nurse Practitioner Family
DX: M25.511 Pain in right shoulder (principal)
CPT/HCPCS: 73030

== ENCOUNTER 2019-03-26 14:58 | Outpatient (RCR) | payer BC ==
[~2019-03-26 14:58] MED LIST changes: +OMEP40CA27 PO; -OMEP40CA36 PO
== END 2019-04-01 15:30 | disposition home or self-care (01) ==
PROVIDERS: ATTEND Orthopaedic Surgery
DX: M25.511 Pain in right shoulder (principal)

== ENCOUNTER 2019-05-02 23:56 | Emergency (ER) | payer BC ==
[~2019-05-02] VITALS: Ht 175 cm; Wt 104.0 kg
[~2019-05-02 23:56] MED LIST changes: -MONT10TA24 PO; +MONT10TA26 PO; -VALA500T PO; +VALA500T7 PO
[2019-05-03] MEDS ORDERED: ONDANSETRON 4 MG/2 ML (SDV) Z0FRAN ONE (00:06)
[2019-05-03] MEDS ORDERED: NS IV 1000 ML 1,000 ML IV SCH (00:08)
[2019-05-03] MEDS ORDERED: LIDOCAINE 2% VISCOUS 15 ML UDC PO ONE (00:15)
[2019-05-03] MEDS ORDERED: ANTACID SUSP 30 ML UDC (MYLANTA) PO ONE (00:15)
[2019-05-03] MEDS ORDERED: ONDANSETRON 4 MG/2 ML (SDV) Z0FRAN IVP ONE (00:15)
[2019-05-03] MEDS ORDERED: FAMOTIDINE 20MG/2ML IV (PEPCID) IVP ONE (00:15)
[2019-05-03] MEDS ORDERED: PROMETHAZINE INJ 25 MG/ML (PHENERGAN) AMP IVP ONE (00:30)
[2019-05-03 00:31] LABS: BASOPHILS % (AUTO) 0 % (0-10); EOSINOPHILS # (AUTO) 0.3 10^3/uL (0.0-0.3); EOSINOPHILS % (AUTO) 3 % (0-10); HEMATOCRIT 43 % (35-52); HEMOGLOBIN 14.7 G/DL (11.5-16.0); LYMPHOCYTES % (AUTO) 36 % (12-44); MEAN CORPUSCULAR HEMOGLOBIN 32 PG (25-34); MEAN CORPUSCULAR HGB CONC 34 G/DL (32-36); MEAN CORPUSCULAR VOLUME 94 FL (80-99); MEAN PLATELET VOLUME 10.3 FL (7.4-10.4); MONOCYTES # (AUTO) 1.2 X 10^3 (0.0-1.0); MONOCYTES % (AUTO) 11 % (0-12); NEUTROPHILS # (AUTO) 5.5 X 10^3 (1.8-7.8); NEUTROPHILS % (AUTO) 50 % (42-75); PLATELET COUNT 335 10^3/uL (130-400); WHITE BLOOD COUNT 11.1 10^3/uL (4.3-11.0)
[2019-05-03 00:52] LABS: ALANINE AMINOTRANSFERASE 20 U/L (0-55); ALBUMIN 4.7 GM/DL (3.2-4.5); ALKALINE PHOSPHATASE 69 U/L (40-136); BILIRUBIN,TOTAL 0.8 MG/DL (0.1-1.0); BUN/CREATININE RATIO 16; CALCIUM 9.6 MG/DL (8.5-10.1); CARBON DIOXIDE 25 MMOL/L (21-32); CHLORIDE 104 MMOL/L (98-107); CREATININE SERUM 0.86 MG/DL (0.60-1.30); GFR ESTIMATED > 60; GLUCOSE 94 MG/DL (70-105); POTASSIUM 3.5 MMOL/L (3.6-5.0); SODIUM 140 MMOL/L (135-145); TOTAL PROTEIN 7.4 GM/DL (6.4-8.2)
[2019-05-03 00:53] LABS: LIPASE 34 U/L (8-78)
[2019-05-03 00:57] LABS: PROTHROMBIN TIME PATIENT 13.7 SEC (12.2-14.7)
--- NOTE | 2019-05-03 00:59 | ED Chest Pain ---
General Chief Complaint: Chest Pain Stated Complaint: POSS CP,NAUSEA Nursing Triage Note: has had multiple episodes of vomiting today (4) and states now having pain in left substernal chest. denies shortness of breath, alert and oriented x4. Nursing Sepsis Screen: No Definite Risk Source: patient, old records Exam Limitations: no limitations History of Present Illness Date Seen by Provider: May 03, 2019 Time Seen by Provider: 00:02 Initial Comments This 33-year-old woman presents to the emergency room with complaints of chest pain that started after vomiting today. Symptoms started with nausea yesterday. She reported having a fluttering feeling in her chest and then vomiting 4 since 17:00. She then developed chest pain. She denies cough, fever, diarrhea, constipation, or changes to her urine. She has noted decreased urine output has also had decreased oral intake. She denies as she has an IUD. She a dmits to marijuana use a couple weeks ago but denies any recent drug or alcohol use. Dr. Mallory is her primary care provider. She reports having had previous problems with nausea and vomiting but not to this extent. After initial assessment she starts dry heaving. She has history of acid reflux. She has a surgically absent gallbladder. Allergies and Home Medications Allergies Coded Allergies: clindamycin (Verified Allergy, Severe, 09/24/17) pantoprazole (Verified Allergy, Severe, 09/24/17) cefuroxime (Verified Allergy, Mild, Patient has received Rocephin in the past, 09/26/18) Home Medications Albuterol Sulfate 1 Puff Puff, 2 PUFF INH Q4H PRN for SHORTNESS OF BREATH, (Reported) Cetirizine HCl 10 Mg Tablet, 10 MG PO DAILY, (Reported) Fluticasone/Salmeterol 1 Each Blst.w.dev, 1 EACH IH BID Prescribed by: LUZ ELENA DOWNING on 09/29/18 1033 Guanfacine HCl 1 Mg Tablet, 1 MG PO DAILY, (Reported) Ibuprofen 800 Mg Tablet, 800 MG PO Q8H PRN for PAIN-MILD, (Reported) Montelukast Sodium 10 Mg Tablet, 10 MG PO DAILY, (Reported) Multivitamin 1 Each Tablet, 1 TAB PO DAILY, (Reported) Norgestimate-Ethinyl Estradiol 1 Each Tablet, 1 TAB PO DAILY, (Reported) Omeprazole 40 Mg Capsule.dr, 40 MG PO DAILY, (Reported) Ondansetron 4 Mg Tab.rapdis, 4 MG SL Q4H PRN for NAUSEA/VOMITING Prescribed by: RIZWANA MARSHALL on 05/03/19 0322 Prednisone 10 Mg Tab, 40 MG PO DAILY@0700 40mg for 5 days with breaakfast then 20mg for 5 days Prescribed by: LUZ ELENA DOWNING on 09/29/18 1033 Promethazine HCl 25 Mg Tablet, 25 MG PO Q6H PRN for NAUSEA/VOMITING Prescribed by: RIZWANA MARSHALL on 05/03/19 0322 Valacyclovir HCl 500 Mg Tablet, 500 MG PO DAILY, (Reported) Patient Home Medication List Home Medication List Reviewed: Yes Review of Systems Review of Systems Constitutional: no symptoms reported EENTM: No Symptoms Reported Respiratory: No Symptoms Reported Cardiovascular: See HPI Gastrointestinal: See HPI Genitourinary: No Symptoms Reported Musculoskeletal: no symptoms reported Skin: no symptoms reported Psychiatric/Neurological: See HPI Endocrine: No Symptoms Reported Hematologic/Lymphatic: No Symptoms Reported Past Pcxfryw-Ghimka-Iwxokx Hx Past Med/Social Hx: Reviewed Nursing Past Med/Soc Hx Patient Social History Alcohol Use: Denies Use Recreational Drug Use: No Type Used: Cigarettes Former Smoker, Quit: Nov 04, 2008 Recent Foreign Travel: No Contact w/Someone Who Travel: No Recent Infectious Disease Expo: No Recent Hopitalizations: No Physical Abuse: No Sexual Abuse: No Mistreated: No Fear: No Immunizations Up To Date Tetanus Booster (TDap): Unknown PED Vaccines UTD: Yes Date of Pneumonia Vaccine: Aug 04, 2012 Date of Influenza Vaccine: Apr 10, 2012 Seasonal Allergies Seasonal Allergies: Yes Past Medical History Surgeries: Yes (LEFT KNEE SURGERY X 2) Abdominal, Gallbladder, Orthopedic Respiratory: Yes Asthma Currently Using CPAP: No Currently Using BIPAP: No Cardiac: No Neurological: Yes (TOURETTE'S SYNDROME) Headaches /Migraines, Traumatic Brain Injury : No 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 Disorders: No 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 Sexually Transmitted Disease: Yes (HERPES) HIV/AIDS: No Genitourinary: No Gastrointestinal: Yes Gastroesophageal Reflux, Gall Bladder Disease Musculoskeletal: Yes (LEFT KNEE DISLOCATIONS) Endocrine: No HEENT: No Loss of Vision: Denies Hearing Impairment: Denies Cancer: No Psychosocial: No Integumentary: Yes Herpes Blood Disorders: No Adverse Reaction/Blood Tranf: No Family Medical History Reviewed Nursing Family Hx Diabetes mellitus 19 FATHER 19 MOTHER Hypertension 19 FATHER 19 MOTHER Myocardial infarction 19 FATHER 19 MOTHER Physical Exam Vital Signs Vital Signs - First Documented 05/03/19 00:02 Temp 36.6 Pulse 86 Resp 18 B/P (MAP) 155/83 (107) Pulse Ox 97 O2 Delivery Room Air Capillary Refill : Less Than 3 Seconds Height, Weight, BMI Height: 5'9.00" Weight: 243lbs. 9.8oz. [id number]; 33.00 BMI Method:Stated General Appearance: WD/WN, Mild Distress (from dry heaving) HEENT: PERRL/EOMI, TMs Normal, Normal ENT Inspection, Pharynx Normal Neck: Normal Inspection Respiratory: Lungs Clear, Normal Breath Sounds, No Accessory Muscle Use, No Respiratory Distress Cardiovascular: Regular Rate, Rhythm, No Edema, No Murmur, Normal Peripheral Pulses Gastrointestinal: Normal Bowel Sounds, Soft, Tenderness (epigastrium) Extremity: Normal Inspection, No Pedal Edema Neurologic/Psychiatric: Alert, Oriented x3, No Motor/Sensory Deficits, Normal Mood/Affect, aromatherapist II-XII Norm as Tested Skin: Normal Color, Warm/Dry Progress/Results/Core Measures Results/Orders Lab Results Laboratory Tests Test 05/03/19 00:07 05/03/19 01:42 Range/Units White Blood Count 11.1 H 4.3-11.0 10^3/uL Red Blood Count 4.57 4.35-5.85 10^6/uL Hemoglobin 14.7 11.5-16.0 G/DL Hematocrit 43 35-52 % Mean Corpuscular Volume 94 80-99 FL Mean Corpuscular Hemoglobin 32 25-34 PG Mean Corpuscular Hemoglobin Concent 34 32-36 G/DL Red Cell Distribution Width 13.0 10.0-14.5 % Platelet Count 335 130-400 10^3/uL Mean Platelet Volume 10.3 7.4-10.4 FL Neutrophils (%) (Auto) 50 42-75 % Lymphocytes (%) (Auto) 36 12-44 % Monocytes (%) (Auto) 11 0-12 % Eosinophils (%) (Auto) 3 0-10 % Basophils (%) (Auto) 0 0-10 % Neutrophils # (Auto) 5.5 1.8-7.8 X 10^3 Lymphocytes # (Auto) 4.0 1.0-4.0 X 10^3 Monocytes # (Auto) 1.2 H 0.0-1.0 X 10^3 Eosinophils # (Auto) 0.3 0.0-0.3 10^3/uL Basophils # (Auto) 0.0 0.0-0.1 10^3/uL Prothrombin Time 13.7 12.2-14.7 SEC INR Comment 1.0 0.8-1.4 Activated Partial Thromboplast Time 30 24-35 SEC Sodium Level 140 135-145 MMOL/L Potassium Level 3.5 L 3.6-5.0 MMOL/L Chloride Level 104 98-107 MMOL/L Carbon Dioxide Level 25 21-32 MMOL/L Anion Gap 11 5-14 MMOL/L Blood Urea Nitrogen 14 7-18 MG/DL Creatinine 0.86 0.60-1.30 MG/DL Estimat Glomerular Filtration Rate > 60 BUN/Creatinine Ratio 16 Glucose Level 94 70-105 MG/DL Calcium Level 9.6 8.5-10.1 MG/DL Corrected Calcium 8.5-10.1 MG/DL Magnesium Level 2.0 1.6-2.4 MG/DL Total Bilirubin 0.8 0.1-1.0 MG/DL Aspartate Amino Transf (AST/SGOT) 17 5-34 U/L Alanine Aminotransferase (ALT/SGPT) 20 0-55 U/L Alkaline Phosphatase 69 40-136 U/L Myoglobin 51.8 10.0-92.0 NG/ML Troponin I < 0.028 <0.028 NG/ML Total Protein 7.4 6.4-8.2 GM/DL Albumin 4.7 H 3.2-4.5 GM/DL Lipase 34 8-78 U/L Serum Test, Qualitative NEGATIVE NEGATIVE Urine Color YELLOW Urine Clarity CLEAR Urine pH 5.5 5-9 Urine Specific [place] <=1.005 1.016-1.022 Urine Protein NEGATIVE NEGATIVE Urine Glucose (UA) NEGATIVE NEGATIVE Urine Ketones NEGATIVE NEGATIVE Urine Nitrite NEGATIVE NEGATIVE Urine Bilirubin NEGATIVE NEGATIVE Urine Urobilinogen 0.2 < = 1.0 MG/DL Urine Leukocyte Esterase NEGATIVE NEGATIVE Urine RBC (Auto) NEGATIVE NEGATIVE Urine RBC NONE /HPF Urine WBC NONE /HPF Urine Crystals PRESENT H /LPF Urine Amorphous Sediment FEW [place] URATES H /LPF Urine Bacteria TRACE /HPF Urine Casts NONE /LPF Urine Mucus NEGATIVE /LPF Urine Culture Indicated NO Urine Opiates Screen NEGATIVE NEGATIVE Urine Oxycodone Screen NEGATIVE NEGATIVE Urine Methadone Screen NEGATIVE NEGATIVE Urine Propoxyphene Screen NEGATIVE NEGATIVE Urine Barbiturates Screen NEGATIVE NEGATIVE Ur Tricyclic Antidepressants Screen NEGATIVE NEGATIVE Urine Phencyclidine Screen NEGATIVE NEGATIVE Urine Amphetamines Screen NEGATIVE NEGATIVE Urine Methamphetamines Screen NEGATIVE NEGATIVE Urine Benzodiazepines Screen NEGATIVE NEGATIVE Urine Cocaine Screen NEGATIVE NEGATIVE Urine Cannabinoids Screen POSITIVE H NEGATIVE My Orders Orders - RIZWANA SOLITARIO MD Cbc With Automated Diff (05/03/19 00:08) Magnesium (05/03/19 00:08) Chest 1 View, Ap/Pa Only (05/03/19 00:08) Ekg Tracing (05/03/19 00:08) Comprehensive Metabolic Panel (05/03/19 00:08) Myoglobin Serum (05/03/19 00:08) Protime With Inr (05/03/19 00:08) Partial Thromboplastin Time (05/03/19 00:08) O2 (05/03/19 00:08) Monitor-Rhythm Ecg Trace Only (05/03/19 00:08) Lipid Panel (05/04/19 06:00) Ed Iv/Invasive Line Start (05/03/19 00:08) Troponin I (05/03/19 00:08) Hcg,Qualitative Serum (05/03/19 00:08) Lipase (05/03/19 00:08) Ua Culture If Indicated (05/03/19 00:08) Ns Iv 1000 Ml (Sodium Chloride 0.9%) (05/03/19 00:08) Ondansetron Injection (Zofran Injectio (05/03/19 00:15) Famotidine Injection (Pepcid Injection) (05/03/19 00:15) Lidocaine 2% Viscous 15 Ml (Xylocaine Vi (05/03/19 00:15) Antacid Suspension (Mylanta Suspension (05/03/19 00:15) Ondansetron Injection (Zofran Injectio (05/03/19 00:06) Promethazine Injection (Phenergan Injec (05/03/19 00:30) Drug Screen Stat (Urine) (05/03/19 00:44) Diphenhydramine Injection (Benadryl Inje (05/03/19 01:00) Ekg Tracing (05/03/19 00:54) Lorazepam Injection (Ativan Injection) (05/03/19 01:15) Medications Given in ED Current Medications Medications Dose Ordered Sig/Herber Route Start Time Stop Time Status Last Admin Dose Admin Diphenhydramine HCl 25 mg ONCE ONCE IVP 05/03/19 01:00 05/03/19 01:01 DC 05/03/19 01:02 25 MG Famotidine 20 mg ONCE ONCE IVP 05/03/19 00:15 05/03/19 00:16 DC 05/03/19 00:27 20 MG Lorazepam 0.5 mg ONCE ONCE IVP 05/03/19 01:15 05/03/19 01:16 DC 05/03/19 01:07 0.5 MG Ondansetron HCl 8 mg ONCE ONCE IVP 05/03/19 00:15 05/03/19 00:16 DC 05/03/19 00:12 8 MG Promethazine HCl 25 mg ONCE ONCE IVP 05/03/19 00:30 05/03/19 00:31 DC 05/03/19 00:26 25 MG Vital Signs/I&O 05/03/19 05/03/19 00:02 00:02 Temp 36.6 Pulse 86 Resp 18 B/P (MAP) 155/83 (107) Pulse Ox 97 O2 Delivery Room Air Blood Pressure Mean: 107 Progress Progress Note #1: Time: 01:12 Progress Note Labs have been unremarkable. Urinalysis is pending. Patient was initially treated with IV fluids, Zofran, and Pepcid. She continued to have dry heaving. Phenergan was then added to her IV fluids. She developed some jaw tremoring and was given Benadryl. She still had refractory dry heaving. Ativan 0.5 mg IV was given to help further treat the nausea and dry heaving. This seemed to be quite helpful. Progress Note #2: Time: 03:30 Progress Note Patient rested for a while and was able to tolerate ice chips without difficulty. She demonstrated ability to walk safely and was alert and oriented prior to discharge. EKG #1: EKG Time: 00:10 Comment Sinus arrhythmia with artifact. No ST elevation or depression. No axis deviation. EKG #2: EKG Time: 00:52 Rate: 91 Rhythm: Normal Sinus ECG Impression: Normal Comment Normal sinus rhythm with no ST elevation or depression. No abnormal intervals or axis deviation. Diagnostic Imaging Diagonstic Imaging: Xray Plain Films/CT/US/NM/MRI: chest Comments Chest x-ray viewed by me and report not yet available. No acute abnormality appreciated. Departure Impression Primary Impression: Nausea and vomiting Qualified Codes: R11.2 - Nausea with vomiting, unspecified Additional Impressions: Atypical chest pain Epigastric pain Disposition: HOME, SELF-CARE Condition: Improved Departure-Patient Inst. Decision time for Depature: 03:19 Referrals: MATT MALLORY MD (PCP) Primary Care Physician Patient Instructions: Nausea and Vomiting, Adult (DC) Add. Discharge Instructions: Sip on noncarbonated clear liquids. Gradually increase intake. After 24 hours advance diet with small quantities of bland solid food as tolerated. Take an ecfw-lgd-wvvrxrp antacid such as Pepcid (famotidine) 20 mg twice daily or omeprazole 20 mg twice daily for the next 1-2 weeks. Avoid use of marijuana as it can worsen symptoms of nausea and vomiting. Often the nausea and vomiting associated with marijuana can be delayed after usage. Use the dissolvable Zofran (ondansetron) tablets for primary control of nausea and vomiting. Add Phenergan (promethazine) for nausea and vomiting not controlled by Zofran. If Phenergan causes any twitching or agitation, take Benadryl (diphenhydramine) 25 mg along with it. Return to the emergency room if you have worsening symptoms. All discharge instructions reviewed with patient and/or family. Voiced understa nding. Scripts Promethazine HCl (Promethazine Tablet) 25 Mg Tablet 25 MG PO Q6H PRN for NAUSEA/VOMITING, #10 TAB Prov: RIZWANA SOLITARIO MD 05/03/19 Ondansetron (Ondansetron Odt) 4 Mg Tab.rapdis 4 MG SL Q4H PRN for NAUSEA/VOMITING, #10 TAB Prov: RIZWANA SOLITARIO MD 05/03/19 RIZWANA SOLITARIO MD May 03, 2019 00:59
[2019-05-03] MEDS ORDERED: diphenhydrAMINE 50 MG/ML INJ (BENADRYL) IVP ONE (01:00)
[2019-05-03] MEDS ORDERED: LORazepam INJ 2 MG/ML (ATIVAN) VIAL IVP ONE (01:15)
--- NOTE | 2019-05-03 01:30 | NUR ---
AFTER MULTIPLE INTERVENTIONS FOR INTRACTABLE NAUSEA PATIENT HAS RELIEF FOR HER VOMITING. RESTING QUIETLY IN ROOM WITH CALL LIGHT WITHIN REACH.
[2019-05-03 01:52] LABS: BILIRUBIN,URINE NEGATIVE (NEGATIVE); CLARITY,URINE CLEAR; COLOR,URINE YELLOW; GLUCOSE, URINE (UA) NEGATIVE (NEGATIVE); KETONES,URINE NEGATIVE (NEGATIVE); LEUKOCYTE ESTERASE ,URINE NEGATIVE (NEGATIVE); NITRITE,URINE NEGATIVE (NEGATIVE); PH,URINE 5.5 (5-9); PROTEIN,URINE NEGATIVE (NEGATIVE)
[2019-05-03 02:07] LABS: AMORPHOUS SEDIMENT,UR FEW AMOR URATES /LPF; BACTERIA,URINE TRACE /HPF
[2019-05-03 02:08] LABS: AMPHETAMINE SCREEN, URINE NEGATIVE (NEGATIVE); BARBITURATE SCREEN URINE NEGATIVE (NEGATIVE); BENZODIAZEPINES SCREEN URINE NEGATIVE (NEGATIVE); CANNABINOID SCREEN, URINE POSITIVE (NEGATIVE); COCAINE SCREEN URINE NEGATIVE (NEGATIVE); METHADONE STAT NEGATIVE (NEGATIVE); METHAMPHETAMINE SCREEN URINE S NEGATIVE (NEGATIVE); OPIATE SCREEN URINE NEGATIVE (NEGATIVE); OXYCODONE STAT NEGATIVE (NEGATIVE); PROPOXYPHENE STAT NEGATIVE (NEGATIVE); TRICYCLIC ANTIDEPRESSANTS SCRE NEGATIVE (NEGATIVE)
[2019-05-03] MEDS ORDERED: PROM25TA14 PO (03:22)
[2019-05-03] MEDS ORDERED: ONDA4TAB11 SL (03:22)
[2019-05-03 03:33] VITALS: BP 116/82
--- NOTE | 2019-05-03 06:49 | Diagnostic Imaging Report ---
INDICATION: Nausea and vomiting. TECHNIQUE: Single view chest 1:13 AM. CORRELATION STUDY: 09/27/2018 FINDINGS: The heart size, mediastinal configuration and pulmonary vascularity are within normal limits. The lungs are clear with no consolidating infiltrate. There is no significant effusion or pneumothorax. IMPRESSION: 1. Negative for acute abnormality of the chest. Dictated by: Dictated on workstation # [id number]
== END 2019-05-03 03:33 | disposition home or self-care (01) ==
LOC: EDUNIT# 23:56 → ER 23:59
DX: R11.2 Nausea with vomiting, unspecified (principal); R07.89 Other chest pain; R10.13 Epigastric pain; J45.909 Unspecified asthma, uncomplicated; K21.9 Gastro-esophageal reflux disease without esophagitis; Z88.1 Allergy status to other antibiotic agents; Z87.820 Personal history of traumatic brain injury; Z88.8 Allergy status to other drugs, medicaments and biological substances; Z79.52 Long term (current) use of systemic steroids; Z87.891 Personal history of nicotine dependence; Z82.49 Family history of ischemic heart disease and other diseases of the circulatory system
CPT/HCPCS: 36415; 71045; 80053; 80306; 81000; 83690; 83735; 83874; 84484; 84703; 85025; 85610; 85730; 93005; 93041

== ENCOUNTER → 2019-10-22 | Outpatient (CLI) | payer BC ==
[~2019-10-22] MED LIST changes: +MULT-567 PO; -MULT1TAB69 PO; +ONDA4TAB11 SL; +PROM25TA14 PO
--- NOTE | 2019-10-22 10:25 | Diagnostic Imaging Report ---
INDICATION: Nontraumatic right-sided pain. 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 There is right-sided incomplete transitional anatomy across the lumbosacral junction as well as right-sided SI joint osteoarthritis. A fracture is not identified. IMPRESSION: Chronic findings as described. Dictated by: Dictated on workstation # [id number]
== END ==
LOC: RAD 09:37
PROVIDERS: ATTEND Family Medicine
DX: M16.11 Unilateral primary osteoarthritis, right hip (principal); M47.818 Spondylosis without myelopathy or radiculopathy, sacral and sacrococcygeal region
CPT/HCPCS: 73502

== ENCOUNTER → 2021-08-04 | Outpatient (CLI) | payer BC, OTHER ==
[~2021-08-04] MED LIST changes: +MONT-40 PO; -MONT10TA26 PO; -OMEP40CA27 PO; +OMEP40CA6 PO
== END ==
LOC: CARD 09:00
PROVIDERS: ATTEND Internal Medicine Cardiovascular Disease
DX: I51.7 Cardiomegaly (principal)
CPT/HCPCS: 93306

== ENCOUNTER 2021-12-20 07:57 | Emergency (ER) | payer OTHER ==
[~2021-12-20] VITALS: Ht 175 cm; Wt 99.0 kg
--- NOTE | 2021-12-20 08:10 | ED GU-Female ---
General Stated Complaint: PELVIC PAIN Source: patient Exam Limitations: no limitations History of Present Illness Date Seen by Provider: Dec 20, 2021 Time Seen by Provider: 08:03 Initial Comments 36-year-old female presents to the emergency department for pelvic pain. She describes it as sharp stabbing pain that is intermittent in nature, lasting about 5 to 10 minutes and then stopping for about 2 to 3 minutes. This cycle is continued since that 730 this morning. It is nonradiating with no obvious aggravating or alleviating factors. No abnormal vaginal discharge odor or bleeding. She has an IUD and denies . She did have this happen once before and no cause was ultimately identified. She fears it may be related to her IUD. She denies any changes in bowel or bladder habits. No fevers chills. She has nausea without any vomiting Allergies and Home Medications Allergies Coded Allergies: clindamycin (Verified Allergy, Severe, 09/24/17) pantoprazole (Verified Allergy, Severe, 09/24/17) cefuroxime (Verified Allergy, Mild, Patient has received Rocephin in the past, 09/26/18) Patient Home Medication List Home Medication List Reviewed: Yes Albuterol Sulfate (Proair Hfa) 1 Puff Puff, 2 PUFF INH Q4H PRN for SHORTNESS OF BREATH, (Reported) Entered as Reported by: SHERRI GUDINO on 09/27/18 0824 Cetirizine HCl (Cetirizine HCl) 10 Mg Tablet, 10 MG PO DAILY, (Reported) Entered as Reported by: SHERRI GUDINO on 11/16/15 1302 Fluticasone/Salmeterol (Advair 100-50 Diskus) 1 Each Blst.w.dev, 1 EACH IH BID Prescribed by: LUZ ELENA DOWNING on 09/29/18 1033 Guanfacine HCl (Guanfacine HCl) 1 Mg Tablet, 1 MG PO DAILY, (Reported) Entered as Reported by: SHERRI GUDINO on 09/27/18 0824 Ibuprofen (Ibuprofen) 800 Mg Tablet, 800 MG PO Q8H PRN for PAIN-MILD, (Reported) Entered as Reported by: SHERRI GUDINO on 04/06/17 0808 Ketorolac Tromethamine (Ketorolac Tromethamine) 10 Mg Tablet, 10 MG PO TID Prescribed by: RANDOLPH WYLIE MD on 12/20/21 0941 Montelukast Sodium (Montelukast Sodium) 10 Mg Tablet, 10 MG PO DAILY, (Reported) Entered as Reported by: SHERRI GUDINO on 11/16/15 1302 Multivitamin (Multivitamins) 1 Each Tablet, 1 TAB PO DAILY, (Reported) Entered as Reported by: SHERRI GUDINO on 09/27/18 1026 Norgestimate-Ethinyl Estradiol (Tri-Sprintec Tablet) 1 Each Tablet, 1 TAB PO DAILY, (Reported) Entered as Reported by: SHERRI GUDINO on 09/27/18 0824 Omeprazole (Omeprazole) 40 Mg Capsule.dr, 40 MG PO DAILY, (Reported) Entered as Reported by: SHERRI GUDINO on 04/06/17 0758 Ondansetron (Ondansetron Odt) 4 Mg Tab.rapdis, 4 MG SL Q4H PRN for NAUSEA/VO MITING Prescribed by: RIZWANA MARSHALL on 05/03/19 0322 Prednisone (Prednisone) 10 Mg Tab, 40 MG PO DAILY@0700 Prescribed by: LUZ ELENA DOWNING on 09/29/18 1033 Promethazine HCl (Promethazine Tablet) 25 Mg Tablet, 25 MG PO Q6H PRN for NAUSEA/VOMITING Prescribed by: RIZWANA MARSHALL on 05/03/19 0322 Valacyclovir HCl (Valacyclovir) 500 Mg Tablet, 500 MG PO DAILY, (Reported) Entered as Reported by: SHERRI GUDINO on 04/06/17 0758 Review of Systems Review of Systems Constitutional: no symptoms reported EENTM: no symptoms reported Respiratory: no symptoms reported Cardiovascular: no symptoms reported Gastrointestinal: nausea Genitourinary: other (Pelvic pain) : No Musculoskeletal: no symptoms reported Skin: no symptoms reported Psychiatric/Neurological: No Symptoms Reported Endocrine: No Symptoms Reported Hematologic/Lymphatic: No Symptoms Reported Past Ryxogtq-Otyndi-Rigjfb Hx Patient Social History Tobacco Use?: No Use of E-Cig and/or Vaping dev: No Substance use?: No Immunizations Up To Date Tetanus Booster (TDap): Unknown PED Vaccines UTD: Yes Seasonal Allergies Seasonal Allergies: Yes Past Medical History Surgeries: Yes (LEFT KNEE SURGERY X 2) Abdominal, Gallbladder, Orthopedic Respiratory: Yes Asthma Currently Using CPAP: No Currently Using BIPAP: No Cardiac: No Neurological: Yes (TOURETTE'S SYNDROME) Headaches /Migraines, Traumatic Brain Injury 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 Disorders: No 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 Sexually Transmitted Disease: Yes (HERPES) HIV/AIDS: No Genitourinary: No Gastrointestinal: Yes Gastroesophageal Reflux, Gall Bladder Disease Musculoskeletal: Yes (LEFT KNEE DISLOCATIONS) Endocrine: No HEENT: No Loss of Vision: Denies Hearing Impairment: Denies Cancer: No Psychosocial: No Integumentary: Yes Herpes Blood Disorders: No Adverse Reaction/Blood Tranf: No Family Medical History Reviewed Nursing Family Hx Diabetes mellitus 19 FATHER 19 MOTHER Hypertension 19 FATHER 19 MOTHER Myocardial infarction 19 FATHER 19 MOTHER No Pertinent Family Hx Physical Exam Vital Signs Vital Signs - First Documented 12/20/21 08:05 Temp 36.2 Pulse 64 Resp 18 B/P (MAP) 133/93 (106) Pulse Ox 98 Capillary Refill : Height, Weight, BMI Height: 5'9.00" Weight: 243lbs. 9.8oz. [id number]; 33.00 BMI Method:Stated General Appearance: WD/WN, no apparent distress HEENT: normal ENT inspection, pharynx normal Neck: non-tender, full range of motion, supple, normal inspection Cardiovascular: regular rate, rhythm, no edema, no gallop, no JVD, no murmur Respiratory: chest non-tender, lungs clear, normal breath sounds, no respiratory distress, no accessory muscle use Gastrointestinal: normal bowel sounds, non tender, soft, no organomegaly, no pulsatile mass Back: normal inspection, no CVA tenderness, no vertebral tenderness Extremities: normal range of motion, normal inspection, no calf tenderness Neurologic/Psychiatric: alert, normal mood/affect, oriented x 3 Skin: normal color, warm/dry Lymphatic: no adenopathy Progress/Results/Core Measures Suspected Sepsis SIRS Temperature: Pulse: Respiratory Rate: Laboratory Tests 12/20/21 08:20: White Blood Count 9.0 Blood Pressure / Mean: Laboratory Tests 12/20/21 08:20: Creatinine 0.85, Platelet Count 287, Total Bilirubin 0.4 Results/Orders Lab Results My Orders Medications Given in ED Vital Signs/I&O Capillary Refill : Departure Communication (Admissions) Patient is hemodynamically stable nonsurgical abdominal exam. Pain actually resolved while she was awaiting results here in the emergency department. Ultrasound shows likely ruptured ovarian cyst. No evidence for torsion. No evidence for bladder or ureteral pathology. No indication for intra-abdominal source at this time. No evidence for urinary tract infection. She is discharged in stable condition with supportive care Impression Primary Impression: Ovarian cyst Disposition: 01 HOME, SELF-CARE Condition: Stable Departure-Patient Inst. Referrals: ZOILA LAW MD (PCP/Family) Primary Care Physician Add. Discharge Instructions: You have an ovarian cyst that appears to have ruptured. This is likely the cause of your pain. No emergent medical condition is identified. Use prescribed medication as needed for pain. Return to the emergency department for any severe concerns. Follow-up with your primary physician for any n onemergent needs. Scripts Ketorolac Tromethamine (Ketorolac Tromethamine) 10 Mg Tablet 10 MG PO TID for Pain for 3 Days, #9 TAB Prov: RANDOLPH WYLIE DO 12/20/21 RANDOLPH WYLIE DO Dec 20, 2021 08:10
[2021-12-20] MEDS ORDERED: ONDANSETRON 4 MG (ZOFRAN) ORAL DISSOLVE TAB PO STA (08:25)
[2021-12-20] MEDS ORDERED: KETOROLAC 60 MG/2 ML VIAL IM ONE (08:30)
[2021-12-20 08:34] LABS: BASOPHILS # (AUTO) 0.1 10^3/uL (0.0-0.1); BASOPHILS % (AUTO) 1 % (0-10); EOSINOPHILS # (AUTO) 0.3 10^3/uL (0.0-0.3); EOSINOPHILS % (AUTO) 4 % (0-10); HEMATOCRIT 43 % (35-52); HEMOGLOBIN 14.5 g/dL (11.5-16.0); LYMPHOCYTES # (AUTO) 2.5 10^3/uL (1.0-4.0); LYMPHOCYTES % (AUTO) 28 % (12-44); MEAN CORPUSCULAR HEMOGLOBIN 33 pg (25-34); MEAN CORPUSCULAR HGB CONC 34 g/dL (32-36); MEAN CORPUSCULAR VOLUME 97 fL (80-99); MEAN PLATELET VOLUME 9.6 fL (9.0-12.2); MONOCYTES # (AUTO) 0.8 10^3/uL (0.0-1.0); MONOCYTES % (AUTO) 9 % (0-12); NEUTROPHILS # (AUTO) 5.4 10^3/uL (1.8-7.8); NEUTROPHILS % (AUTO) 59 % (42-75); PLATELET COUNT 287 10^3/uL (130-400)
[2021-12-20 08:36] LABS: CLARITY,URINE CLOUDY; COLOR,URINE ORANGE; GLUCOSE, URINE (UA) NEGATIVE (NEGATIVE); KETONES,URINE NEGATIVE (NEGATIVE); LEUKOCYTE ESTERASE ,URINE NEGATIVE (NEGATIVE); NITRITE,URINE NEGATIVE (NEGATIVE); PROTEIN,URINE TRACE (NEGATIVE)
[2021-12-20 08:49] LABS: AMORPHOUS SEDIMENT,UR RARE AMOR URATES /LPF; BACTERIA,URINE TRACE /HPF; BILIRUBIN,URINE 1+ (NEGATIVE); RBC,URINE RARE /HPF
[2021-12-20 08:50] LABS: ALBUMIN 4.4 GM/DL (3.2-4.5); CHLORIDE 107 MMOL/L (98-107); POTASSIUM 3.8 MMOL/L (3.6-5.0); SODIUM 140 MMOL/L (135-145)
[2021-12-20 08:51] LABS: CALCIUM 9.1 MG/DL (8.5-10.1)
[2021-12-20 08:52] LABS: GLUCOSE 113 MG/DL (70-105)
[2021-12-20 08:53] LABS: TOTAL PROTEIN 7.2 GM/DL (6.4-8.2)
[2021-12-20 08:54] LABS: BILIRUBIN,TOTAL 0.4 MG/DL (0.1-1.0); CARBON DIOXIDE 25 MMOL/L (21-32)
[2021-12-20 08:56] LABS: ALKALINE PHOSPHATASE 56 U/L (40-136); CREATININE SERUM 0.85 MG/DL (0.60-1.30); GFR ESTIMATED 90
[2021-12-20 08:57] LABS: BUN/CREATININE RATIO 14
[2021-12-20 08:59] LABS: ALANINE AMINOTRANSFERASE 20 U/L (0-55)
--- NOTE | 2021-12-20 09:34 | Diagnostic Imaging Report ---
PROCEDURE: US Non-ob pelvis comp/trans. TECHNIQUE: Multiple realtime grayscale images were obtained of the pelvis in various projections endovaginally. Transabdominal imaging was also performed. INDICATION: Pelvic pain. FINDINGS: Uterus measures 6.4 x 4.3 x 6.0 cm. Endometrial stripe is 5 mm. There is an IUD in the endometrial cavity appears to be in good position. Right ovary is normal in size. There is a 1.8 cm involuting cyst on the right ovary. Left ovary is normal in size and contains a 1.9 cm simple cyst. There is a small amount of free fluid in the right adnexa. IMPRESSION: Involuting cyst right ovary with some adjacent free fluid suggesting ruptured ovarian cyst. Dictated by: Dictated on workstation # [id number]
[2021-12-20] MEDS ORDERED: KETO10TA PO (09:41)
[2021-12-20 09:45] VITALS: BP 125/72
== END 2021-12-20 09:45 | disposition home or self-care (01) ==
LOC: EDUNIT# 07:57 → ER 08:00
DX: N83.209 Unspecified ovarian cyst, unspecified side (principal); Z97.5 Presence of (intrauterine) contraceptive device; Z28.310 Unvaccinated for COVID-19
CPT/HCPCS: 36415; 76830; 76856; 80053; 81000; 84702; 85025; 87088

== ENCOUNTER → 2022-04-07 | Outpatient (CLI) | payer OTHER ==
[~2022-04-07] MED LIST changes: +ALBU8.5H6 IH; +ALBU8.5H6 INH; +KETO10TA PO; -RT-ALBUINH IH
--- NOTE | 2022-04-07 14:01 | Diagnostic Imaging Report ---
INDICATION: PAIN OF LEFT KNEE JOINT COMPARISON: None. FINDINGS: 3 views of the left knee joint demonstrate no acute fracture or dislocation. No focal osseous lesions are seen. No significant joint effusion is seen. The surrounding soft tissue structures are unremarkable. There are no radiopaque foreign bodies. IMPRESSION: 1. No acute fractures or dislocations of the left knee joint. Dictated by: Dictated on workstation # [id number]
== END ==
LOC: ORTHO 08:27
PROVIDERS: ATTEND Orthopaedic Surgery
DX: M25.562 Pain in left knee (principal)
CPT/HCPCS: 73562; G0463; 99203

== ENCOUNTER → 2022-04-22 | Outpatient (CLI) | payer OTHER ==
--- NOTE | 2022-04-22 10:38 | Diagnostic Imaging Report ---
MRI LT LOWER EXT JOINT W/O TECHNIQUE: Multiplanar, multisequence MR imaging of the left knee was performed without contrast. COMPARISON: Left knee MRI of 10/02/2017 INDICATION: Left knee pain and swelling FINDINGS: MENISCI Medial meniscus: Normal. Lateral meniscus: Normal. LIGAMENTS ACL: Intact. PCL: Intact. MCL: MCL reconstruction has intact graft. LCL: The lateral collateral ligamentous complex is intact. EXTENSOR MECHANISM Medial patellar femoral ligament reconstruction is intact with anchor in the patella. No patellar subluxation. The quadriceps and patellar tendon are intact. CARTILAGE Medial compartment: Medial compartment articular cartilage is well preserved without focal high-grade chondromalacia. Lateral compartment: The lateral compartment articular cartilage is preserved without high-grade chondromalacia. Patellofemoral compartment: A broad region of full-thickness articular cartilage loss is present throughout the majority of the lateral patellar facet. Partial-thickness fissuring within the lateral trochlear facet. BONE No fracture, stress fracture or osteonecrosis. SOFT TISSUE Small knee joint effusion. No Franco's cyst. IMPRESSION: 1. No meniscal tear. 2. The MCL reconstruction is intact. 3. The medial patellofemoral ligament reconstruction is also intact. 4. 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 Dictated by: Dictated on workstation # [id number]
== END ==
LOC: RAD 07:24
PROVIDERS: ATTEND Orthopaedic Surgery
DX: M17.12 Unilateral primary osteoarthritis, left knee (principal)
CPT/HCPCS: 73721

== ENCOUNTER → 2022-05-05 | Outpatient (CLI) | payer OTHER | LOC: ORTHO 09:00 | PROVIDERS: ATTEND Orthopaedic Surgery | DX: M17.12 Unilateral primary osteoarthritis, left knee (principal); J45.909 Unspecified asthma, uncomplicated; E66.9 Obesity, unspecified | CPT/HCPCS: 20610; G0463 ==

== ENCOUNTER → 2022-08-18 | Outpatient (CLI) | payer OTHER | LOC: ORTHO 08:27 | PROVIDERS: ATTEND Orthopaedic Surgery | DX: M17.12 Unilateral primary osteoarthritis, left knee (principal); J45.909 Unspecified asthma, uncomplicated; E66.9 Obesity, unspecified | CPT/HCPCS: 20610 ==

== ENCOUNTER → 2022-10-27 | Outpatient (CLI) | payer OTHER ==
[2022-10-27 08:30] LABS: BASOPHILS % (AUTO) 0 % (0-10); EOSINOPHILS # (AUTO) 0.2 10^3/uL (0.0-0.3); EOSINOPHILS % (AUTO) 3 % (0-10); HEMATOCRIT 42 % (35-52); HEMOGLOBIN 14.2 g/dL (11.5-16.0); LYMPHOCYTES % (AUTO) 27 % (12-44); MEAN CORPUSCULAR HEMOGLOBIN 33 pg (25-34); MEAN CORPUSCULAR HGB CONC 34 g/dL (32-36); MEAN CORPUSCULAR VOLUME 96 fL (80-99); MONOCYTES # (AUTO) 0.6 10^3/uL (0.0-1.0); MONOCYTES % (AUTO) 8 % (0-12); NEUTROPHILS # (AUTO) 4.5 10^3/uL (1.8-7.8); NEUTROPHILS % (AUTO) 61 % (42-75); PLATELET COUNT 265 10^3/uL (130-400); WHITE BLOOD COUNT 7.5 10^3/uL (4.3-11.0)
[2022-10-27 08:43] LABS: ALBUMIN 4.2 GM/DL (3.2-4.5); CALCIUM 8.7 MG/DL (8.5-10.1); CREATININE SERUM 0.86 MG/DL (0.60-1.30); POTASSIUM 4.2 MMOL/L (3.6-5.0); TOTAL PROTEIN 6.7 GM/DL (6.4-8.2)
[2022-10-27 09:02] LABS: TSH (THYROID ANALYZER) 1.26 UIU/ML (0.35-4.94)
== END ==
LOC: LAB 08:04
PROVIDERS: ATTEND Obstetrics & Gynecology
DX: Z00.00 Encounter for general adult medical examination without abnormal findings (principal); Z13.29 Encounter for screening for other suspected endocrine disorder; Z13.220 Encounter for screening for lipoid disorders; Z13.1 Encounter for screening for diabetes mellitus
CPT/HCPCS: 36415; 80053; 80061; 83036; 84443; 85025